=== PATIENT | female | born 1950 | race Caucasian/White ===

== ENCOUNTER 2018-12-23 06:18 | Day surgery (SDC) | payer MEDICARE ==
[2018-12-23] MEDS ORDERED: DIPRIVAN 200 MG/20 ML IV ONE (06:19)
[2018-12-23] MEDS ORDERED: Lactated Ringers 1,000 ML IV SCH (06:30)
--- NOTE | 2018-12-23 08:35 | OP ---
SURGERY DATE/TIME: 12/23/2018 0755 PREOPERATIVE DIAGNOSIS: Screening exam. POSTOPERATIVE DIAGNOSIS: Polyp in the proximal transverse colon. PROCEDURE: Colonoscopy with hot polypectomy snare removal of transverse colon polyp. SURGEON: Dr. Cruz. ANESTHESIA: MAC. Medications given by anesthesia department. HISTORY: The patient is a 68 year-old white female presenting now for colonoscopic evaluation. She was appraised of the risks of the procedure including the risk of perforation, phlebitis, untoward reaction to medication, bleeding and missed lesions. The patient verbalized her understanding and desired to have the procedure performed. DESCRIPTION OF PROCEDURE: The patient was given the medications by the anesthesia department. She had continuous pulse oximetry, ECG monitoring, intermittent blood pressure monitoring and tidal CO2 monitoring during the examination. She was placed in the left lateral decubitus position. A digital rectal examination was performed and revealed normal anal sphincter tone and no masses. The flexible Olympus pediatric colonoscope was used to intubate the rectum. A view of the colon was developed sequentially to the cecum. Upon insertion and withdrawal was noted a polyp measuring approximately 1.5 cm in size that was somewhat pedunculated this is removed using hot polypectomy snare and retrieved for pathologic evaluation. No other mucosal lesions being noted, the scope was removed from the patient who tolerated the procedure well and was sent back to OP recovery in good condition. The prep was noted to be fair to good.
[2018-12-23 09:09] VITALS: O2SAT 98
[2018-12-23 09:25] VITALS: BP 154/69; PULSE 61
== END 2018-12-23 09:30 | disposition home or self-care (01) ==
LOC: SDC 06:18
PROVIDERS: ATTEND Family Medicine
DX: Z12.11 Encounter for screening for malignant neoplasm of colon (principal); K63.5 Polyp of colon; E11.9 Type 2 diabetes mellitus without complications; I10 Essential (primary) hypertension; K21.9 Gastro-esophageal reflux disease without esophagitis
CPT/HCPCS: J2704

== ENCOUNTER 2020-03-24 06:47 | Day surgery (SDC) | payer MEDICARE ==
[2020-03-24] MEDS ORDERED: EMLA Cream 5 GM TP ONE ×2 (06:53→06:57)
[2020-03-24] MEDS ORDERED: Lactated Ringers 1,000 ML IV ONE ×2 (06:53→07:24)
[2020-03-24] MEDS ORDERED: Lactated Ringers 1,000 ML IV SCH (07:00)
[2020-03-24] MEDS ORDERED: Sensorcaine 0.25% 10 ML ONE (07:24)
--- NOTE | 2020-03-24 08:00 | HP ---
DATE OF SURGERY: 03/24/2020 ADMISSION DIAGNOSIS: Left breast cancer. ANTICIPATED PROCEDURE: Wide resection and [place] node. HISTORY OF PRESENT ILLNESS: The patient had biopsy proven left breast cancer located about 2:00 left axilla that is palpable, size is 1.7 per radiograph. Options discussed with her and she wished to proceed with breast conservation therapy if possible. Risks would include radiation therapy and she is aware of this and it is independent of chemotherapy or hormone manipulation which would be separate. PAST MEDICAL HISTORY: ALLERGIES: DIPHENHYDRAMINE HCL. MEDICATIONS: See list. PAST SURGICAL HISTORY: None recent. SOCIAL HISTORY: Negative. FAMILY HISTORY: Negative. REVIEW OF SYSTEMS: CVS: Negative. PULMONARY: Negative. PHYSICAL EXAMINATION: VITAL SIGNS: Normal. CHEST: Clear. COR: Regular. ABDOMEN: Satisfactory. BREAST: There is a mass left upper outer breast that is palpable but just barely. There is a little bruising from the needle tap headed to this lesion. There is no palpable lymphadenopathy. IMPRESSION: Left breast biopsy proven cancer. PLAN: Left lumpectomy, axillary [place] lymph node biopsy, continued treatment as necessary.
[2020-03-24] MEDS ORDERED: CEFAZOLIN 2 GM-D5W BAG** 2 GM/50 ML ML IV ONE (08:11)
[2020-03-24] MEDS ORDERED: CEFAZOLIN 2 GM-D5W BAG** 2 GM/50 ML ML IV SCH (08:30)
--- NOTE | 2020-03-24 11:35 | XRAY ---
Indication: Left breast carcinoma. Patient received 4 left breast periareolar subcutaneous injections totaling 850 Ci of technetium 99 sulfur colloid. Warm compress applied. Delayed imaging obtained in the anterior and lateral plane demonstrates a single focus of increased radiopharmaceutical activity far lateral left chest. Skin was demarcated for the surgeon. Impression: Single focus radiopharmaceutical active lymph node far lateral aspect left chest.
[2020-03-24] MEDS ORDERED: BRIDION 200MG/2ML IV ONE (12:07)
[2020-03-24] MEDS ORDERED: Decadron 4 MG INJ ONE (12:07)
[2020-03-24] MEDS ORDERED: Zemuron 100 MG/10 ML ONE (12:07)
[2020-03-24] MEDS ORDERED: DIPRIVAN 200 MG/20 ML IV ONE (12:07)
[2020-03-24] MEDS ORDERED: SUBLIMAZE 100 MCG/2 ML ONE ×2 (12:07→13:33)
[2020-03-24] MEDS ORDERED: Zofran 4 MG/2 ML VIAL ONE ×2 (12:07→13:32)
[2020-03-24] MEDS ORDERED: DILAUDID 2 MG INJECTION ONE (13:34)
[2020-03-24 14:57] VITALS: O2SAT 98
[2020-03-24 15:53] VITALS: PULSE 78
[2020-03-24 17:19] VITALS: BP 155/85
--- NOTE | 2020-03-25 07:49 | OP ---
SURGERY DATE/TIME: 03/24/2020 1206 PREOPERATIVE DIAGNOSIS: Left breast cancer. POSTOPERATIVE DIAGNOSIS: Left breast cancer. PROCEDURES: 1) Wide excision of left breast through one incision. 2) Left axillary Rembert lymph node through a second incision. SURGEON: Serafin Skaggs M.D. ANESTHESIA: General. COMPLICATIONS: None. CONDITION: Stable. INDICATION: The patient has biopsy proven invasive cancer. DESCRIPTION OF PROCEDURE: Taken to surgery. General anesthetic. Routine prep and drape. The Node Seeker was used in the inferior axillary area. Rembert node was sent. There were some succulent nodes above this which were sent separately. The Rembert node had counts of over 400. This incision was closed over a drain. The breast incision was taken separately and the breast lesion was widely excised. Hemostasis obtained with electrocautery. Closed with 3-0 Vicryl, 4-0 Vicryl and Steri-Strips. The patient tolerated the procedure satisfactorily.
== END 2020-03-24 16:55 | disposition home or self-care (01) ==
LOC: SDC 06:47
PROVIDERS: ATTEND Surgery
DX: C50.912 Malignant neoplasm of unspecified site of left female breast (principal); E11.9 Type 2 diabetes mellitus without complications; Z79.899 Other long term (current) drug therapy
CPT/HCPCS: 19120; 38500; 78195; 82962; 93005; A9541; 88307; 88360; 99100; J0690; J1100; J1170; J2405; J2704; J3010; A9270-GY

== ENCOUNTER 2021-05-04 09:25 | Day surgery (SDC) | payer MEDICARE ==
--- NOTE | 2021-04-28 14:58 | HP ---
DATE OF SURGERY: 05/04/2021 HISTORY OF PRESENT ILLNESS: The patient presents with a history of a left breast cancer. The patient had chemotherapy per her report. The patient has been cleared for removal of her port. The patient desires removal. PAST MEDICAL HISTORY: Diabetes, breast cancer, kidney disease, reflux. PAST SURGICAL HISTORY: Two sections. Left breast surgery. Port placement. ALLERGIES: NKDA. MEDICATIONS: Humalog, folic acid, omeprazole, loratadine, anastrozole, gabapentin, glipizide, vitamin B12, Zetia, acebutolol. FAMILY HISTORY: None reported. SOCIAL HISTORY: None reported. REVIEW OF SYSTEMS: CONSTITUTIONAL: Denies fever or chills. CHEST: Denies shortness of breath. CVS: Denies chest pain. ABDOMEN: Denies abdominal pain. INTEGUMENTARY: Negative. PHYSICAL EXAMINATION: GENERAL: No acute distress. CHEST: Nonlabored. No shortness of breath. CVS: Regular rate and rhythm. ABDOMEN: Soft. EXTREMITIES: No edema. NEUROLOGIC: Alert. PSYCHIATRIC: Appropriate. IMPRESSION: Undesired port. PLAN: Port-A-Cath removal with Dr. Serafin Skaggs. As dictated by Bere Pierce NP.
[~2021-05-04 09:25] MED LIST: XYLOCAINE 1% HCL 20 ML MDV ONE
[2021-05-04] MEDS ORDERED: Lactated Ringers 1,000 ML IV SCH (10:00)
[2021-05-04] MEDS ORDERED: Xylocaine-Mpf 2% 5 Ml Vial ONE (11:55)
[2021-05-04] MEDS ORDERED: SUBLIMAZE 100 MCG/2 ML ONE (11:55)
[2021-05-04] MEDS ORDERED: Versed 2 MG/2 ML Injection ONE (11:55)
[2021-05-04] MEDS ORDERED: DIPRIVAN 200 MG/20 ML IV ONE (11:55)
[2021-05-04 14:19] VITALS: BP 192/90; PULSE 53; O2SAT 100
--- NOTE | 2021-05-04 14:49 | OP ---
SURGERY DATE/TIME: 05/04/2021 1233 PREOPERATIVE DIAGNOSIS: Patient completed therapy requiring port removal. POSTOPERATIVE DIAGNOSIS: Patient completed therapy requiring port removal. PROCEDURE: Complete port removal. SURGEON: Serafin Skaggs M.D. ANESTHESIA: MAC. INDICATION: A patient requiring port removal. She did request anesthetic. DESCRIPTION OF PROCEDURE: She was taken to surgery. MAC sedation. Routine prep and drape. 1% lidocaine. Port-A-Cath removed in toto. The catheter hole closed 3-0 Vicryl. Skin closed with 4-0 Vicryl and Steri-Strips. The patient tolerated the procedure satisfactorily.
== END 2021-05-04 14:10 | disposition home or self-care (01) ==
LOC: SDC 09:25
PROVIDERS: ATTEND Surgery
DX: Z45.2 Encounter for adjustment and management of vascular access device (principal); Z85.3 Personal history of malignant neoplasm of breast; E11.9 Type 2 diabetes mellitus without complications; Z79.899 Other long term (current) drug therapy
CPT/HCPCS: 82947; J2250; J2704; J3010

== ENCOUNTER 2021-06-08 14:03 | Emergency (ER) | payer MEDICARE ==
--- NOTE | 2021-06-08 14:34 | ERPHSYRPT ---
- History of Present Illness Time Seen by Provider: 06/08/21 14:05 Source: patient, EMS Exam Limitations: no limitations Patient Subjective Stated Complaint: Pt was trampled by her dogs in her house and landed on her right leg, right hip and left shoulder Triage Nursing Assessment: Pt brought to the ER by EMS, hypertensive, rates pain 8/10 to right hip, right leg, and left shoulder, no bruising noted, no bleeding, pt got hit by her laborador dogs and fell from standing to the carpeted floor, denies LOC, denies hitting head, doesn't appear to be in any distress Physician History: 70-year-old female presented in the ER after ground-level fall when her Labrador dog hit her and she landed on right hip on a carpeted floor and is also complaining of some pain in the left shoulder with history of previous shoulder surgeries. Patient reports not hitting her head, neck or back without any loss of consciousness or feeling dizzy/lightheaded. Denies any chest or abdominal pain. No limb shortening noticed. She does not remember hitting her left shoulder but does have pain. She was not able to get up and ambulate until EMS arrived. Occurred: this afternoon Reason for Fall: fell from standing pos Injuries/Pain Location: lower extremity Loss of Consciousness: no loss of consciousness Quality: dullness, sharpness Severity of Pain-Max: moderate Severity of Pain-Current: moderate Modifying Factors: Improves With: rest. Worsens With: movement Associated Symptoms (Fall): extremity injury, No abdominal pain, No back pain, No confusion, No dizziness, No headache, No lightheadedness, No muscle spasms, No nausea, No neck pain, No ringing in ears, No seizures, No shortness of breath, No slurred speech, No trouble walking, No vomiting, No vision changes Allergies/Adverse Reactions: diphenhydramine HCl [From Benadryl] Allergy (Mild, Verified 06/08/21 14:14) Rash red face Home Medications: Cholecalciferol (Vitamin D3) [Vitamin D3] 400 unit PO DAILY 12/17/18 [History] Ezetimibe 10 mg [Zetia 10 MG] 10 mg PO DAILY 12/17/18 [History] Loratadine 10 mg [Claritin 10 mg] 10 mg PO DAILY 12/17/18 [History] Acebutolol 200 mg [Sectral 200 MG] 200 mg PO DAILY 12/23/18 [History] Gabapentin [Neurontin] 300 mg PO TID 12/23/18 [History] Glipizide 5 mg [Glucotrol 5 MG] 5 mg PO BID 12/23/18 [History] Omeprazole 20 mg PO DAILY 12/23/18 [History] Anastrozole [Arimidex] 1 mg PO DAILY 04/27/21 [History] Folic Acid 1 mg [Folate 1 mg] 1 mg PO DAILY 04/27/21 [History] Insulin Lispro [Humalog] 100 unit SQ QID 04/27/21 [History] Vit B12/Pyridoxine HCl/Vit B1 [Neuro-B12 Forte Nr Vial] 10 ml IM CLARIFY 04/27/21 [History] Hx Tetanus, Diphtheria Vaccination/Date Given: Yes Hx Influenza Vaccination/Date Given: Yes Hx Pneumococcal Vaccination/Date Given: Yes Travel Risk - International Travel Have you traveled outside of the country in past 3 weeks: No - Coronavirus Screening Are you exhibiting any of the following symptoms?: No Close contact with a COVID-19 positive Pt in past 14-21 Days: No - Vaccine Status Have you recieved a Covid-19 vaccination: Yes [employer] Dean: Moderna - Vaccination Dates Date of 2cond Vaccination (if applicable): 12/2020 - Review of Systems Constitutional: No Symptoms Eyes: No Symptoms Ears, Nose, & Throat: No Symptoms Respiratory: No Symptoms Cardiac: No Symptoms Abdominal/Gastrointestinal: No Symptoms Genitourinary Symptoms: No Symptoms Musculoskeletal: Fall, Injury, Joint Pain Neurological: No Symptoms Psychological: No Symptoms Endocrine: No Symptoms Hematologic/Lymphatic: No Symptoms - Past Medical History Pertinent Past Medical History: Yes Neurological History: No Pertinent History ENT History: Cataracts Cardiac History: High Cholesterol, Hypertension Respiratory History: No Pertinent History Endocrine Medical History: Diabetes Type II Musculoskeletal History: Other GI Medical History: GERD History: Other Psycho-Social History: No Pertinent History Female Reproductive Disorders: No Pertinent History Other Medical History: 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, psoriatic arthritis - Past Surgical History Past Surgical History: Yes Neuro Surgical History: No Pertinent History Cardiac: No Pertinent History Respiratory: No Pertinent History Gastrointestinal: No Pertinent History Genitourinary: No Pertinent History Musculoskeletal: Orthopedic Surgery Female Surgical History: Section, Tubal Ligation Other Surgical History: left arm fx repair with hardware,breast cancer surgery,left rotator cuff, port placed,left arm tanvir placed,c-sections times 2 - Social History Smoking Status: Never smoker Exposure to second hand smoke: No Drug Use: none Patient Lives Alone: No - Female History Hx Now: No - Nursing Vital Signs Nursing Vital Signs: Initial Vital Signs Temperature 97.7 F 06/08/21 14:04 Pulse Rate 62 06/08/21 14:04 Respiratory Rate 21 06/08/21 14:04 Blood Pressure 195/100 06/08/21 14:04 O2 Sat by Pulse Oximetry 98 06/08/21 14:04 Pain Scale Pain Intensity 8 - [place] Coma Score Best Eye Response (Springer): (4) open spontaneously Best Verbal Response (Springer): (5) oriented Best Motor Response ([place]): (6) obeys commands [place] Total: 15 - Physical Exam General Appearance: no apparent distress, alert Head Injury: no evidence of injury, No raccoon eyes, No swelling, No tenderness Eye Exam: PERRL/EOMI, eyes nml inspection ENT Exam: airway nml, No evidence of ENT injury, No dental injury Neck Exam: supple, trachea midline, full range of motion, normal alignment, normal inspection Respiratory/Chest Exam: normal breath sounds, respiratory distress, No chest tenderness Cardiovascular Exam: normal heart sounds, regular rate/rhythm Gastrointestinal Exam: soft, normal bowel sounds, No tenderness Back Exam: normal inspection, normal range of motion, No CVA tenderness Extremity Exam: normal inspection, normal range of motion, pelvis stable, bony point tenderness (Right upper tibia.), hip tenderness (Right. 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 Offered pain medication which she refused. No limitation range of motion but does have some pain with movements. Recommended taking Tylenol as needed and outpatient follow-up. Discussed signs symptoms of worsening needing return to ER which she seems understanding. She is advised to use walker/cane for ambulation as needed. It was a clear mechanical fall, do not think needs any lab work or further evaluation and also did not hit her head. Stable for discharge with outpatient follow-up. Discussed signs symptoms of worsening needing return to ER which he seems understanding. Counseled pt/family regarding: diagnosis, need for follow-up, rad results - Departure Departure Disposition: Home Clinical Impression: Fall from ground level Contusion of right hip Qualifiers: Encounter type: initial encounter Qualified Code(s): S70.01XA - Contusion of right hip, initial encounter Left shoulder strain Qualifiers: Encounter type: initial encounter Qualified Code(s): S46.912A - Strain of unspecified muscle, fascia and tendon at shoulder and upper arm level, left arm, initial encounter Condition: Stable Critical Care Time: No Referrals: SAMAN BARNETT [Primary Care Provider] - (Call tomorrow for reevaluation) Instructions: Contusion (DC), Preventing Falls Additional Instructions: Take Tylenol as needed. Use cane/walker for ambulation as needed. Follow-up with primary care for reevaluation. Return to ER for worsening pain, difficulty ambulation or if have any headache, dizziness, lightheadedness, not feeling herself etc.
[2021-06-08 15:24] VITALS: BP 149/76; PULSE 57
--- NOTE | 2021-06-08 15:48 | XRAY ---
Exam: Two-view right lower leg exam from 06/08/2021. Comparison: None. Indication: 70-year-old female, status post fall. Findings: 2 AP images and 2 lateral images are submitted for evaluation. The bones are demineralized. I do not see any evidence of acute fracture of the right tibia or fibula. Extensive vascular calcification is seen. Is this patient diabetic? Moderate tricompartmental osteoarthritis of the right knee is seen. I also note some mild hypertrophic spurring involving the distal end of the medial malleolus. The right ankle mortise appears fairly well-maintained. Moderate plantar and mild posterior right calcaneal spurring is seen. Moderate degenerative changes are seen within the distal tarsal region, as well as the tarsal-metatarsal junctions. Impression: 1. I see no acute fracture of the right tibia or fibula. 2. Bone demineralization, extensive atherosclerotic vascular calcification, tricompartmental osteoarthritis of the right knee, calcaneal spurring, and advanced degenerative changes of the right midfoot and distal hindfoot are seen.
--- NOTE | 2021-06-08 15:56 | XRAY ---
Exam: 3 views of the left shoulder from 06/08/2021. Comparison: None. Indication: 70-year-old female, status post fall. Findings: AP internal rotation, AP external rotation, and two Y views of the left shoulder were obtained. I see no acute fracture or dislocation. There is a mid left humerus orthopedic side plate with at least 6 adjoining screws. There is perhaps an old healed fracture which is partially seen within the mid left humerus. The left acromioclavicular joint space is very prominent, as I believe there has been prior surgical excision of the lateral end of the left clavicle. There is some mild spurring along the undersurface of the acromion of the left scapula. The glenohumeral joint space is mildly narrowed. The bones are demineralized. I note some subtle soft tissue calcifications overlying the superior medial aspect of the left humeral head and just superior to the glenohumeral joint space. This may reflect hydroxyapatite deposition disease. Impression: 1. No acute fracture or dislocation of the left shoulder is seen. 2. Numerous other incidental findings, as discussed above.
--- NOTE | 2021-06-08 16:04 | XRAY ---
Exam: 4 view left humerus series from 06/08/2021. Comparison: None. Indication: 70-year-old female, status post fall. Findings: 4 images including AP internal rotation and AP external rotation images were obtained. An orthopedic sideplate with 6 adjoining screws traverses a healed or almost healed fracture of the left humeral shaft centered just distal to the midpoint. A definite acute fracture line is not seen. The bones are demineralized. The orthopedic sideplate appears intact. I again see apparent prior surgical excision of the lateral end of the left clavicle. Mild narrowing of the glenohumeral joint space of the left shoulder is seen. There also appears to be soft tissue calcifications adjacent to the superior and superior medial edge of the left humeral head which may reflect hydroxyapatite deposition disease. The left lung appears grossly clear. Impression: 1. I see no acute fracture of the left humerus. 2. There is a healed or almost healed fracture of the left humeral shaft just distal to the midpoint which is being secured in near anatomical position and alignment by an traversing orthopedic sideplate and 6 adjoining screws. Correlate with trauma history.
--- NOTE | 2021-06-08 16:10 | XRAY ---
Exam: 2 views the right hip including an AP film of the pelvis from 06/08/2021. Comparison: None. Indication: 70-year-old female, status post fall. Findings: Coned-down AP and frog-leg lateral views of the right hip were obtained. In addition, an AP view of the pelvis including both hips was obtained. The patient is mildly rotated toward the left on the pelvis radiograph. Moderate stool is seen within the distal descending colon and rectosigmoid colon. No obvious bowel obstruction is seen. No acute fracture or dislocation of the right hip is seen. The bones are significantly demineralized. The hip joint spaces are fairly well-preserved, although there is some mild marginal acetabular spurring. No definite fracture within the pelvis is seen. I note some deformity at the superior lateral margin of the left iliac bone which appears to be chronic. Some soft tissue calcification is seen overlying both femoral regions, right greater than left. The reason for this is not clear. Arthritic change is seen within the lower lumbar spine at L4-L5. Impression: 1. No acute fracture or dislocation of the right hip. 2. Significant bone demineralization. 3. Other incidental findings, as discussed above.
[2021-06-08 16:30] VITALS: O2SAT 98
== END 2021-06-08 16:49 | disposition home or self-care (01) ==
LOC: ED 14:03
DX: S70.01XA Contusion of right hip, initial encounter (principal); S46.912A Strain of unspecified muscle, fascia and tendon at shoulder and upper arm level, left arm, initial encounter; Z79.899 Other long term (current) drug therapy; I10 Essential (primary) hypertension; E78.00 Pure hypercholesterolemia, unspecified; E11.9 Type 2 diabetes mellitus without complications; W54.1XXA Struck by dog, initial encounter
CPT/HCPCS: 73030; 73060; 73502; 73590; 99284

== ENCOUNTER 2021-07-02 11:50 | Emergency (ER) | payer MEDICARE ==
[2021-07-02 12:19] VITALS: O2SAT 100
--- NOTE | 2021-07-02 12:35 | ERPHSYRPT ---
- History of Present Illness Time Seen by Provider: 07/02/21 12:32 Source: patient Exam Limitations: no limitations Patient Subjective Stated Complaint: C/O pain to right hand, fingers, and wrist. States she fell a few weeks ago but the pain started a few days ago. She does not feel like this pain is related to the fall or her arthritis. Patient states, "this is a different pain than my arthritis pain." Triage Nursing Assessment: Patient ambulated back to ED without difficulties. Patient is alert and able to answer questions appropriately. Patient is able to bend/move fingers and wrist to RUE. Good capillary refill. Radial pulse present. Fingers and wrist are swollen. Anterior wrist is red and warm. No skin alterations noted to RUE anywhere. Physician History: C/O pain to right hand, fingers, and wrist. States she fell a few weeks ago but the pain started a few days ago. She does not feel like this pain is related to the fall or her arthritis. Patient states, "this is a different pain than my arthritis pain." Occurred: last week Method of Injury: fell Quality: constant Severity of Pain-Max: moderate Severity of Pain-Current: moderate Extremities Pain Location: wrist: right, hand: right Modifying Factors: Improves With: nothing Associated Symptoms: none Body Map: 1 - area of swelling and pain Allergies/Adverse Reactions: diphenhydramine HCl [From Benadryl] Allergy (Mild, Verified 07/02/21 12:19) Rash red face Home Medications: Cholecalciferol (Vitamin D3) [Vitamin D3] 400 unit PO DAILY 12/17/18 [History] Ezetimibe 10 mg [Zetia 10 MG] 10 mg PO DAILY 12/17/18 [History] Loratadine 10 mg [Claritin 10 mg] 10 mg PO DAILY 12/17/18 [History] Acebutolol 200 mg [Sectral 200 MG] 200 mg PO DAILY 12/23/18 [History] Gabapentin [Neurontin] 300 mg PO TID 12/23/18 [History] Omeprazole 20 mg PO DAILY 12/23/18 [History] Anastrozole [Arimidex] 1 mg PO DAILY 04/27/21 [History] Folic Acid 1 mg [Folate 1 mg] 1 mg PO DAILY 04/27/21 [History] Insulin Lispro [Humalog] 100 unit SQ QID 04/27/21 [History] Vit B12/Pyridoxine HCl/Vit B1 [Neuro-B12 Forte Nr Vial] 10 ml IM CLARIFY 04/27/21 [History] Hx Tetanus, Diphtheria Vaccination/Date Given: Yes Hx Influenza Vaccination/Date Given: Yes Hx Pneumococcal Vaccination/Date Given: Yes Travel Risk - International Travel Have you traveled outside of the country in past 3 weeks: No - Coronavirus Screening Are you exhibiting any of the following symptoms?: No Close contact with a COVID-19 positive Pt in past 14-21 Days: No - Vaccine Status Have you recieved a Covid-19 vaccination: Yes Hematology Supervisor: Moderna - Vaccination Dates Date of 2cond Vaccination (if applicable): 12/2020 - Review of Systems Constitutional: No Symptoms Eyes: No Symptoms Ears, Nose, & Throat: No Symptoms Respiratory: No Symptoms Cardiac: No Symptoms Abdominal/Gastrointestinal: No Symptoms Genitourinary Symptoms: No Symptoms Musculoskeletal: Fall, Joint Pain, Joint Swelling, No Injury, No Joint Redness Skin: No Symptoms Neurological: No Symptoms Psychological: No Symptoms - Past Medical History Pertinent Past Medical History: Yes Neurological History: No Pertinent History ENT History: Cataracts Cardiac History: High Cholesterol, Hypertension Respiratory History: No Pertinent History Endocrine Medical History: Diabetes Type II Musculoskeletal History: Other GI Medical History: GERD History: Other Psycho-Social History: No Pertinent History Female Reproductive Disorders: No Pertinent History Other Medical History: 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, psoriatic arthritis - Past Surgical History Past Surgical History: Yes Neuro Surgical History: No Pertinent History Cardiac: No Pertinent History Respiratory: No Pertinent History Gastrointestinal: No Pertinent History Genitourinary: No Pertinent History Musculoskeletal: Orthopedic Surgery Female Surgical History: Section, Tubal Ligation Other Surgical History: left arm fx repair with hardware,breast cancer surgery,left rotator cuff, port placed,left arm tanvir placed,c-sections times 2 - Social History Smoking Status: Never smoker Exposure to second hand smoke: No Drug Use: none Patient Lives Alone: No - Nursing Vital Signs Nursing Vital Signs: Initial Vital Signs Temperature 97.7 F 07/02/21 12:00 Pulse Rate 67 07/02/21 12:00 Respiratory Rate 20 07/02/21 12:00 Blood Pressure 154/97 07/02/21 12:00 O2 Sat by Pulse Oximetry 100 07/02/21 12:00 Pain Scale Pain Intensity 9 - Physical Exam General Appearance: no apparent distress Eyes, Ears, Nose, Throat Exam: normal ENT inspection Neck Exam: normal inspection Cardiovascular/Respiratory Exam: chest non-tender Abdominal Exam: non-tender Shoulder Exam: normal inspection Elbow/Forearm Exam: normal inspection Wrist Exam: limited ROM, pain, soft tissue tenderness, swelling, No normal ROM, No bone tenderness Hand Exam: limited ROM, soft tissue tenderness, stiffness, swelling SpO2: 100 Procedures - Splinting Time of Procedure: 12:58 Location of Splint: Right, Wrist Type of Splint: Velcro Splint Splint Applied By: ED Nurse Pre-Proc Neuro Vasc Exam: normal Post-Proc Neuro Vasc Exam: neurovascular intact - Course Nursing assessment & vital signs reviewed: Yes - Radiology Exams Wrist X-ray Interpretation: Reviewed by me (right scaphoid fracture) Ordered Tests: Active Orders 24 hr Category Date Time Status Splint STAT Care 07/02/21 12:54 Active FOREARM Stat Exams 07/02/21 12:37 Taken HAND (MINIMUM 3 VIEWS) Stat Exams 07/02/21 12:17 Taken - Progress Progress: unchanged, pain not gone completely Counseled pt/family regarding: diagnosis, rad results - Departure Departure Disposition: Home Clinical Impression: Scaphoid fracture, wrist, closed Qualifiers: Encounter type: initial encounter Scaphoid bone location: middle third Fracture alignment: nondisplaced Laterality: right Qualified Code(s): S62.024A - Nondisplaced fracture of middle third of navicular [scaphoid] bone of right wrist, initial encounter for closed fracture Condition: Stable Critical Care Time: No Referrals: SAMAN BARNETT [Primary Care Provider] - [facility] M-F [id number] Instructions: Boxer's Fracture (DC) Additional Instructions: Discharge/Care Plan OSIELJAYLON WINCHESTER was seen on 07/02/21 in the Emergency Room. The patient was counseled regarding Diagnosis,Lab results, Imaging studies, need for follow up and when to return to the Emergency Room. Prescriptions given: Discharge Note I have spoken with the patient and/or caregivers. I have explained the patient's condition, diagnosis and treatment plan based on the information available to me at this time. I have answered the patient's and/or caregiver's questions and addressed any concerns. The patient and/or caregivers have as good understanding of the patient's diagnosis, condition and treatment plan as can be expected at this point. The vital signs have been stable. The patient's condition is stable and appropriate for discharge from the emergency department. The patient will pursue further outpatient evaluation with the primary care physician or other designated or consulting physician as outlined in the d ischarge instructions. The patient and/or caregivers are agreeable to this plan of care and follow-up instructions have been explained in detail. The patient and/or caregivers have received these instruction. The patient/and or caregivers are aware that any significant change in condition or worsening of symptoms should prompt an immediate return to this or the closest emergency department or call 911. CARTAGENAJAYLON RANULFO was seen on 07/02/21 n the Emergency Room. At that time you were treated for an emergent condition, during your visit Laboratory, Radiology and/or other procedures may have been ordered. It is very important that you follow-up with your Primary Care Physician SAMAN BARNETT within the next 24-48 hours to review your Emergency Room visit and the final results of testing that was ordered. Some test results such as Urine Cultures, Blood Cultures, and other cultures if ordered will not be finalized for 24-48 hours. If you do not have a Primary Care Provider please call the [facility] dep [facility] at [phone] ext [phone] to obtain a copy of your results or you may sign into our patient portal to obtain these results by visiting us @ [email or web address] and completing the following steps: 1. Click on the Patient Portal link 2. Click the Patient Self Enrollment Link to complete the enrollment form and entering your 3. Once the enrollment form is completed you will receive an email with a temporary ID and password at the email address you provided. 4. Next choose a user name and password. Your user name must be at least 4 characters long and your password must be at least 4 characters long. 5. Choose a security question from the list and provide your answer to the question. If you already have signed into the Health Portal you may access your Health Care Information 08/04 by the following steps: 1. Login to our website @ [email or web address] 2. Enter your original user name and password. FAQS The [facility] Health Portal is an online tool that contains your Lab Results, Radiology Reports, Visit History, Discharge Instructions and Health Summary Lab and Radiology Results will not be available for 72 hours on the portal. The Portal is a secure site, passwords are encryted and URLs are re-written so they cannot be copied and pasted. You and authorized family members are the only ones who can access your Portal. Also there is a timeout feature that protects your information if you leave the Portal page open. If you have technical difficulty please use the Contact Us link on the page this will allow you to submit any questions you have regarding the Portal or you may contact the Medical Record Department at [phone] ext [phone]. Prescriptions: Naproxen 375 mg [Naprosyn 375 mg] 375 mg PO Q8H #15 tablet
[2021-07-02 12:59] VITALS: BP 166/91; PULSE 62
--- NOTE | 2021-07-02 22:11 | XRAY ---
Indication: Pain following fall 3 weeks ago. Comparison: None 2 view right forearm demonstrates osteopenia, moderate/advanced wrist osteoarthritis, and extensive vascular calcifications. No acute fracture, dislocation, or suspicious bony lesions.
--- NOTE | 2021-07-02 22:13 | XRAY ---
Indication: Pain following fall 3 weeks ago. Comparison: None 3 view right hand demonstrates osteopenia, moderate/advanced osteoarthritis all IP joints/all MCP/1st metacarpal multangular articulation/wrist, and extensive vascular calcifications. No acute fracture, dislocation, or suspicious bony lesions.
== END 2021-07-02 13:21 | disposition home or self-care (01) ==
LOC: ED 11:50
DX: S62.021A Displaced fracture of middle third of navicular [scaphoid] bone of right wrist, initial encounter for closed fracture (principal); M25.531 Pain in right wrist; M79.641 Pain in right hand; M79.644 Pain in right finger(s); W19.XXXS Unspecified fall, sequela; M19.90 Unspecified osteoarthritis, unspecified site; Z79.899 Other long term (current) drug therapy
CPT/HCPCS: 73090; 73130; 99284; L3908

== ENCOUNTER 2022-07-12 09:46 | Day surgery (SDC) | payer MEDICARE ==
--- NOTE | 2022-07-10 11:38 | HP ---
DATE OF SURGERY: 07/12/2022 HISTORY OF PRESENT ILLNESS: The patient is a 71-year-old female who presents with complaints of some recently increasing firmness at her old breast lumpectomy site. This is concerning for the patient as she thinks this is recurrence of breast cancer. She saw Dr. Rivera six months ago and had a negative mammogram. The patient was thinking that since then this area has become more prominent and firmer. It appears that the cancer she had with treatment was radiation treatment and lumpectomy back in 2019 of left breast. PAST MEDICAL HISTORY: Breast cancer. Hyperlipidemia. Diabetes. PAST SURGICAL HISTORY: Left breast lumpectomy. section. ALLERGIES: BENADRYL. MEDICATIONS: Allopurinol, anastrozole, metformin, Zetia, Lantus, Simvastatin, diclofenac, insulin, folic acid, glipizide, Levemir, gabapentin. FAMILY HISTORY: None reported. SOCIAL HISTORY: None reported. REVIEW OF SYSTEMS: CONSTITUTIONAL: Denies fever or chills. CHEST: Denies shortness of breath. CVS: Denies chest pain. ABDOMEN: Denies abdominal pain. PHYSICAL EXAMINATION: GENERAL: No acute distress. CHEST: Nonlabored. No shortness of breath. CVS: Regular rate and rhythm. ABDOMEN: Soft. IMPRESSION: A recently increased firmness at old lumpectomy site of left breast and history of left breast cancer. PLAN: Left breast re-excision of previous lumpectomy site with Dr. Serafin Skaggs. As dictated by Bere Pierce NP.
[~2022-07-12 09:46] MED LIST changes: +Sensorcaine 0.25% 10 ML ONE; -XYLOCAINE 1% HCL 20 ML MDV ONE
[2022-07-12] MEDS ORDERED: Lactated Ringers 1,000 ML IV SCH (10:00)
[2022-07-12] MEDS ORDERED: CEFAZOLIN 2 GM-D5W BAG** 2 GM/50 ML ML IV SCH (10:00)
[2022-07-12 10:43] LABS: ALBUMIN 4.3 g/dL (3.5-5.0); BILIRUBIN,TOTAL 0.6 mg/dL (0.2-1.3); Calcium 9.4 mg/dL (8.4-10.2); Creatinine 1 1.37 mg/dL (0.52-1.04); EST GLOMERULAR FILTRATION RATE 40.3 ML/MIN; Potassium 3.8 mmol/L (3.5-5.1); Total Protein 7.3 g/dL (6.3-8.2)
[2022-07-12] MEDS ORDERED: Versed 2 MG/2 ML Injection ONE (12:27)
[2022-07-12] MEDS ORDERED: DIPRIVAN 200 MG/20 ML IV ONE (12:27)
[2022-07-12] MEDS ORDERED: Xylocaine-Mpf 2% 5 Ml Vial ONE (12:27)
[2022-07-12] MEDS ORDERED: SUBLIMAZE 100 MCG/2 ML ONE ×2 (12:28→13:31)
[2022-07-12] MEDS ORDERED: Ephedrine Sulfate 50 MG/ML ONE (12:45)
[2022-07-12] MEDS ORDERED: Zofran 4 MG/2 ML VIAL ONE (13:09)
--- NOTE | 2022-07-12 13:30 | OP ---
SURGERY DATE/TIME: 07/12/2022 1230 PREOPERATIVE DIAGNOSIS: Left breast mass previous biopsy site. POSTOPERATIVE DIAGNOSIS: Left breast mass previous biopsy site. PROCEDURE: Left partial mastectomy. SURGEON: Serafin Skaggs M.D. JAVA WEB DEVELOPER: Judith Enriquez M.D. ANESTHESIA: General. COMPLICATIONS: None. CONDITION: Stable. DRAINS: One. INDICATION: The patient has purulence at the middle of the previous biopsy site. It is concerning and requires biopsy. DESCRIPTION OF PROCEDURE: She is taken to surgery. General anesthetic. Routine prep and drape. Flap was elevated. Skin and subcu and then the old field was removed. It was a partial mastectomy. It was about 15-20% of her breast tissue. Hemostasis obtained with electrocautery. A drain was placed. Closed with 3-0 Vicryl and akua. The patient tolerated the procedure satisfactorily. Findings discussed with her daughter in the waiting room.
[2022-07-12] MEDS ORDERED: NORCO 5/325 MG PO PRN (14:43)
[2022-07-12 15:07] VITALS: BP 162/89; PULSE 64; O2SAT 92
== END 2022-07-12 15:20 | disposition home or self-care (01) ==
LOC: SDC 09:46
PROVIDERS: ATTEND Surgery
DX: N63.20 Unspecified lump in the left breast, unspecified quadrant (principal); E11.9 Type 2 diabetes mellitus without complications; Z08 Encounter for follow-up examination after completed treatment for malignant neoplasm; Z85.3 Personal history of malignant neoplasm of breast
CPT/HCPCS: 36415; 80053; 82947; 93005; 99100; J0690; J2250; J2405; J2704; J3010; A9270-GY

== ENCOUNTER 2022-12-07 09:59 | Inpatient (IN) | payer MEDICARE ==
--- NOTE | 2022-12-07 10:03 | ERPHSYRPT ---
- History of Present Illness Time Seen by Provider: 12/07/22 10:03 Source: patient Exam Limitations: no limitations Physician History: This is a diabetic 72-year-old white female patient of Dr. Cruz who was seen by him on 12/06/2022 and labs were obtained. Patient was called at home today and told to come to the emergency department because her blood sugar was 549 and she had a potassium level of 2.7. Patient states that she does not feel any worse today. However, yesterday's appointment was not scheduled 1 as her routine but she scheduled an appointment because she was not feeling really well but nothing specific. Patient denies shortness of breath. Patient denies chest pain. She has no abdominal pain. She has had no nausea vomiting or diarrhea. Patient has a history of gastroesophageal reflux disease, hypertension, hyperlipidemia, rheumatoid arthritis, renal disease. Timing/Duration: today Severity: mild Associated Symptoms: weakness, No nausea, No vomiting, No abdominal pain, No shortness of breath (Mild), No chest pain Allergies/Adverse Reactions: diphenhydramine HCl [From Benadryl] Allergy (Mild, Verified 12/07/22 10:13) Rash red face Home Medications: Cholecalciferol (Vitamin D3) [Vitamin D3] 1,000 unit PO DAILY 12/17/18 [History] Ezetimibe 10 mg [Zetia 10 MG] 10 mg PO DAILY 12/17/18 [History] Loratadine 10 mg [Claritin 10 mg] 10 mg PO DAILY 12/17/18 [History] Acebutolol 200 mg [Sectral 200 MG] 200 mg PO DAILY 12/23/18 [History] Gabapentin [Neurontin] 300 mg PO TID 12/23/18 [History] Omeprazole 20 mg PO DAILY 12/23/18 [History] Anastrozole [Arimidex] 1 mg PO DAILY 04/27/21 [History] Folic Acid 1 mg [Folate 1 mg] 1 mg PO DAILY 04/27/21 [History] Insulin Lispro [Humalog] 100 unit SQ QID 04/27/21 [History] Vit B12/Pyridoxine HCl/Vit B1 [Neuro-B12 Forte Nr Vial] 10 ml IM CLARIFY 04/27/21 [History] Metformin HCl 500 mg [Glucophage 500 MG] 500 mg PO BIDWM 07/12/22 [Hi story] Glipizide 5 mg [Glucotrol 5 MG] 1 tab PO BID 12/07/22 [History] Insulin Glargine [Lantus Insulin] 20 unit SQ EVENING MEAL 12/07/22 [History] Hx Tetanus, Diphtheria Vaccination/Date Given: Yes Hx Influenza Vaccination/Date Given: Yes Hx Pneumococcal Vaccination/Date Given: Yes Travel Risk - International Travel Have you traveled outside of the country in past 3 weeks: No - Coronavirus Screening Are you exhibiting any of the following symptoms?: No Close contact with a COVID-19 positive Pt in past 14-21 Days: No - Vaccine Status Have you recieved a Covid-19 vaccination: Yes Stator Tester: Moderna - Vaccination Dates Date of 2cond Vaccination (if applicable): 12/2020 - Review of Systems Constitutional: Weakness Eyes: No Symptoms (Mild) Ears, Nose, & Throat: No Symptoms Respiratory: No Symptoms Cardiac: No Symptoms Abdominal/Gastrointestinal: No Symptoms Genitourinary Symptoms: No Symptoms Musculoskeletal: No Symptoms Skin: No Symptoms Neurological: No Symptoms Psychological: No Symptoms Endocrine: No Symptoms Hematologic/Lymphatic: No Symptoms Immunological/Allergic: No Symptoms All Other Systems: Reviewed and Negative - Past Medical History Pertinent Past Medical History: Yes Neurological History: No Pertinent History ENT History: Cataracts Cardiac History: High Cholesterol, Hypertension Respiratory History: No Pertinent History Endocrine Medical History: Diabetes Type II Musculoskeletal History: Rheumatoid Arthritis, Other GI Medical History: GERD History: Renal Disease, Other Psycho-Social History: No Pertinent History Female Reproductive Disorders: Breast Cancer Other Medical History: 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, psoriatic arthritis - Past Surgical History Past Surgical History: Yes Neuro Surgical History: No Pertinent History Cardiac: No Pertinent History Respiratory: No Pertinent History Gastrointestinal: No Pertinent History Genitourinary: No Pertinent History Musculoskeletal: Orthopedic Surgery Female Surgical History: Section, Tubal Ligation Other Surgical History: left arm fx repair with hardware,breast cancer surgery,left rotator cuff, port placed,left arm tanvir placed,c-sections times 2 - Social History Smoking Status: Never smoker Exposure to second hand smoke: No Drug Use: none Patient Lives Alone: No - Nursing Vital Signs Nursing Vital Signs: Initial Vital Signs Temperature 98.1 F 12/07/22 10:21 Pulse Rate 74 12/07/22 10:21 Respiratory Rate 18 12/07/22 10:21 Blood Pressure 183/113 12/07/22 10:21 O2 Sat by Pulse Oximetry 97 12/07/22 10:21 Pain Scale Pain Intensity 0 - Physical Exam General Appearance: no apparent distress, alert, anxiety Eye Exam: PERRL/EOMI, eyes nml inspection Ears, Nose, Throat Exam: dry mucous membranes Neck Exam: normal inspection, non-tender, supple, full range of motion Respiratory Exam: normal breath sounds, lungs clear, airway intact, No chest tenderness, No respiratory distress Cardiovascular Exam: regular rate/rhythm, normal heart sounds, normal peripheral pulses Gastrointestinal/Abdomen Exam: soft, normal bowel sounds, No tenderness Pelvic Exam: not done Rectal Exam: not done Back Exam: normal inspection, normal range of motion, No CVA tenderness, No vertebral tenderness Extremity Exam: normal inspection, normal range of motion, pelvis stable Neurologic Exam: alert, oriented x 3, cooperative, security inspector II-XII nml as tested, normal mood/affect, nml cerebellar function, nml station & gait, sensation nml Skin Exam: normal color, warm, dry Lymphatic Exam: No adenopathy SpO2 Interpretation: normal O2 Delivery: Room Air - Course Nursing assessment & vital signs reviewed: Yes Ordered Tests: Active Orders 24 hr Category Date Time Status Clerk STAT Care 12/07/22 10:27 Active IV Insertion STAT Care 12/07/22 10:27 Active Nursing [Miscellaneous Nursing Order] ROUTINE Care 12/07/22 14:51 Ordered Pulse Oximetry (ED) STAT Care 12/07/22 10:27 Active Telemetry q4h Care 12/07/22 11:49 Active BMP Stat Lab 12/07/22 14:17 Completed CBC W DIFF Stat Lab 12/07/22 10:29 Completed CMP Stat Lab 12/07/22 10:29 Completed CULTURE,URINE Stat Lab 12/07/22 10:29 Received Lactic Acid Urgent Lab 12/07/22 10:29 Completed MAGNESIUM Stat Lab 12/07/22 10:29 Completed POCT GLUCOSE Stat Lab 12/07/22 10:19 Completed POCT GLUCOSE Stat Lab 12/07/22 14:03 Completed UA W/RFX UR CULTURE Stat Lab 12/07/22 10:29 Completed Transfer Order Routine Transfer 12/07/22 Ordered Medication Summary Generic Name Dose Route Start Last Admin Trade Name Alea PRN Reason Stop Dose Admin Sodium Chloride 1,000 mls @ 50 mls/hr 12/07/22 12:00 12/07/22 11:57 Sodium Chloride 0.9% 1000 Ml IV 01/06/23 11:59 50 mls/hr .Q20H CLARISSA Administration Discontinued Medications Generic Name Dose Route Start Last Admin Trade Name Alea PRN Reason Stop Dose Admin Sodium Chloride 1,000 mls @ 999 mls/hr 12/07/22 10:27 12/07/22 11:44 Sodium Chloride 0.9% 1000 Ml IV 12/07/22 11:27 Infused .Q1H1M STA Infusion Sodium Chloride Confirm 12/07/22 10:36 Sodium Chloride 0.9% 1000 Ml Administered 12/07/22 10:37 Dose 1,000 mls @ ud .ROUTE .STK-MED ONE Potassium Chloride 20 meq in 100 mls @ 50 mls/hr 12/07/22 11:49 12/07/22 11:56 Potassium Chloride 20 Meq In Water 100ml IV 12/07/22 13:48 50 mls/hr STAT ONE Administration Potassium Chloride Confirm 12/07/22 11:54 Potassium Chloride 20 Meq In Water 100ml Administered 12/07/22 11:55 Dose 100 mls @ ud IV .STK-MED ONE Insulin Human Regular 15 unit 12/07/22 11:48 12/07/22 11:55 Insulin Regular, Human 1 Unit IV 12/07/22 11:49 15 unit STAT ONE Administration Insulin Human Regular Confirm 12/07/22 11:54 Insulin Regular, Human 1 Unit Administered 12/07/22 11:55 Dose 15 unit .ROUTE .STK-MED ONE Lab/Rad Data: Laboratory Result Diagrams 12/07/22 10:29 12/07/22 14:17 Laboratory Results 12/07/22 12/07/22 12/07/22 Range/Units 14:17 14:03 10:29 WBC (4.0-10.5) x10^3/uL RBC (4.1-5.4) x10^6/uL Hgb (12.0-16.0) g/dL Hct (35-47) % MCV (78-100) fL MCH (26-32) pg MCHC (32-36) g/dL RDW (11.5-14.0) % Plt Count (150-450) x10^3/uL MPV (7.5-11.0) fL Gran % (36.0-66.0) % Immature Gran % (Auto) (0.00-0.4) % Nucleat RBC Rel Count (0.00-0.1) % Eos # (Auto) (0-0.5) x10^3/uL Immature Gran # (Auto) (0.00-0.03) x10^3u/L Absolute Lymphs (auto) (1.0-4.6) x10^3/uL Absolute Monos (auto) (0.0-1.3) x10^3/uL Absolute Nucleated RBC (0.00-0.01) x10^3u/L Lymphocytes % (24.0-44.0) % Monocytes % (0.0-12.0) % Eosinophils % (0.00-5.0) % Basophils % (0.0-0.4) % Absolute Granulocytes (1.4-6.9) x10^3/uL Basophils # (0-0.4) x10^3/uL Sodium 138 (137-145) mmol/L Potassium 2.6 L* (3.5-5.1) mmol/L Chloride 98 (98-107) mmol/L Carbon Dioxide 32 H (22-30) mmol/L Anion Gap 10.4 (5-15) MEQ/L BUN 21 H (7-17) mg/dL Creatinine 1.38 H (0.52-1.04) mg/dL Estimated GFR 39.8 ML/MIN Glucose 205 H (74-106) mg/dL POC Glucometer 212 H (50 to 500) mg/dL Lactic Acid (0.4-2.0) Calcium 8.7 (8.4-10.2) mg/dL Magnesium (1.6-2.3) mg/dL Total Bilirubin (0.2-1.3) mg/dL AST (14-36) U/L ALT (0-35) U/L Alkaline Phosphatase (38-126) U/L Serum Total Protein (6.3-8.2) g/dL Albumin (3.5-5.0) g/dL Urine Color (Yellow) Urine Appearance (Clear) Urine pH (4.6-8.0) Ur Specific [place] (1.005-1.030) Urine Protein (Negative) Urine Glucose (UA) (Negative) mg/dL Urine Ketones (Negative) Urine Blood (Negative) Urine Nitrite (Negative) Urine Bilirubin (Negative) Urine Urobilinogen (0.2) mg/dL Ur Leukocyte Esterase (Negative) U Hyaline Cast (Auto) (0-2) /LPF Urine Microscopic RBC (0-5) /HPF Urine Microscopic WBC (0-5) /HPF Ur Epithelial Cells (None Seen) /HPF Urine Bacteria (None Seen) /HPF Urine Culture Reflexed (NO) Influenza Type A Ag NEGATIVE (NEGATIVE) Influenza Type B Ag NEGATIVE (NEGATIVE) RSV (PCR) NEGATIVE (NEGATIVE) SARS-CoV-2 (PCR) NEGATIVE (NEGATIVE) 12/07/22 12/07/22 12/07/22 Range/Units 10:29 10:29 10:29 WBC 3.9 L (4.0-10.5) x10^3/uL RBC 4.28 (4.1-5.4) x10^6/uL Hgb 11.6 L (12.0-16.0) g/dL Hct 35.9 (35-47) % MCV 83.9 (78-100) fL MCH 27.1 (26-32) pg MCHC 32.3 (32-36) g/dL RDW 12.4 (11.5-14.0) % Plt Count 109 L (150-450) x10^3/uL MPV 12.0 H (7.5-11.0) fL Gran % 70.6 H (36.0-66.0) % Immature Gran % (Auto) 0.3 (0.00-0.4) % Nucleat RBC Rel Count 0.0 (0.00-0.1) % Eos # (Auto) 0.04 (0-0.5) x10^3/uL Immature Gran # (Auto) 0.01 (0.00-0.03) x10^3u/L Absolute Lymphs (auto) 0.66 L (1.0-4.6) x10^3/uL Absolute Monos (auto) 0.40 (0.0-1.3) x10^3/uL Absolute Nucleated RBC 0.00 (0.00-0.01) x10^3u/L Lymphocytes % 17.0 L (24.0-44.0) % Monocytes % 10.3 (0.0-12.0) % Eosinophils % 1.0 (0.00-5.0) % Basophils % 0.8 (0.0-0.4) % Absolute Granulocytes 2.75 (1.4-6.9) x10^3/uL Basophils # 0.03 (0-0.4) x10^3/uL Sodium 132 L (137-145) mmol/L Potassium 3.0 L* (3.5-5.1) mmol/L Chloride 91 L (98-107) mmol/L Carbon Dioxide 31 H (22-30) mmol/L Anion Gap 12.8 (5-15) MEQ/L BUN 23 H (7-17) mg/dL Creatinine 1.38 H (0.52-1.04) mg/dL Estimated GFR 39.8 ML/MIN Glucose 606 H* (74-106) mg/dL POC Glucometer (50 to 500) mg/dL Lactic Acid 1.4 (0.4-2.0) Calcium 9.1 (8.4-10.2) mg/dL Magnesium 1.6 (1.6-2.3) mg/dL Total Bilirubin 0.70 (0.2-1.3) mg/dL AST 28 (14-36) U/L ALT 21 (0-35) U/L Alkaline Phosphatase 99 (38-126) U/L Serum Total Protein 6.9 (6.3-8.2) g/dL Albumin 3.9 (3.5-5.0) g/dL Urine Color (Yellow) Urine Appearance (Clear) Urine pH (4.6-8.0) Ur Specific [place] (1.005-1.030) Urine Protein (Negative) Urine Glucose (UA) (Negative) mg/dL Urine Ketones (Negative) Urine Blood (Negative) Urine Nitrite (Negative) Urine Bilirubin (Negative) Urine Urobilinogen (0.2) mg/dL Ur Leukocyte Esterase (Negative) U Hyaline Cast (Auto) (0-2) /LPF Urine Microscopic RBC (0-5) /HPF Urine Microscopic WBC (0-5) /HPF Ur Epithelial Cells (None Seen) /HPF Urine Bacteria (None Seen) /HPF Urine Culture Reflexed (NO) Influenza Type A Ag (NEGATIVE) Influenza Type B Ag (NEGATIVE) RSV (PCR) (NEGATIVE) SARS-CoV-2 (PCR) (NEGATIVE) 12/07/22 12/07/22 Range/Units 10:29 10:19 WBC (4.0-10.5) x10^3/uL RBC (4.1-5.4) x10^6/uL Hgb (12.0-16.0) g/dL Hct (35-47) % MCV (78-100) fL MCH (26-32) pg MCHC (32-36) g/dL RDW (11.5-14.0) % Plt Count (150-450) x10^3/uL MPV (7.5-11.0) fL Gran % (36.0-66.0) % Immature Gran % (Auto) (0.00-0.4) % Nucleat RBC Rel Count (0.00-0.1) % Eos # (Auto) (0-0.5) x10^3/uL Immature Gran # (Auto) (0.00-0.03) x10^3u/L Absolute Lymphs (auto) (1.0-4.6) x10^3/uL Absolute Monos (auto) (0.0-1.3) x10^3/uL Absolute Nucleated RBC (0.00-0.01) x10^3u/L Lymphocytes % (24.0-44.0) % Monocytes % (0.0-12.0) % Eosinophils % (0.00-5.0) % Basophils % (0.0-0.4) % Absolute Granulocytes (1.4-6.9) x10^3/uL Basophils # (0-0.4) x10^3/uL Sodium (137-145) mmol/L Potassium (3.5-5.1) mmol/L Chloride (98-107) mmol/L Carbon Dioxide (22-30) mmol/L Anion Gap (5-15) MEQ/L BUN (7-17) mg/dL Creatinine (0.52-1.04) mg/dL Estimated GFR ML/MIN Glucose (74-106) mg/dL POC Glucometer 563 H* (50 to 500) mg/dL Lactic Acid (0.4-2.0) Calcium (8.4-10.2) mg/dL Magnesium (1.6-2.3) mg/dL Total Bilirubin (0.2-1.3) mg/dL AST (14-36) U/L ALT (0-35) U/L Alkaline Phosphatase (38-126) U/L Serum Total Protein (6.3-8.2) g/dL Albumin (3.5-5.0) g/dL Urine Color Yellow (Yellow) Urine Appearance Clear (Clear) Urine pH 6.5 (4.6-8.0) Ur Specific [place] 1.025 (1.005-1.030) Urine Protein 100 A (Negative) Urine Glucose (UA) >=1000 A (Negative) mg/dL Urine Ketones Negative (Negative) Urine Blood Small A (Negative) Urine Nitrite Negative (Negative) Urine Bilirubin Negative (Negative) Urine Urobilinogen 0.2 (0.2) mg/dL Ur Leukocyte Esterase Negative (Negative) U Hyaline Cast (Auto) NONE SEEN (0-2) /LPF Urine Microscopic RBC 0-2 (0-5) /HPF Urine Microscopic WBC 6-10 A (0-5) /HPF Ur Epithelial Cells None Seen (None Seen) /HPF Urine Bacteria None Seen (None Seen) /HPF Urine Culture Reflexed YES (NO) Influenza Type A Ag (NEGATIVE) Influenza Type B Ag (NEGATIVE) RSV (PCR) (NEGATIVE) SARS-CoV-2 (PCR) (NEGATIVE) - Progress Progress: improved Progress Note: 12/07/22 14:27 Patient states that she thinks she is feeling better. She denies chest pain. She denies any pain. She denies nausea or vomiting. The patient's medical issue is 1 of high complexity. The level of complexity and the work-up performed is based on review of the patient's past medical history, medication list, drug allergy list, history of present illness and physical findings on examination. The work-up included placement of intravenous line, infusion of normal saline solution, obtaining a urinalysis, CBC, CMP, magnesium. I reviewed the results of the work-up and based on the results I provided the patient with 15 units intravenous regular insulin and 1K rider of 20 mEq potassium chloride. Patient's blood sugar level is now 212. The repeat BMP is pending. Patient does not appear to be in DKA. She has a normal anion gap. She does not have ketones in her urine. Her first repeat potassium was 3.0 as compared to 2.7 that was drawn yesterday. Again, we are awaiting the results of the BMP. The patient appears to have hyperglycemia and hypokalemia. If we had sufficiently corrected her blood sugar level and potassium level, the plan was to discharge the patient to home. However, the BMP that was pending shows a potassium now of 2.6. Patient will need to be admitted into the hospital. 12/07/22 14:38 12/07/22 14:[address] Rosenberg who is covering as hospitalist today. I reviewed the patient's history, physical findings, work-up performed and the results of that work-up. I also discussed with him the interventions that I ordered and the results of those interventions. Together, we decided that the patient would be admitted into the hospital for treatment of hyperglycemia and hypokalemia. Discussed with : Nelida Counseled pt/family regarding: lab results, diagnosis, need for follow-up Medical Desision Making - Discussion of managment Reviewed:: Test results, Need for additional workup Agreed on:: Treatment plan, decision to admit Will see patient: in hospital - Diagnostic Testing Diagnostic test were ordered, analyzed, and reviewed by me: Yes - Risk of complications The pt has a high risk of morbidity or mortality based on: Decision regarding hospitilization or escalation of hosp level of care - Departure Departure Disposition: In-patient Admission Clinical Impression: Hyperglycemia, Hypokalemia Condition: Stable Critical Care Time: No Referrals: SAMAN CRUZ [Primary Care Provider] - Follow up/PCP as directed
[2022-12-07] MEDS ORDERED: Sodium Chloride 0.9% 1000 ML 1,000 ML IV STA (10:27)
[2022-12-07] MEDS ORDERED: Sodium Chloride 0.9% 1000 ML 1,000 ML ONE ×2 (10:36→11:54)
[2022-12-07 10:45] LABS: Absolute Neutrophil Ct (ANC) 2.75 x10^3/uL (1.4-6.9); BASOPHIL % 0.8 % (0.0-0.4); Basophil (Absolute #) 0.03 x10^3/uL (0-0.4); Eosinophil (Absolute #) 0.04 x10^3/uL (0-0.5); Hematocrit 35.9 % (35-47); Hemoglobin 11.6 g/dL (12.0-16.0); IMMATURE GRAN # 0.01 x10^3u/L (0.00-0.03); IMMATURE GRAN % 0.3 % (0.00-0.4); Lymphocyte (Absolute #) 0.66 x10^3/uL (1.0-4.6); Mean Cell Volume 83.9 fL (78-100); Mean Corpuscular Hemoglobin 27.1 pg (26-32); Mean Corpuscular Hgb Concent. 32.3 g/dL (32-36); Monocytes % 10.3 % (0.0-12.0); Neutrophil % 70.6 % (36.0-66.0); Platelet Count 109 x10^3/uL (150-450); Red Blood Count 4.28 x10^6/uL (4.1-5.4); Red Cell Distribution Width 12.4 % (11.5-14.0); White Blood Count 3.9 x10^3/uL (4.0-10.5)
[2022-12-07 10:59] LABS: Appearance Clear (Clear); Bacteria None Seen /HPF (None Seen); Bilirubin Negative (Negative); Blood Small (Negative); Epithelial Cells None Seen /HPF (None Seen); Glucose, Urine >=1000 mg/dL (Negative); Hyaline Casts NONE SEEN /LPF (0-2); Ketones Negative (Negative); Leukocyte Esterase Negative (Negative); Nitrite Negative (Negative); Ph 6.5 (4.6-8.0); Protein,Urine Dip 100 (Negative); RBC 0-2 /HPF (0-5); Specific Gravity 1.025 (1.005-1.030); Urobilinogen 0.2 mg/dL (0.2)
[2022-12-07 11:00] LABS: ADD URINE CULTURE? YES (NO)
[2022-12-07 11:31] LABS: INFLUENZA A NEGATIVE (NEGATIVE); INFLUENZA B NEGATIVE (NEGATIVE); RESPIRATORY SYNCTIAL VIRUS NEGATIVE (NEGATIVE); SARS-CoV-2 Xpert Express NEGATIVE (NEGATIVE)
[2022-12-07 11:38] LABS: ALBUMIN 3.9 g/dL (3.5-5.0); ANION GAP 12.8 MEQ/L (5-15); BILIRUBIN,TOTAL 0.7 mg/dL (0.2-1.3); Calcium 9.1 mg/dL (8.4-10.2); Creatinine 1 1.38 mg/dL (0.52-1.04); EST GLOMERULAR FILTRATION RATE 39.8 ML/MIN; MAGNESIUM 1.6 mg/dL (1.6-2.3); Total Protein 6.9 g/dL (6.3-8.2)
[2022-12-07] MEDS ORDERED: HUMULIN R IV ONE (11:48)
[2022-12-07] MEDS ORDERED: POTASSIUM CHLORIDE 20 mEq IN WATER 100ML 20 MEQ/100 ML BAG IV ONE (11:49)
[2022-12-07] MEDS ORDERED: POTASSIUM CHLORIDE 20 mEq IN WATER 100ML 100 ML IV ONE (11:54)
[2022-12-07] MEDS ORDERED: HUMULIN R ONE (11:54)
[2022-12-07] MEDS ORDERED: Sodium Chloride 0.9% 1000 ML 1,000 ML IV SCH ×2 (12:00→16:21)
[2022-12-07 14:32] LABS: ANION GAP 10.4 MEQ/L (5-15); Calcium 8.7 mg/dL (8.4-10.2); Creatinine 1 1.38 mg/dL (0.52-1.04); EST GLOMERULAR FILTRATION RATE 39.8 ML/MIN
[2022-12-07 14:36] LABS: Potassium 2.6 mmol/L (3.5-5.1)
[2022-12-07] MEDS ORDERED: TYLENOL 325 MG PO PRN (16:21)
[2022-12-07] MEDS ORDERED: PROTONIX 40 MG IV IV SCH (16:21)
[2022-12-07] MEDS ORDERED: Zofran 4 MG/2 ML VIAL IV ONE (16:21)
[2022-12-07] MEDS ORDERED: MAGNESIUM SULF 2 G/50 ML BAG 2 GM/50 ML PIGGYBACK IV ONE (16:25)
[2022-12-07] MEDS: Klor Con PO SCH ×4 (16:46→22:18)
[2022-12-07] MEDS: POTASSIUM CHLORIDE 20 mEq IN WATER 100ML 100 ML IV SCH ×2 (18:23→19:57)
[2022-12-07] MEDS: NEURONTIN PO SCH (22:18)
[2022-12-07] MEDS: Glucotrol 5 MG PO SCH (22:18)
[2022-12-07] MEDS: HUMULIN R SQ PRN (22:19)
[2022-12-07] MEDS: Lantus Insulin SQ SCH (22:19)
[2022-12-08 05:42] LABS: ALBUMIN 2.9 g/dL (3.5-5.0); ANION GAP 8.4 MEQ/L (5-15); BILIRUBIN,TOTAL 0.3 mg/dL (0.2-1.3); Calcium 8.6 mg/dL (8.4-10.2); Creatinine 1 1.35 mg/dL (0.52-1.04); EST GLOMERULAR FILTRATION RATE 40.9 ML/MIN; Potassium 3.5 mmol/L (3.5-5.1); Total Protein 5.4 g/dL (6.3-8.2)
[2022-12-08 06:38] LABS: Absolute Neutrophil Ct (ANC) 1.67 x10^3/uL (1.4-6.9); BASOPHIL % 0.9 % (0.0-0.4); Basophil (Absolute #) 0.03 x10^3/uL (0-0.4); Eosinophil % 2.2 % (0.00-5.0); Eosinophil (Absolute #) 0.07 x10^3/uL (0-0.5); Hemoglobin 9.8 g/dL (12.0-16.0); Lymphocyte (Absolute #) 1.12 x10^3/uL (1.0-4.6); Lymphocytes % 35.1 % (24.0-44.0); Mean Cell Volume 84.7 fL (78-100); Mean Corpuscular Hemoglobin 26.8 pg (26-32); Mean Corpuscular Hgb Concent. 31.6 g/dL (32-36); Monocytes % 9.4 % (0.0-12.0); Neutrophil % 52.4 % (36.0-66.0); Platelet Count 92 x10^3/uL (150-450); Red Blood Count 3.66 x10^6/uL (4.1-5.4); Red Cell Distribution Width 12.4 % (11.5-14.0); White Blood Count 3.2 x10^3/uL (4.0-10.5)
[2022-12-08] MEDS ORDERED: Cyanocobalamin B-12 1000 MCG/ML IM SCH (07:30)
[2022-12-08] MEDS ORDERED: MEDICATION INTERVENTION MC SCH (07:45)
[2022-12-08 08:24] LABS: Slide Review 1 YES
[2022-12-08] MEDS: Glucotrol 5 MG PO SCH ×2 (08:34→17:27)
[2022-12-08] MEDS: NEURONTIN PO SCH ×3 (08:34→21:27)
[2022-12-08] MEDS: CLARITIN 10 MG PO SCH (08:34)
[2022-12-08] MEDS: FOLATE 1 MG PO SCH (08:34)
[2022-12-08] MEDS: Zetia 10 MG PO SCH (08:35)
[2022-12-08] MEDS: ACEBUTOLOL HCL PO SCH (08:35)
[2022-12-08] MEDS: VITAMIN D PO SCH (08:35)
[2022-12-08] MEDS: Protonix 40MG Tablet PO SCH (08:35)
[2022-12-08] MEDS: Glucophage 500 MG PO SCH ×2 (08:35→17:27)
[2022-12-08] MEDS ORDERED: CHOLECALCIFEROL 400 UNIT PO SCH (10:00)
[2022-12-08] MEDS ORDERED: NON-FORMULARY ITEM (Anastrozole [Arimidex] 1 MG Tablet) PO SCH (10:00)
[2022-12-08] MEDS ORDERED: NON-FORMULARY ITEM (Omeprazole [Omeprazole] 20 MG Tablet.Dr) PO SCH (10:00)
[2022-12-08] MEDS: Klor Con PO SCH (11:29)
[2022-12-08] MEDS: HUMULIN R SQ PRN ×2 (17:27→21:27)
[2022-12-08] MEDS: Lantus Insulin SQ SCH (18:41)
[2022-12-09 05:40] LABS: Absolute Neutrophil Ct (ANC) 1.76 x10^3/uL (1.4-6.9); BASOPHIL % 1.2 % (0.0-0.4); Basophil (Absolute #) 0.04 x10^3/uL (0-0.4); Eosinophil % 2.4 % (0.00-5.0); Eosinophil (Absolute #) 0.08 x10^3/uL (0-0.5); Hematocrit 32.6 % (35-47); Hemoglobin 10.2 g/dL (12.0-16.0); Lymphocyte (Absolute #) 1.07 x10^3/uL (1.0-4.6); Lymphocytes % 32.2 % (24.0-44.0); Mean Cell Volume 86.7 fL (78-100); Mean Corpuscular Hemoglobin 27.1 pg (26-32); Mean Corpuscular Hgb Concent. 31.3 g/dL (32-36); Mean Platelet Volume 12.1 fL (7.5-11.0); Monocyte (Absolute #) 0.37 x10^3/uL (0.0-1.3); Monocytes % 11.1 % (0.0-12.0); Neutrophil % 53.1 % (36.0-66.0); Platelet Count 90 x10^3/uL (150-450); Red Blood Count 3.76 x10^6/uL (4.1-5.4); Red Cell Distribution Width 12.7 % (11.5-14.0); White Blood Count 3.3 x10^3/uL (4.0-10.5)
[2022-12-09 05:56] LABS: ANION GAP 9.7 MEQ/L (5-15); Calcium 8.7 mg/dL (8.4-10.2); Creatinine 1 1.46 mg/dL (0.52-1.04); EST GLOMERULAR FILTRATION RATE 37.3 ML/MIN; Potassium 3.2 mmol/L (3.5-5.1)
[2022-12-09 08:11] LABS: Slide Review 1 YES
[2022-12-09] MEDS: Glucophage 500 MG PO SCH (10:20)
[2022-12-09] MEDS: Glucotrol 5 MG PO SCH (10:20)
[2022-12-09] MEDS: Protonix 40MG Tablet PO SCH (10:33)
[2022-12-09] MEDS: VITAMIN D PO SCH (10:33)
[2022-12-09] MEDS: Klor Con PO SCH (10:34)
[2022-12-09] MEDS: FOLATE 1 MG PO SCH (10:34)
[2022-12-09] MEDS: ACEBUTOLOL HCL PO SCH (10:34)
[2022-12-09] MEDS: CLARITIN 10 MG PO SCH (10:34)
[2022-12-09] MEDS: Zetia 10 MG PO SCH (10:34)
[2022-12-09] MEDS: NEURONTIN PO SCH (10:34)
[2022-12-09] MEDS ORDERED: Klor Con PO ONE (10:49)
[2022-12-09 11:43] VITALS: BP 161/72; PULSE 62; O2SAT 97
[2022-12-09] MEDS ORDERED: Levofloxacin 500MG/100ML D5W 500 MG/100 ML BAG IV ONE (12:11)
[2022-12-09] MEDS: HUMULIN R SQ PRN (12:44)
[2022-12-10] MEDS ORDERED: Klor Con PO SCH (11:00)
--- NOTE | 2022-12-24 00:12 | PCM.SSS ---
History of Present Illness - Chief Complaint Chief Complaint: HYPOKALEMIA Date: 12/09/22 History of Present Illness: is a 72 year old female is a diabetic 72-year-old white female patient of Dr. Cruz who was seen by him on 12/06/2022 and labs were obtained. Patient was called at home today and told to come to the emergency department because her blood sugar was 549 and she had a potassium level of 2.7. Patient states that she does not feel any worse today. However, yesterday's appointment was not scheduled 1 as her routine but she scheduled an appointment because she was not feeling really well but nothing specific. Patient denies shortness of breath. Patient denies chest pain. She has no abdominal pain. She has had no nausea vomiting or diarrhea. Patient has a history of gastroesophageal reflux disease, hypertension, hyperlipidemia, rheumatoid arthritis, renal disease. - Review of Systems Constitutional: Fatigue, No Fever, No Chills Eyes: No Symptoms Ears, Nose, & Throat: No Symptoms Respiratory: No Cough, No Short Of Breath Cardiac: No Chest Pain, No Edema, No Syncope Abdominal/Gastrointestinal: No Abdominal Pain, No Nausea, No Vomiting, No Diarrhea Genitourinary Symptoms: No Dysuria Musculoskeletal: No Back Pain, No Neck Pain Skin: No Rash Neurological: No Dizziness, No Focal Weakness, No Sensory Changes Psychological: No Symptoms Endocrine: No Symptoms Hematologic/Lymphatic: No Symptoms Immunological/Allergic: No Symptoms Medications & Allergies Home Medications: Home Medication List Cholecalciferol (Vitamin D3) [Vitamin D3] 1,000 unit PO DAILY 12/17/18 [History Confirmed 12/07/22] Ezetimibe 10 mg [Zetia 10 MG] 10 mg PO DAILY 12/17/18 [History Confirmed 12/07/22] Loratadine 10 mg [Claritin 10 mg] 10 mg PO DAILY 12/17/18 [History Confirmed 12/07/22] Acebutolol 200 mg [Sectral 200 MG] 200 mg PO DAILY 12/23/18 [History Confirmed 12/07/22] Gabapentin [Neurontin] 300 mg PO TID 12/23/18 [History Confirmed 12/07/22] Omeprazole 20 mg PO DAILY 12/23/18 [History Confirmed 12/07/22] Anastrozole [Arimidex] 1 mg PO DAILY 04/27/21 [History Confirmed 12/07/22] Folic Acid 1 mg [Folate 1 mg] 1 mg PO DAILY 04/27/21 [History Confirmed 12/07/22] Insulin Lispro [Humalog] 100 unit SQ QIDPRN PRN 04/27/21 [History Confirmed 12/07/22] Metformin HCl 500 mg [Glucophage 500 MG] 500 mg PO BIDWM 07/12/22 [History Confirmed 12/07/22] Cyanocobalamin 1000 Mcg/ml [Cyanocobalamin B-12 1000 MCG/ML] 1,000 mcg IM UD 12/07/22 [History Confirmed 12/07/22] Glipizide 5 mg [Glucotrol 5 MG] 5 mg PO BID 12/07/22 [History Confirmed 12/07/22] Insulin Glargine [Lantus Insulin] 20 unit SQ EVENING MEAL 12/07/22 [History Confirmed 12/07/22] Levofloxacin [Levofloxacin 500 MG Tablet] 500 mg PO DAILY 10 Days #10 tablet 12/09/22 [Rx] Potassium Chloride 40 meq PO DAILY 30 Days #30 tablet 12/09/22 [Rx] Allergies/Adverse Reactions: Allergies Allergy/AdvReac Type Severity Reaction Status Date / Time diphenhydramine HCl AdvReac Mild "itchy & Verified 12/07/22 17:22 [From Benadryl] red face" - Past Medical History Past Medical History: Yes Neurological History: No Pertinent History ENT History: Cataracts Cardiac History: High Cholesterol, Hypertension Respiratory History: No Pertinent History Endocrine Medical History: Diabetes Type II Musculoskelatal History: Rheumatoid Arthritis, Other GI Medical History: GERD History: Renal Disease, Other Pyscho-Social History: No Pertinent History Reproductive Disorders: Breast Cancer Comment: 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, psoriatic arthritis - Past Surgical History Past Surgical History: Yes Neuro Surgical History: No Pertinent History Cardiac History: No Pertinent History Respiratory Surgery: No Pertinent History GI Surgical History: No Pertinent History Genitourinary Surgical Hx: No Pertinent History Musculskeletal Surgical Hx: Orthopedic Surgery Female Surgical History: Section, Tubal Ligation Other Surgical History: left arm fx repair with hardware,breast cancer surgery,left rotator cuff, port placement and removal, left arm tanvir placed,c- sections times 2 - Social History Smoking Status: Never smoker Exposure to second hand smoke: No Alcohol: None Drug Use: none - Physical Exam General Appearance: no apparent distress, alert Neurologic Exam: alert, oriented x 3, cooperative, normal mood/affect, nml cerebellar function, nml station & gait, sensation nml, No motor deficits Eye Exam: PERRL/EOMI, eyes nml inspection Ears, Nose, Throat Exam: normal ENT inspection, TMs normal, pharynx normal, moist mucous membranes Neck Exam: normal inspection, non-tender, supple, full range of motion Respiratory Exam: normal breath sounds, lungs clear, No respiratory distress Cardiovascular Exam: regular rate/rhythm, normal heart sounds, normal peripheral pulses Gastrointestinal/Abdomen Exam: soft, normal bowel sounds, No tenderness, No mass Back Exam: normal inspection, normal range of motion, No CVA tenderness, No vertebral tenderness Extremity Exam: normal inspection, normal range of motion, pelvis stable Skin Exam: normal color, warm, dry, No rash Lymphatic Exam: No adenopathy Results - Labs Lab/Micro Results: Microbiology 12/07/22 10:29 Urine Culture - Final Clean Catch Midstream Pseudomonas Aeruginosa Assessment/Plan (1) Hyperglycemia Status: Acute Code(s): R73.9 - HYPERGLYCEMIA, UNSPECIFIED (2) Hypokalemia Status: Acute Code(s): E87.6 - HYPOKALEMIA Hospital Summary - Hospital Course Hospital Course: Pt. admitted, potassium was replaced and blood sugar control was achieved, pt. family noted that the checks at home were normal. Pt. now suspects that her machine is not working properly, after potassium was replaced, pt. notes her fatigue was much improved, medications adjusted and pt. maintained stabilty and therefore felt to be ready for discharge to home. - Vitals & Intake/Output Vital Signs: Vital Signs Temperature 97.2 F 12/09/22 11:42 Pulse Rate 62 12/09/22 11:42 Respiratory Rate 15 12/09/22 12:00 Blood Pressure 161/72 12/09/22 11:42 O2 Sat by Pulse Oximetry 97 12/09/22 11:42 - Lab Result Diagrams: 12/09/22 05:38 12/09/22 05:38 Micro Results-Entire Visit: Microbiology 03/24/23 10:29 Urine Culture - Final Clean Catch Midstream Pseudomonas Aeruginosa - Discharge Discharge Date: 12/09/22 Disposition: Home, Self-Care Condition: Stable Prescriptions: New Potassium Chloride 40 meq PO DAILY 30 Days #30 tablet Levofloxacin [Levofloxacin 500 MG Tablet] 500 mg PO DAILY 10 Days #10 tablet No Action Loratadine 10 mg [Claritin 10 mg] 10 mg PO DAILY Cholecalciferol (Vitamin D3) [Vitamin D3] 1,000 unit PO DAILY Ezetimibe 10 mg [Zetia 10 MG] 10 mg PO DAILY Gabapentin [Neurontin] 300 mg PO TID Acebutolol 200 mg [Sectral 200 MG] 200 mg PO DAILY Omeprazole 20 mg PO DAILY Insulin Lispro [Humalog] 100 unit SQ QIDPRN PRN PRN Reason: sliding scale Anastrozole [Arimidex] 1 mg PO DAILY Folic Acid 1 mg [Folate 1 mg] 1 mg PO DAILY Metformin HCl 500 mg [Glucophage 500 MG] 500 mg PO BIDWM Glipizide 5 mg [Glucotrol 5 MG] 5 mg PO BID Insulin Glargine [Lantus Insulin] 20 unit SQ EVENING MEAL Cyanocobalamin 1000 Mcg/ml [Cyanocobalamin B-12 1000 MCG/ML] 1,000 mcg IM UD Outpatient Orders: BMP Time Frame: 1 Day, Facility: [facility], Location: LAB ORATORY BMP Time Frame: 3 Days, Facility: [facility], Location: LABORATORY Instructions: Hypokalemia (DC), High Potassium Diet Additional Instructions: CALL FOR FOLLOW UP APPOINTMENT WITH DR CRUZ, WE ARE UNABLE TO MAKE THE APPOIN TMENT TODAY. NEW MEDICATIONS CAN START TOMORROW LABS TO BE DRAWN TOMORROW (12/10), AND SATURDAY (12/12) Follow up with: SAMAN CRUZ [Primary Care Provider] - 1 Week
== END 2022-12-09 14:50 | disposition home or self-care (01) | DRG 638 ==
LOC: ED 09:59 → MED SURG 16:10
PROVIDERS: ADMIT Family Medicine; ATTEND Family Medicine
DX: E11.65 Type 2 diabetes mellitus with hyperglycemia (principal); N18.4 Chronic kidney disease, stage 4 (severe); E87.6 Hypokalemia; E11.22 Type 2 diabetes mellitus with diabetic chronic kidney disease; I12.9 Hypertensive chronic kidney disease with stage 1 through stage 4 chronic kidney disease, or unspecified chronic kidney disease; E78.5 Hyperlipidemia, unspecified; Z85.3 Personal history of malignant neoplasm of breast; Z79.899 Other long term (current) drug therapy; Z20.828 Contact with and (suspected) exposure to other viral communicable diseases
CPT/HCPCS: 0241U; 36000; 36415; 80048; 80053; 81001; 82306; 82607; 82947; 83036; 83605; 83735; 84132; 84439; 84443; 85025; 87077; 87086; 87186; 93005; 93041; 94760; 96360; 96361; 96365; 96366; 96374; 99285; J1815; J1956; J3480; A9270-GY; J3475

== ENCOUNTER 2023-07-28 19:57 | Observation (INO) | payer MEDICARE ==
--- NOTE | 2023-07-28 20:23 | ERPHSYRPT ---
- History of Present Illness Time Seen by Provider: 07/28/23 20:09 Source: patient, family (son) Exam Limitations: no limitations Physician History: Pt's son states about 1 hour ago pt had slurred speech and left sided facial drooping. Pt states she has had generalized weakness for the past hour; denies chest pain, headache, fever, shortness of air, tingling, numbness, nausea, vomiting. Allergies/Adverse Reactions: diphenhydramine HCl [From Benadryl] Adverse Reaction (Mild, Verified 07/28/23 20:37) "itchy & red face" Home Medications: Cholecalciferol (Vitamin D3) [Vitamin D3] 1,000 unit PO DAILY 12/17/18 [History] Loratadine 10 mg [Claritin 10 mg] 10 mg PO DAILY 12/17/18 [History] Omeprazole 20 mg PO DAILY 12/23/18 [History] Folic Acid 1 mg [Folate 1 mg] 1 mg PO DAILY 04/27/21 [History] Insulin Lispro [Humalog] 100 unit SQ QIDPRN PRN 04/27/21 [History] Metformin HCl 500 mg [Glucophage 500 MG] 500 mg PO BIDWM 07/12/22 [History] Potassium Chloride 20 meq PO BID 07/28/23 [History] Hx Tetanus, Diphtheria Vaccination/Date Given: Yes Hx Influenza Vaccination/Date Given: Yes Hx Pneumococcal Vaccination/Date Given: Yes Travel Risk - Vaccine Status Have you recieved a Covid-19 vaccination: Yes Division Supervisor: Unknown - Vaccination Dates Dates if Unknown: unknown - Review of Systems Constitutional: No Fever Ears, Nose, & Throat: No Throat Pain Respiratory: No Dyspnea Cardiac: No Chest Pain Abdominal/Gastrointestinal: No Abdominal Pain, No Nausea, No Vomiting, No Diarrhea Genitourinary Symptoms: No Dysuria Neurological: Other (generalized weakness, left facial drooping and slurred speech for the past hour), No Headache - Past Medical History Pertinent Past Medical History: Yes Neurological History: No Pertinent History ENT History: Cataracts Cardiac History: High Cholesterol, Hypertension Respiratory History: No Pertinent History Endocrine Medical History: Diabetes Type II Musculoskeletal History: Rheumatoid Arthritis, Other GI Medical History: GERD History: Renal Disease, Other Psycho-Social History: No Pertinent History Female Reproductive Disorders: Breast Cancer Other Medical History: 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, psoriatic arthritis - Past Surgical History Past Surgical History: Yes Neuro Surgical History: No Pertinent History Cardiac: No Pertinent History Respiratory: No Pertinent History Gastrointestinal: No Pertinent History Genitourinary: No Pertinent History Musculoskeletal: Orthopedic Surgery Female Surgical History: Section, Tubal Ligation Other Surgical History: left arm fx repair with hardware,breast cancer surgery,left rotator cuff, port placement and removal, left arm tanvir placed,c- sections times 2 - Social History Smoking Status: Never smoker Exposure to second hand smoke: No Drug Use: none Patient Lives Alone: No - Nursing Vital Signs Nursing Vital Signs: Initial Vital Signs Temperature 98.6 F 07/28/23 20:10 Pulse Rate 78 07/28/23 20:10 Respiratory Rate 17 07/28/23 20:10 Blood Pressure 198/114 07/28/23 20:10 O2 Sat by Pulse Oximetry 93 L 07/28/23 20:10 Pain Scale Pain Intensity 0 - Physical Exam General Appearance: alert Eye Exam: bilateral eye: PERRL, EOMI Ears, Nose, Throat Exam: pharynx normal, other (cerumen occlusion of left ear) Neck Exam: normal inspection Respiratory: normal breath sounds Cardiovascular: murmur (2/6 systolic murmur) Gastrointestinal: normal bowel sounds Back Exam: normal inspection Extremity Exam: normal range of motion, No pedal edema Mental Status: alert, cooperative, other (oriented only to place) 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 Chronic lacunar infarcts, bilateral lentiform nuclei. Microvascular ischemic changes. 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 Arteriosclerosis.) Ordered Tests: Active Orders 24 hr Category Date Time Status Bedrest ROUTINE Activity 07/28/23 23:52 Active Call Admit Doctor for Orders ON ADMISSION Care 07/28/23 23:48 Active Research Manufacturing Operator STAT Care 07/28/23 20:20 Active Code Status Order ROUTINE Care 07/28/23 23:48 Active EKG-ER Only STAT Care 07/28/23 20:18 Active EKG-ER Only STAT Care 07/28/23 22:17 Active IV Insertion STAT Care 07/28/23 20:18 Active NPO (ED) STAT Care 07/28/23 20:18 Active Neuro Checks Q4H Care 07/28/23 23:[address] in Observation ROUTINE Care 07/28/23 23:53 Active Telemetry q6h Care 07/28/23 23:48 Active Heart-Healthy Diet Diet 07/29/23 Breakfast Active CHEST 2 VIEWS (PA AND LAT) Stat Exams 07/28/23 20:19 Taken HEAD WITHOUT CONTRAST [CT] Stat Exams 07/28/23 20:15 Completed MRI BRAIN W/O CONTRAST [MRI] Routine Exams 07/28/23 23:48 Ordered CBC AM.LAB Lab 07/29/23 04:00 Ordered CBC W DIFF Stat Lab 07/28/23 21:00 Completed CMP AM.LAB Lab 07/29/23 04:00 Ordered CMP Stat Lab 07/28/23 21:00 Completed CULTURE,URINE Stat Lab 07/28/23 20:23 Received MAGNESIUM AM.LAB Lab 07/29/23 04:00 Ordered MAGNESIUM Stat Lab 07/28/23 21:00 Completed PROTIME WITH INR Stat Lab 07/28/23 21:00 Completed PTT Stat Lab 07/28/23 21:00 Completed TROPONIN AM.LAB Lab 07/29/23 04:00 Ordered TROPONIN Q4H Lab 07/28/23 21:00 Completed TROPONIN Q4H Lab 07/28/23 22:30 Completed TROPONIN Q4H Lab 07/28/23 23:48 Ordered TROPONIN Q4H Lab 07/29/23 00:30 Ordered TROPONIN Q4H Lab 07/29/23 02:30 Ordered TROPONIN Q4H Lab 07/29/23 04:30 Ordered TROPONIN Q4H Lab 07/29/23 06:30 Ordered UA W/RFX UR CULTURE Stat Lab 07/28/23 20:23 Completed EKG REPEAT IN AM RT 07/28/23 23:48 Active Oxygen Nasal Cannula 2 lpm RT 07/28/23 23:48 Active Medication Summary Generic Name Dose Route Start Last Admin Trade Name Freq PRN Reason Stop Dose Admin Sodium Chloride 1,000 mls @ 100 mls/hr 07/28/23 20:30 07/28/23 21:12 Sodium Chloride 0.9% 1000 Ml IV 08/27/23 20:29 100 mls/hr .Q10H CLARISSA Administration Discontinued Medications Generic Name Dose Route Start Last Admin Trade Name Alea PRN Reason Stop Dose Admin Aspirin 324 mg 07/28/23 23:21 Aspirin 81 Mg Tab.Chew PO 07/28/23 23:22 STAT ONE Magnesium Sulfate/Dextrose 100 mls @ 200 mls/hr 07/28/23 22:24 07/28/23 22:26 Magnesium 1 Gm / 100 Ml D5w IV 07/28/23 22:53 200 mls/hr STAT ONE Administration Magnesium Sulfate/Dextrose Confirm 07/28/23 22:26 Magnesium 1 Gm / 100 Ml D5w Administered 07/28/23 22:27 Dose 100 mls @ ud IV .STK-MED ONE Magnesium Sulfate 1 gm 07/28/23 21:45 07/28/23 22:25 Magnesium Sulfate Injection IV 07/28/23 21:46 Not Given ONCE ONE Lab/Rad Data: Laboratory Result Diagrams 07/28/23 21:00 07/28/23 21:00 Laboratory Results 07/28/23 07/28/23 07/28/23 Range/Units 22:30 21:00 21:00 WBC (4.0-10.5) x10^3/uL RBC (4.1-5.4) x10^6/uL Hgb (12.0-16.0) g/dL Hct (35-47) % MCV (78-100) fL MCH (26-32) pg MCHC (32-36) g/dL RDW (11.5-14.0) % Plt Count (150-450) x10^3/uL MPV (7.5-11.0) fL Gran % (36.0-66.0) % Immature Gran % (Auto) (0.00-0.4) % Nucleat RBC Rel Count (0.00-0.1) % Eos # (Auto) (0-0.5) x10^3/uL Immature Gran # (Auto) (0.00-0.03) x10^3u/L Absolute Lymphs (auto) (1.0-4.6) x10^3/uL Absolute Monos (auto) (0.0-1.3) x10^3/uL Absolute Nucleated RBC (0.00-0.01) x10^3u/L Lymphocytes % (24.0-44.0) % Monocytes % (0.0-12.0) % Eosinophils % (0.00-5.0) % Basophils % (0.0-0.4) % Absolute Granulocytes (1.4-6.9) x10^3/uL Basophils # (0-0.4) x10^3/uL PT 10.8 (9.4-12.5) SECONDS INR 0.99 (0.8-3.0) APTT 25.2 (25.1-36.5) SECONDS Sodium (137-145) mmol/L Potassium (3.5-5.1) mmol/L Chloride (98-107) mmol/L Carbon Dioxide (22-30) mmol/L Anion Gap (5-15) MEQ/L BUN (7-17) mg/dL Creatinine (0.52-1.04) mg/dL Estimated GFR ML/MIN Glucose (74-106) mg/dL Calcium (8.4-10.2) mg/dL Magnesium (1.6-2.3) mg/dL Total Bilirubin (0.2-1.3) mg/dL AST (14-36) U/L ALT (0-35) U/L Alkaline Phosphatase (38-126) U/L Troponin I 0.022 0.016 (0.000-0.034) ng/mL Serum Total Protein (6.3-8.2) g/dL Albumin (3.5-5.0) g/dL Urine Color (Yellow) Urine Appearance (Clear) Urine pH (4.6-8.0) Ur Specific [place] (1.005-1.030) Urine Protein (Negative) Urine Glucose (UA) (Negative) mg/dL Urine Ketones (Negative) Urine Blood (Negative) Urine Nitrite (Negative) Urine Bilirubin (Negative) Urine Urobilinogen (0.2) mg/dL Ur Leukocyte Esterase (Negative) U Hyaline Cast (Auto) (0-2) /LPF Urine Microscopic RBC (0-5) /HPF Urine Microscopic WBC (0-5) /HPF Ur Epithelial Cells (None Seen) /HPF Urine Bacteria (None Seen) /HPF Urine Culture Reflexed (NO) 07/28/23 07/28/23 07/28/23 Range/Units 21:00 21:00 20:23 WBC 6.3 (4.0-10.5) x10^3/uL RBC 4.23 (4.1-5.4) x10^6/uL Hgb 11.4 L (12.0-16.0) g/dL Hct 37.0 (35-47) % MCV 87.5 (78-100) fL MCH 27.0 (26-32) pg MCHC 30.8 L (32-36) g/dL RDW 12.8 (11.5-14.0) % Plt Count 163 (150-450) x10^3/uL MPV 11.1 H (7.5-11.0) fL Gran % 68.8 H (36.0-66.0) % Immature Gran % (Auto) 0.3 (0.00-0.4) % Nucleat RBC Rel Count 0.0 (0.00-0.1) % Eos # (Auto) 0.04 (0-0.5) x10^3/uL Immature Gran # (Auto) 0.02 (0.00-0.03) x10^3u/L Absolute Lymphs (auto) 1.33 (1.0-4.6) x10^3/uL Absolute Monos (auto) 0.53 (0.0-1.3) x10^3/uL Absolute Nucleated RBC 0.00 (0.00-0.01) x10^3u/L Lymphocytes % 21.1 L (24.0-44.0) % Monocytes % 8.4 (0.0-12.0) % Eosinophils % 0.6 (0.00-5.0) % Basophils % 0.8 (0.0-0.4) % Absolute Granulocytes 4.33 (1.4-6.9) x10^3/uL Basophils # 0.05 (0-0.4) x10^3/uL PT (9.4-12.5) SECONDS INR (0.8-3.0) APTT (25.1-36.5) SECONDS Sodium 131 L (137-145) mmol/L Potassium 5.1 (3.5-5.1) mmol/L Chloride 98 (98-107) mmol/L Carbon Dioxide 23 (22-30) mmol/L Anion Gap 16.0 H (5-15) MEQ/L BUN 25 H (7-17) mg/dL Creatinine 1.72 H (0.52-1.04) mg/dL Estimated GFR 31.0 ML/MIN Glucose 153 H (74-106) mg/dL Calcium 9.7 (8.4-10.2) mg/dL Magnesium 1.2 L (1.6-2.3) mg/dL Total Bilirubin 0.40 (0.2-1.3) mg/dL AST 23 (14-36) U/L ALT 18 (0-35) U/L Alkaline Phosphatase 76 (38-126) U/L Troponin I (0.000-0.034) ng/mL Serum Total Protein 7.4 (6.3-8.2) g/dL Albumin 4.3 (3.5-5.0) g/dL Urine Color Yellow (Yellow) Urine Appearance Clear (Clear) Urine pH 5.5 (4.6-8.0) Ur Specific [place] <=1.005 (1.005-1.030) Urine Protein 30 (Negative) Urine Glucose (UA) Negative (Negative) mg/dL Urine Ketones Negative (Negative) Urine Blood Negative (Negative) Urine Nitrite Negative (Negative) Urine Bilirubin Negative (Negative) Urine Urobilinogen 0.2 (0.2) mg/dL Ur Leukocyte Esterase Trace A (Negative) U Hyaline Cast (Auto) NONE SEEN (0-2) /LPF Urine Microscopic RBC 0-2 (0-5) /HPF Urine Microscopic WBC 0-2 (0-5) /HPF Ur Epithelial Cells None Seen (None Seen) /HPF Urine Bacteria None Seen (None Seen) /HPF Urine Culture Reflexed YES (NO) - Progress Progress: improved Progress Note: 07/28/23 22:50 Repeat EKG @ 2243: Sinus rhythm, rate = 74, normal axis, minimal ST elevation in V1. 07/28/23 23:30: Speech is normal, no facial droop, very minimal deviation of tongue on extension to left. Discussed with DrLuis: Other (Spoke with Dr. Levy - obs.) Counseled pt/family regarding: lab results, diagnosis, rad results Medical Desision Making - Diagnostic Testing Diagnostic test were ordered, analyzed, and reviewed by me: Yes Radiological Interpretation: Teleradiologist Report - Departure Departure Disposition: Observation Clinical Impression: Hypomagnesemia, TIA (transient ischemic attack), Elevating troponin Condition: Stable Critical Care Time: No Referrals: SAMAN BARNETT [Primary Care Provider] - Follow up/PCP as directed
[2023-07-28 20:32] LABS: Appearance Clear (Clear); Bacteria None Seen /HPF (None Seen); Bilirubin Negative (Negative); Blood Negative (Negative); Epithelial Cells None Seen /HPF (None Seen); Glucose, Urine Negative (Negative); Hyaline Casts NONE SEEN /LPF (0-2); Ketones Negative (Negative); Leukocyte Esterase Trace (Negative); Nitrite Negative (Negative); Ph 5.5 (4.6-8.0); Protein,Urine Dip 30 (Negative); RBC 0-2 /HPF (0-5); Specific Gravity <=1.005 (1.005-1.030); Urobilinogen 0.2 mg/dL (0.2); WBC 0-2 /HPF (0-5)
[2023-07-28 20:37] LABS: ADD URINE CULTURE? YES (NO)
--- NOTE | 2023-07-28 20:52 | XRAY ---
CLINICAL HISTORY:confusion, slurring speech COMPARISON:None. TECHNIQUE:Axial non-contrast CT scan of the brain was performed from the skull base to the high parietal region. Coronal and sagittal reconstructions were also obtained. FINDINGS: No evidence of acute intracranial hemorrhage or major vascular territory infarct. Small round hypodense foci are seen at the bilateral lentiform nuclei, likely chronic lacunar infarcts. Patchy areas of parenchymal hypoattenuation are observed in the bilateral periventricular white matter regions, estevez radiata and centrum semiovale which are non-specific and may relate to chronic microvascular ischemic changes. The cortical sulci, fissures, basal cisterns, and ventricles are widened, and the cerebellar folia are shrunken, consistent with volume loss. Atherosclerotic calcific disease is seen in the vertebral, basilar, and internal carotid arteries. [place]-white matter differentiation is maintained. No midline shifts or deformity. There are coarse calcifications in the falx cerebri. Normal CT appearance of the posterior fossa structures namely the cerebellar hemispheres, brainstem and cerebellar peduncles. The IACs are unremarkable. The cerebello-pontine angles are clear. The pituitary gland, the pineal gland, the optic chiasm is unremarkable. The osseous structures in the skull base are unremarkable. No definite calvarium fractures. Th scanned paranasal sinuses are clear. IMPRESSION: 1. No evidence of acute intracranial hemorrhage or major vascular territory infarct. 2. Chronic lacunar infarcts, bilateral lentiform nuclei. 3. Microvascular ischemic changes. 4. 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 5. Arteriosclerosis. 6. MRI with DWI is suggested if clinically warranted. [facility] ER was called at [phone] at 8:49 PM EST, 07/28/2023 and results were verbally communicated to Dr. Dumont. Electronically Signed by: Sera Enrique MD. (07/28/2023 19:51:17 HANDLE ASSEMBLER)
[2023-07-28 21:06] LABS: Absolute Neutrophil Ct (ANC) 4.33 x10^3/uL (1.4-6.9); BASOPHIL % 0.8 % (0.0-0.4); Basophil (Absolute #) 0.05 x10^3/uL (0-0.4); Eosinophil % 0.6 % (0.00-5.0); Eosinophil (Absolute #) 0.04 x10^3/uL (0-0.5); Hemoglobin 11.4 g/dL (12.0-16.0); IMMATURE GRAN # 0.02 x10^3u/L (0.00-0.03); IMMATURE GRAN % 0.3 % (0.00-0.4); Lymphocyte (Absolute #) 1.33 x10^3/uL (1.0-4.6); Lymphocytes % 21.1 % (24.0-44.0); Mean Cell Volume 87.5 fL (78-100); Mean Corpuscular Hgb Concent. 30.8 g/dL (32-36); Mean Platelet Volume 11.1 fL (7.5-11.0); Monocyte (Absolute #) 0.53 x10^3/uL (0.0-1.3); Monocytes % 8.4 % (0.0-12.0); Neutrophil % 68.8 % (36.0-66.0); Platelet Count 163 x10^3/uL (150-450); Red Blood Count 4.23 x10^6/uL (4.1-5.4); Red Cell Distribution Width 12.8 % (11.5-14.0); White Blood Count 6.3 x10^3/uL (4.0-10.5)
[2023-07-28] MEDS: Sodium Chloride 0.9% 1000 ML 1,000 ML IV SCH (21:12)
[2023-07-28 21:21] LABS: ALBUMIN 4.3 g/dL (3.5-5.0); BILIRUBIN,TOTAL 0.4 mg/dL (0.2-1.3); Calcium 9.7 mg/dL (8.4-10.2); Creatinine 1 1.72 mg/dL (0.52-1.04); INR 0.99 (0.8-3.0); MAGNESIUM 1.2 mg/dL (1.6-2.3); PROTIME 10.8 SECONDS (9.4-12.5); PTT 25.2 SECONDS (25.1-36.5); Potassium 5.1 mmol/L (3.5-5.1); Total Protein 7.4 g/dL (6.3-8.2)
[2023-07-28] MEDS ORDERED: Magnesium Sulfate 1 GM/2 ML VIAL IV ONE (21:45)
[2023-07-28] MEDS ORDERED: Magnesium 1 Gm / 100 Ml D5W*** 100 ML IV ONE ×2 (22:24→22:26)
[2023-07-28] MEDS ORDERED: BABY ASPIRIN 81 MG CHEW PO ONE (23:21)
[2023-07-28] MEDS ORDERED: BABY ASPIRIN 81 MG CHEW ONE (23:57)
--- NOTE | 2023-07-29 00:21 | PCM.HP ---
History of Present Illness - Chief Complaint Chief Complaint: TIA, Elevating troponin Date: 07/28/23 History of Present Illness: Ms. Harrington is a 72 year old female with a past medical history significant for hypertension, diabetes, hyperlipidemia, previous TIAs and some chronic kidney disease who presents to the hospital with complaints of left sided weakness. This had resolved by the time she arrived in the ER, but she did have some persistent tongue deviation toward the left. She was outside the window for TPA, so none given. Her initial EKG demonstrated some mild abnormalities in V1/V2 and her initial troponin was high normal at 0.016, but then trended up to 0.022, so she was admitted for further evaluation. Her magnesium was also low at 1.2, so she was given replacement in the ER. Other notable labs had a creatinine of 1.72 and sodium of 131. She is currently resting in bed, in the ER, lethargic but arousable. She appears hemodynamically stable, no chest pain, no shortness of breath. - Review of Systems Constitutional: No Symptoms Eyes: No Symptoms Ears, Nose, & Throat: No Symptoms Respiratory: No Symptoms Cardiac: No Symptoms Abdominal/Gastrointestinal: No Symptoms Genitourinary Symptoms: No Symptoms Musculoskeletal: No Symptoms Skin: No Symptoms Neurological: Focal Weakness Psychological: No Symptoms Endocrine: No Symptoms Hematologic/Lymphatic: No Symptoms Immunological/Allergic: No Symptoms All Other Systems: Reviewed and Negative Medications & Allergies Home Medications: Home Medication List Cholecalciferol (Vitamin D3) [Vitamin D3] 1,000 unit PO DAILY 12/17/18 [History Confirmed 07/28/23] Loratadine 10 mg [Claritin 10 mg] 10 mg PO DAILY 12/17/18 [History Confirmed 07/28/23] Omeprazole 20 mg PO DAILY 12/23/18 [History Confirmed 07/28/23] Folic Acid 1 mg [Folate 1 mg] 1 mg PO DAILY 04/27/21 [History Confirmed 07/28/23] Insulin Lispro [Humalog] 100 unit SQ QIDPRN PRN 04/27/21 [History Confirmed 07/28/23] Metformin HCl 500 mg [Glucophage 500 MG] 500 mg PO BIDWM 07/12/22 [History Confirmed 07/28/23] Potassium Chloride 20 meq PO BID 07/28/23 [History Confirmed 07/28/23] Allergies/Adverse Reactions: Allergies Allergy/AdvReac Type Severity Reaction Status Date / Time diphenhydramine HCl AdvReac Mild "itchy & Verified 07/28/23 20:37 [From Benadryl] red face" - Past Medical History Past Medical History: Yes Neurological History: No Pertinent History ENT History: Cataracts Cardiac History: High Cholesterol, Hypertension Respiratory History: No Pertinent History Endocrine Medical History: Diabetes Type II Musculoskelatal History: Rheumatoid Arthritis, Other GI Medical History: GERD History: Renal Disease, Other Pyscho-Social History: No Pertinent History Reproductive Disorders: Breast Cancer Comment: 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, psoriatic arthritis - Past Surgical History Past Surgical History: Yes Neuro Surgical History: No Pertinent History Cardiac History: No Pertinent History Respiratory Surgery: No Pertinent History GI Surgical History: No Pertinent History Genitourinary Surgical Hx: No Pertinent History Musculskeletal Surgical Hx: Orthopedic Surgery Female Surgical History: Section, Tubal Ligation Other Surgical History: left arm fx repair with hardware,breast cancer surgery,left rotator cuff, port placement and removal, left arm tanvir placed,c- sections times 2 - Social History Smoking Status: Never smoker Exposure to second hand smoke: No Alcohol: None Drug Use: none Significant Family History: no pertinent family hx - Physical Exam Vital Signs: Vital Signs - 24 hr Temp Pulse Resp BP BP Pulse Ox 07/28/23 23:01 74 18 176/90 07/28/23 22:00 76 17 169/109 97 07/28/23 21:00 77 17 169/90 98 07/28/23 20:10 98.6 F 78 17 198/114 93 L General Appearance: no apparent distress Neurologic Exam: depressed mood/affect, No motor deficits, No sensory deficit, No slurred speech, No aphasia Ears, Nose, Throat Exam: dry mucous membranes Neck Exam: non-tender, supple Respiratory Exam: lungs clear Cardiovascular Exam: regular rate/rhythm Gastrointestinal/Abdomen Exam: soft, No tenderness Extremity Exam: No swelling, No tenderness Skin Exam: normal color, No cyanosis, No jaundice Results - Labs Lab/Micro Results: Lab Results-Last 24 Hours 07/28/23 07/28/23 07/28/23 Range/Units 20:23 21:00 21:00 WBC 6.3 (4.0-10.5) x10^3/uL RBC 4.23 (4.1-5.4) x10^6/uL Hgb 11.4 L (12.0-16.0) g/dL Hct 37.0 (35-47) % MCV 87.5 (78-100) fL MCH 27.0 (26-32) pg MCHC 30.8 L (32-36) g/dL RDW 12.8 (11.5-14.0) % Plt Count 163 (150-450) x10^3/uL MPV 11.1 H (7.5-11.0) fL Gran % 68.8 H (36.0-66.0) % Immature Gran % (Auto) 0.3 (0.00-0.4) % Nucleat RBC Rel Count 0.0 (0.00-0.1) % Eos # (Auto) 0.04 (0-0.5) x10^3/uL Immature Gran # (Auto) 0.02 (0.00-0.03) x10^3u/L Absolute Lymphs (auto) 1.33 (1.0-4.6) x10^3/uL Absolute Monos (auto) 0.53 (0.0-1.3) x10^3/uL Absolute Nucleated RBC 0.00 (0.00-0.01) x10^3u/L Lymphocytes % 21.1 L (24.0-44.0) % Monocytes % 8.4 (0.0-12.0) % Eosinophils % 0.6 (0.00-5.0) % Basophils % 0.8 (0.0-0.4) % Absolute Granulocytes 4.33 (1.4-6.9) x10^3/uL Basophils # 0.05 (0-0.4) x10^3/uL PT (9.4-12.5) SECONDS INR (0.8-3.0) APTT (25.1-36.5) SECONDS Sodium 131 L (137-145) mmol/L Potassium 5.1 (3.5-5.1) mmol/L Chloride 98 (98-107) mmol/L Carbon Dioxide 23 (22-30) mmol/L Anion Gap 16.0 H (5-15) MEQ/L BUN 25 H (7-17) mg/dL Creatinine 1.72 H (0.52-1.04) mg/dL Estimated GFR 31.0 ML/MIN Glucose 153 H (74-106) mg/dL Calcium 9.7 (8.4-10.2) mg/dL Magnesium 1.2 L (1.6-2.3) mg/dL Total Bilirubin 0.40 (0.2-1.3) mg/dL AST 23 (14-36) U/L ALT 18 (0-35) U/L Alkaline Phosphatase 76 (38-126) U/L Troponin I (0.000-0.034) ng/mL Serum Total Protein 7.4 (6.3-8.2) g/dL Albumin 4.3 (3.5-5.0) g/dL Urine Color Yellow (Yellow) Urine Appearance Clear (Clear) Urine pH 5.5 (4.6-8.0) Ur Specific [place] <=1.005 (1.005-1.030) Urine Protein 30 (Negative) Urine Glucose (UA) Negative (Negative) mg/dL Urine Ketones Negative (Negative) Urine Blood Negative (Negative) Urine Nitrite Negative (Negative) Urine Bilirubin Negative (Negative) Urine Urobilinogen 0.2 (0.2) mg/dL Ur Leukocyte Esterase Trace A (Negative) U Hyaline Cast (Auto) NONE SEEN (0-2) /LPF Urine Microscopic RBC 0-2 (0-5) /HPF Urine Microscopic WBC 0-2 (0-5) /HPF Ur Epithelial Cells None Seen (None Seen) /HPF Urine Bacteria None Seen (None Seen) /HPF Urine Culture Reflexed YES (NO) 07/28/23 07/28/23 07/28/23 Range/Units 21:00 21:00 22:30 WBC (4.0-10.5) x10^3/uL RBC (4.1-5.4) x10^6/uL Hgb (12.0-16.0) g/dL Hct (35-47) % MCV (78-100) fL MCH (26-32) pg MCHC (32-36) g/dL RDW (11.5-14.0) % Plt Count (150-450) x10^3/uL MPV (7.5-11.0) fL Gran % (36.0-66.0) % Immature Gran % (Auto) (0.00-0.4) % Nucleat RBC Rel Count (0.00-0.1) % Eos # (Auto) (0-0.5) x10^3/uL Immature Gran # (Auto) (0.00-0.03) x10^3u/L Absolute Lymphs (auto) (1.0-4.6) x10^3/uL Absolute Monos (auto) (0.0-1.3) x10^3/uL Absolute Nucleated RBC (0.00-0.01) x10^3u/L Lymphocytes % (24.0-44.0) % Monocytes % (0.0-12.0) % Eosinophils % (0.00-5.0) % Basophils % (0.0-0.4) % Absolute Granulocytes (1.4-6.9) x10^3/uL Basophils # (0-0.4) x10^3/uL PT 10.8 (9.4-12.5) SECONDS INR 0.99 (0.8-3.0) APTT 25.2 (25.1-36.5) SECONDS Sodium (137-145) mmol/L Potassium (3.5-5.1) mmol/L Chloride (98-107) mmol/L Carbon Dioxide (22-30) mmol/L Anion Gap (5-15) MEQ/L BUN (7-17) mg/dL Creatinine (0.52-1.04) mg/dL Estimated GFR ML/MIN Glucose (74-106) mg/dL Calcium (8.4-10.2) mg/dL Magnesium (1.6-2.3) mg/dL Total Bilirubin (0.2-1.3) mg/dL AST (14-36) U/L ALT (0-35) U/L Alkaline Phosphatase (38-126) U/L Troponin I 0.016 0.022 (0.000-0.034) ng/mL Serum Total Protein (6.3-8.2) g/dL Albumin (3.5-5.0) g/dL Urine Color (Yellow) Urine Appearance (Clear) Urine pH (4.6-8.0) Ur Specific [place] (1.005-1.030) Urine Protein (Negative) Urine Glucose (UA) (Negative) mg/dL Urine Ketones (Negative) Urine Blood (Negative) Urine Nitrite (Negative) Urine Bilirubin (Negative) Urine Urobilinogen (0.2) mg/dL Ur Leukocyte Esterase (Negative) U Hyaline Cast (Auto) (0-2) /LPF Urine Microscopic RBC (0-5) /HPF Urine Microscopic WBC (0-5) /HPF Ur Epithelial Cells (None Seen) /HPF Urine Bacteria (None Seen) /HPF Urine Culture Reflexed (NO) - Radiology Impressions Radiology Exams & Impressions: Radiology Procedures Category Date Time Status CHEST 2 VIEWS (PA AND LAT) Stat Exams 07/28/23 20:19 Taken HEAD WITHOUT CONTRAST [CT] Stat Exams 07/28/23 20:15 Completed MRI BRAIN W/O CONTRAST [MRI] Routine Exams 07/28/23 23:48 Ordered - Other Procedures and Tests Respiratory Therapy 07/28/23 23:48 EKG REPEAT IN AM Oxygen Nasal Cannula 2 lpm Assessment/Plan (1) Acute kidney failure, unspecified Current Visit: Yes Status: Acute Assessment & Plan: ELENA on CKD likely from mild prerenal azotemia with underlying hypertensive nephrosclerosis - creatinine 1.72 on admission 1. Trial of NS IVFs 2. Hold Metformin 3. Check urine lytes, urine osmo 4. Follow I/Os 5. Watch electrolytes, creatinine closely (2) Hypertensive chronic kidney disease with stage 1 through stage 4 chronic kidney disease, or unspecified chronic kidney disease Current Visit: Yes Status: Acute Assessment & Plan: Hypertension - under reasonable control with target < 130/80 Code(s): I12.9 - HYPERTENSIVE CHRONIC KIDNEY DISEASE W STG 1-4/UNSP CHR KDNY (3) Hypomagnesemia Current Visit: Yes Status: Acute Assessment & Plan: Mg low at 1.2 likely from GI losses - status post replacement Code(s): E83.42 - HYPOMAGNESEMIA (4) TIA (transient ischemic attack) Current Visit: Yes Status: Acute Assessment & Plan: TIA - appears resolved, had some initial L sided weakness and L tongue deviation. CT head negative 1. Will check MRI 2. Continue ASA, statin therapy 3. Consider carotid dopplers Code(s): G45.9 - TRANSIENT CEREBRAL ISCHEMIC ATTACK, UNSPECIFIED (5) Elevated troponin Current Visit: Yes Status: Acute Assessment & Plan: Elevated troponin with ? EKG changes 1. Admit for observation 2. Telemetry 3. Trend troponins 4. Check lipids 5. Continue ASA Code(s): R79.89 - OTHER SPECIFIED ABNORMAL FINDINGS OF BLOOD CHEMISTRY
[2023-07-29] MEDS ORDERED: TYLENOL 325 MG PO PRN (00:38)
[2023-07-29] MEDS ORDERED: Docusate Sodium 100 MG PO PRN (00:38)
[2023-07-29] MEDS ORDERED: NORVASC 5 MG PO ONE (01:11)
[2023-07-29] MEDS ORDERED: NORVASC 5 MG ONE (01:24)
[2023-07-29 02:56] LABS: Hematocrit 32.7 % (35-47); Hemoglobin 10.2 g/dL (12.0-16.0); Mean Cell Volume 86.5 fL (78-100); Mean Corpuscular Hgb Concent. 31.2 g/dL (32-36); Mean Platelet Volume 11.1 fL (7.5-11.0); Platelet Count 136 x10^3/uL (150-450); Red Blood Count 3.78 x10^6/uL (4.1-5.4); Red Cell Distribution Width 12.3 % (11.5-14.0); White Blood Count 4.5 x10^3/uL (4.0-10.5)
[2023-07-29 03:11] LABS: ALBUMIN 3.4 g/dL (3.5-5.0); ANION GAP 15.5 MEQ/L (5-15); BILIRUBIN,TOTAL 0.4 mg/dL (0.2-1.3); Creatinine 1 1.59 mg/dL (0.52-1.04); EST GLOMERULAR FILTRATION RATE 34.1 ML/MIN; MAGNESIUM 1.5 mg/dL (1.6-2.3); Potassium 4.6 mmol/L (3.5-5.1); Total Protein 5.8 g/dL (6.3-8.2)
--- NOTE | 2023-07-29 05:47 | PCM.NOTE ---
Date and Time: 07/29/23 0542 Subjective Assessment: HPI: Ms. Harrington is a 72 year old female with a past medical history significant for hypertension, diabetes, hyperlipidemia, previous TIAs and some chronic kidney disease who presents to the hospital with complaints of left sided weakness. This had resolved by the time she arrived in the ER, but she did have some persistent tongue deviation toward the left. She was outside the window for TPA, so none given. Her initial EKG demonstrated some mild abnormalities in V1/V2 and her initial troponin was high normal at 0.016, but then trended up to 0.022, so she was admitted for further evaluation. Her magnesium was also low at 1.2, so she was given replacement in the ER. Other notable labs had a creatinine of 1.72 and sodium of 131. She is currently resting in bed, in the ER, lethargic but arousable. She appears hemodynamically stable, no chest pain, no shortness of breath. 07/29/23: Met with patient bedside. Still with some confusion, she is orientated to self. She did recognize she is at the hospital but was unable to tell me what year it was or who the president is. No longer with weakness/tongue deviation. Strength is equal in in BUE/BLE 4/5. Sensation intact. Magnesium is still low this morning and will be replenished. Plan for further evaluation with MRI/MRA/ECHO neurology to follow. - Review of Systems Constitutional: Weakness Eyes: No Symptoms Ears, Nose, & Throat: No Symptoms Respiratory: No Symptoms Cardiac: No Symptoms Abdominal/Gastrointestinal: No Symptoms Genitourinary Symptoms: No Symptoms Musculoskeletal: No Symptoms Skin: No Symptoms Psychological: Other (confusion) Endocrine: No Symptoms Hematologic/Lymphatic: No Symptoms Objective Exam General Appearance: no apparent distress Neurologic Exam: alert, cooperative, confusion (A&O to self) Skin Exam: pale Eye Exam: PERRL Ears, Nose, Throat Exam: normal ENT inspection Neck Exam: normal inspection Respiratory Exam: normal breath sounds, lungs clear Cardiovascular Exam: regular rate/rhythm, normal heart sounds Gastrointestinal/Abdomen Exam: soft, normal bowel sounds Extremity Exam: normal inspection Back Exam: normal inspection OBJECTIVE DATA Vital Signs: Vital Signs - 24 hr Temp Pulse Resp BP BP Pulse Ox 07/29/23 04:00 17 07/29/23 03:58 97.8 F 85 17 155/83 97 07/29/23 00:48 97.7 F 70 18 174/84 07/28/23 23:01 74 18 176/90 07/28/23 22:00 76 17 169/109 97 07/28/23 21:00 77 17 169/90 98 07/28/23 20:10 98.6 F 78 17 198/114 93 L Pain Assessment - Last Documented Pain Intensity 0 Intake and Output: Intake & Output 07/26/23 07/27/23 07/28/23 07/29/23 11:59 11:59 11:59 11:59 Intake Total 336 Balance 336 Weight 57.1 kg Lab Results: Lab Results-Last 24 Hours 07/28/23 07/28/23 07/28/23 Range/Units 20:23 21:00 21:00 WBC 6.3 (4.0-10.5) x10^3/uL RBC 4.23 (4.1-5.4) x10^6/uL Hgb 11.4 L (12.0-16.0) g/dL Hct 37.0 (35-47) % MCV 87.5 (78-100) fL MCH 27.0 (26-32) pg MCHC 30.8 L (32-36) g/dL RDW 12.8 (11.5-14.0) % Plt Count 163 (150-450) x10^3/uL MPV 11.1 H (7.5-11.0) fL Gran % 68.8 H (36.0-66.0) % Immature Gran % (Auto) 0.3 (0.00-0.4) % Nucleat RBC Rel Count 0.0 (0.00-0.1) % Eos # (Auto) 0.04 (0-0.5) x10^3/uL Immature Gran # (Auto) 0.02 (0.00-0.03) x10^3u/L Absolute Lymphs (auto) 1.33 (1.0-4.6) x10^3/uL Absolute Monos (auto) 0.53 (0.0-1.3) x10^3/uL Absolute Nucleated RBC 0.00 (0.00-0.01) x10^3u/L Lymphocytes % 21.1 L (24.0-44.0) % Monocytes % 8.4 (0.0-12.0) % Eosinophils % 0.6 (0.00-5.0) % Basophils % 0.8 (0.0-0.4) % Absolute Granulocytes 4.33 (1.4-6.9) x10^3/uL Basophils # 0.05 (0-0.4) x10^3/uL PT (9.4-12.5) SECONDS INR (0.8-3.0) APTT (25.1-36.5) SECONDS Sodium 131 L (137-145) mmol/L Potassium 5.1 (3.5-5.1) mmol/L Chloride 98 (98-107) mmol/L Carbon Dioxide 23 (22-30) mmol/L Anion Gap 16.0 H (5-15) MEQ/L BUN 25 H (7-17) mg/dL Creatinine 1.72 H (0.52-1.04) mg/dL Estimated GFR 31.0 ML/MIN Glucose 153 H (74-106) mg/dL Calcium 9.7 (8.4-10.2) mg/dL Magnesium 1.2 L (1.6-2.3) mg/dL Total Bilirubin 0.40 (0.2-1.3) mg/dL AST 23 (14-36) U/L ALT 18 (0-35) U/L Alkaline Phosphatase 76 (38-126) U/L Troponin I (0.000-0.034) ng/mL Serum Total Protein 7.4 (6.3-8.2) g/dL Albumin 4.3 (3.5-5.0) g/dL Triglycerides (30-150) mg/dL Cholesterol (50-200) mg/dL LDL Cholesterol (30-100) mg/dL HDL Cholesterol (40-60) mg/dL Heart Disease Risk Ratio Urine Color Yellow (Yellow) Urine Appearance Clear (Clear) Urine pH 5.5 (4.6-8.0) Ur Specific Butler <=1.005 (1.005-1.030) Urine Protein 30 (Negative) Urine Glucose (UA) Negative (Negative) mg/dL Urine Ketones Negative (Negative) Urine Blood Negative (Negative) Urine Nitrite Negative (Negative) Urine Bilirubin Negative (Negative) Urine Urobilinogen 0.2 (0.2) mg/dL Ur Leukocyte Esterase Trace A (Negative) U Hyaline Cast (Auto) NONE SEEN (0-2) /LPF Urine Microscopic RBC 0-2 (0-5) /HPF Urine Microscopic WBC 0-2 (0-5) /HPF Ur Epithelial Cells None Seen (None Seen) /HPF Urine Bacteria None Seen (None Seen) /HPF Urine Culture Reflexed YES (NO) 07/28/23 07/28/23 07/28/23 Range/Units 21:00 21:00 22:30 WBC (4.0-10.5) x10^3/uL RBC (4.1-5.4) x10^6/uL Hgb (12.0-16.0) g/dL Hct (35-47) % MCV (78-100) fL MCH (26-32) pg MCHC (32-36) g/dL RDW (11.5-14.0) % Plt Count (150-450) x10^3/uL MPV (7.5-11.0) fL Gran % (36.0-66.0) % Immature Gran % (Auto) (0.00-0.4) % Nucleat RBC Rel Count (0.00-0.1) % Eos # (Auto) (0-0.5) x10^3/uL Immature Gran # (Auto) (0.00-0.03) x10^3u/L Absolute Lymphs (auto) (1.0-4.6) x10^3/uL Absolute Monos (auto) (0.0-1.3) x10^3/uL Absolute Nucleated RBC (0.00-0.01) x10^3u/L Lymphocytes % (24.0-44.0) % Monocytes % (0.0-12.0) % Eosinophils % (0.00-5.0) % Basophils % (0.0-0.4) % Absolute Granulocytes (1.4-6.9) x10^3/uL Basophils # (0-0.4) x10^3/uL PT 10.8 (9.4-12.5) SECONDS INR 0.99 (0.8-3.0) APTT 25.2 (25.1-36.5) SECONDS Sodium (137-145) mmol/L Potassium (3.5-5.1) mmol/L Chloride (98-107) mmol/L Carbon Dioxide (22-30) mmol/L Anion Gap (5-15) MEQ/L BUN (7-17) mg/dL Creatinine (0.52-1.04) mg/dL Estimated GFR ML/MIN Glucose (74-106) mg/dL Calcium (8.4-10.2) mg/dL Magnesium (1.6-2.3) mg/dL Total Bilirubin (0.2-1.3) mg/dL AST (14-36) U/L ALT (0-35) U/L Alkaline Phosphatase (38-126) U/L Troponin I 0.016 0.022 (0.000-0.034) ng/mL Serum Total Protein (6.3-8.2) g/dL Albumin (3.5-5.0) g/dL Triglycerides (30-150) mg/dL Cholesterol (50-200) mg/dL LDL Cholesterol (30-100) mg/dL HDL Cholesterol (40-60) mg/dL Heart Disease Risk Ratio Urine Color (Yellow) Urine Appearance (Clear) Urine pH (4.6-8.0) Ur Specific Butler (1.005-1.030) Urine Protein (Negative) Urine Glucose (UA) (Negative) mg/dL Urine Ketones (Negative) Urine Blood (Negative) Urine Nitrite (Negative) Urine Bilirubin (Negative) Urine Urobilinogen (0.2) mg/dL Ur Leukocyte Esterase (Negative) U Hyaline Cast (Auto) (0-2) /LPF Urine Microscopic RBC (0-5) /HPF Urine Microscopic WBC (0-5) /HPF Ur Epithelial Cells (None Seen) /HPF Urine Bacteria (None Seen) /HPF Urine Culture Reflexed (NO) 07/29/23 07/29/23 07/29/23 Range/Units 02:40 02:40 02:51 WBC (4.0-10.5) x10^3/uL RBC (4.1-5.4) x10^6/uL Hgb (12.0-16.0) g/dL Hct (35-47) % MCV (78-100) fL MCH (26-32) pg MCHC (32-36) g/dL RDW (11.5-14.0) % Plt Count (150-450) x10^3/uL MPV (7.5-11.0) fL Gran % (36.0-66.0) % Immature Gran % (Auto) (0.00-0.4) % Nucleat RBC Rel Count (0.00-0.1) % Eos # (Auto) (0-0.5) x10^3/uL Immature Gran # (Auto) (0.00-0.03) x10^3u/L Absolute Lymphs (auto) (1.0-4.6) x10^3/uL Absolute Monos (auto) (0.0-1.3) x10^3/uL Absolute Nucleated RBC (0.00-0.01) x10^3u/L Lymphocytes % (24.0-44.0) % Monocytes % (0.0-12.0) % Eosinophils % (0.00-5.0) % Basophils % (0.0-0.4) % Absolute Granulocytes (1.4-6.9) x10^3/uL Basophils # (0-0.4) x10^3/uL PT (9.4-12.5) SECONDS INR (0.8-3.0) APTT (25.1-36.5) SECONDS Sodium (137-145) mmol/L Potassium (3.5-5.1) mmol/L Chloride (98-107) mmol/L Carbon Dioxide (22-30) mmol/L Anion Gap (5-15) MEQ/L BUN (7-17) mg/dL Creatinine (0.52-1.04) mg/dL Estimated GFR ML/MIN Glucose (74-106) mg/dL Calcium (8.4-10.2) mg/dL Magnesium 1.5 L (1.6-2.3) mg/dL Total Bilirubin (0.2-1.3) mg/dL AST (14-36) U/L ALT (0-35) U/L Alkaline Phosphatase (38-126) U/L Troponin I 0.023 (0.000-0.034) ng/mL Serum Total Protein (6.3-8.2) g/dL Albumin (3.5-5.0) g/dL Triglycerides 154 H (30-150) mg/dL Cholesterol 166 (50-200) mg/dL LDL Cholesterol 83 (30-100) mg/dL HDL Cholesterol 55 (40-60) mg/dL Heart Disease Risk Ratio 3.0 Urine Color (Yellow) Urine Appearance (Clear) Urine pH (4.6-8.0) Ur Specific Butler (1.005-1.030) Urine Protein (Negative) Urine Glucose (UA) (Negative) mg/dL Urine Ketones (Negative) Urine Blood (Negative) Urine Nitrite (Negative) Urine Bilirubin (Negative) Urine Urobilinogen (0.2) mg/dL Ur Leukocyte Esterase (Negative) U Hyaline Cast (Auto) (0-2) /LPF Urine Microscopic RBC (0-5) /HPF Urine Microscopic WBC (0-5) /HPF Ur Epithelial Cells (None Seen) /HPF Urine Bacteria (None Seen) /HPF Urine Culture Reflexed (NO) 07/29/23 07/29/23 Range/Units 02:51 02:51 WBC 4.5 (4.0-10.5) x10^3/uL RBC 3.78 L (4.1-5.4) x10^6/uL Hgb 10.2 L (12.0-16.0) g/dL Hct 32.7 L (35-47) % MCV 86.5 (78-100) fL MCH 27.0 (26-32) pg MCHC 31.2 L (32-36) g/dL RDW 12.3 (11.5-14.0) % Plt Count 136 L (150-450) x10^3/uL MPV 11.1 H (7.5-11.0) fL Gran % (36.0-66.0) % Immature Gran % (Auto) (0.00-0.4) % Nucleat RBC Rel Count (0.00-0.1) % Eos # (Auto) (0-0.5) x10^3/uL Immature Gran # (Auto) (0.00-0.03) x10^3u/L Absolute Lymphs (auto) (1.0-4.6) x10^3/uL Absolute Monos (auto) (0.0-1.3) x10^3/uL Absolute Nucleated RBC (0.00-0.01) x10^3u/L Lymphocytes % (24.0-44.0) % Monocytes % (0.0-12.0) % Eosinophils % (0.00-5.0) % Basophils % (0.0-0.4) % Absolute Granulocytes (1.4-6.9) x10^3/uL Basophils # (0-0.4) x10^3/uL PT (9.4-12.5) SECONDS INR (0.8-3.0) APTT (25.1-36.5) SECONDS Sodium 131 L (137-145) mmol/L Potassium 4.6 (3.5-5.1) mmol/L Chloride 99 (98-107) mmol/L Carbon Dioxide 20 L (22-30) mmol/L Anion Gap 15.5 H (5-15) MEQ/L BUN 23 H (7-17) mg/dL Creatinine 1.59 H (0.52-1.04) mg/dL Estimated GFR 34.1 ML/MIN Glucose 174 H (74-106) mg/dL Calcium 9.0 (8.4-10.2) mg/dL Magnesium 1.5 L (1.6-2.3) mg/dL Total Bilirubin 0.40 (0.2-1.3) mg/dL AST 20 (14-36) U/L ALT 16 (0-35) U/L Alkaline Phosphatase 68 (38-126) U/L Troponin I (0.000-0.034) ng/mL Serum Total Protein 5.8 L (6.3-8.2) g/dL Albumin 3.4 L (3.5-5.0) g/dL Triglycerides (30-150) mg/dL Cholesterol (50-200) mg/dL LDL Cholesterol (30-100) mg/dL HDL Cholesterol (40-60) mg/dL Heart Disease Risk Ratio Urine Color (Yellow) Urine Appearance (Clear) Urine pH (4.6-8.0) Ur Specific Butler (1.005-1.030) Urine Protein (Negative) Urine Glucose (UA) (Negative) mg/dL Urine Ketones (Negative) Urine Blood (Negative) Urine Nitrite (Negative) Urine Bilirubin (Negative) Urine Urobilinogen (0.2) mg/dL Ur Leukocyte Esterase (Negative) U Hyaline Cast (Auto) (0-2) /LPF Urine Microscopic RBC (0-5) /HPF Urine Microscopic WBC (0-5) /HPF Ur Epithelial Cells (None Seen) /HPF Urine Bacteria (None Seen) /HPF Urine Culture Reflexed (NO) Radiology Exams: Radiology Procedures Category Date Time Status CHEST 2 VIEWS (PA AND LAT) Stat Exams 07/28/23 20:19 Taken HEAD WITHOUT CONTRAST [CT] Stat Exams 07/28/23 20:15 Completed MRI BRAIN W/O CONTRAST [MRI] Routine Exams 07/28/23 23:48 Ordered Assessment/Plan (1) Acute kidney failure, unspecified Current Visit: Yes Status: Acute Assessment & Plan: ELENA on CKD likely from mild prerenal azotemia with underlying hypertensive nephrosclerosis - creatinine 1.72 on admission 1. Trial of NS IVFs 2. Hold Metformin 3. Check urine lytes, urine osmo 4. Follow I/Os 5. Watch electrolytes, creatinine closely 07/29: -improving, now at 1.59, baseline around 1.4-1.6 -Continue IVF, monitor for fluid overload/renal/lytes #Hypertensive chronic kidney disease with stage 1 through stage 4 chronic kidney disease, or unspecified chronic kidney disease Current Visit: Yes Status: Acute Assessment & Plan: Hypertension - under reasonable control with target < 130/80 07/29: -Norvasc added Code(s): I12.9 - HYPERTENSIVE CHRONIC KIDNEY DISEASE W STG 1-4/UNSP CHR KDNY #Hypomagnesemia Current Visit: Yes Status: Acute Assessment & Plan: Mg low at 1.2 likely from GI losses - status post replacement 07/29: -Mag at 1.4 today, will replenish, continue to monitor Code(s): E83.42 - HYPOMAGNESEMIA #TIA (transient ischemic attack) Current Visit: Yes Status: Acute Assessment & Plan: TIA - appears resolved, had some initial L sided weakness and L tongue deviation. CT head negative 1. Will check MRI 2. Continue ASA, statin therapy 3. Consider carotid dopplers 07/29: -MRI/MRA H/N ordered Neurology consult pending, appreciate recs -Continue ASA/ statin Code(s): G45.9 - TRANSIENT CEREBRAL ISCHEMIC ATTACK, UNSPECIFIED # Elevated troponin Current Visit: Yes Status: Acute Assessment & Plan: Elevated troponin with ? EKG changes 1. Admit for observation 2. Telemetry 3. Trend troponins 4. Check lipids 5. Continue ASA #Diabetes Mellitus -ADA diet -SSI -A1c (2) Elevated troponin Current Visit: Yes Status: Acute Code(s): R79.89 - OTHER SPECIFIED ABNORMAL FINDINGS OF BLOOD CHEMISTRY (3) Hypertensive chronic kidney disease with stage 1 through stage 4 chronic kidney disease, or unspecified chronic kidney disease Current Visit: Yes Status: Acute Code(s): I12.9 - HYPERTENSIVE CHRONIC KIDNEY DISEASE W STG 1-4/UNSP CHR KDNY (4) Hypomagnesemia Current Visit: Yes Status: Acute Code(s): E83.42 - HYPOMAGNESEMIA (5) TIA (transient ischemic attack) Current Visit: Yes Status: Acute Code(s): G45.9 - TRANSIENT CEREBRAL ISCHEMIC ATTACK, UNSPECIFIED (6) Diabetes mellitus Current Visit: Yes Status: Acute Code(s): E11.9 - TYPE 2 DIABETES MELLITUS WITHOUT COMPLICATIONS
[2023-07-29] MEDS: Sodium Chloride 0.9% 1000 ML 1,000 ML IV SCH ×2 (06:47→19:44)
--- NOTE | 2023-07-29 08:43 | XRAY ---
Indication: Confusion. Slurred speech. Comparison: None PA/lateral chest inflated and clear. Heart not enlarged. Bony thorax intact with osteopenia, moderate degenerative changes, and old left humeral shaft fracture with intact fixation hardware. Impression: Nonacute chest with chronic features.
[2023-07-29] MEDS: Pepcid 20 MG PO SCH ×2 (10:02→20:58)
[2023-07-29] MEDS: NORVASC 5 MG PO SCH (10:22)
[2023-07-29] MEDS ORDERED: MAGNESIUM SULF 2 G/50 ML BAG 2 GM/50 ML PIGGYBACK IV ONE (11:00)
--- NOTE | 2023-07-29 13:22 | XRAY ---
Indication: TIA. Negative CT head without contrast exam. Sagittal, coronal, and axial MRI brain performed without contrast using T1, T2, FLAIR, diffusion, and ADC sequences. Comparison: None Age-appropriate global atrophy and moderate periventricular degenerative micro-ischemia signal bilaterally. Basal ganglia demonstrates multiple tiny remote lacunar infarcts bilaterally. No acute intracranial hemorrhage, abnormal extra-axial fluid collection, or mass effect. Diffusion images are negative for restricted signal. Fourth ventricle is midline without hydrocephalus. 7/8 cranial nerve complex bilaterally symmetric. Normal flow-void signal within the major intracerebral circulation. Normal appearing craniocervical junction and sella turcica. Paranasal sinuses and mastoid air cells are clear. Impression: Atrophy and degenerative micro-ischemia within normal limits for patient's age. Bilateral basal ganglia remote lacunar infarcts. No acute intracranial abnormalities or evidence for evolving large vessel territorial stroke.
--- NOTE | 2023-07-29 13:24 | XRAY ---
Indication: TIA. Negative CT head without contrast exam. Multi-slab 3-D [id number] MRA [place] of [place] performed. Comparison: None Distal internal carotid arteries are bilaterally symmetric without critical stenosis, obstruction, or AV malformation. Normal carotid terminus with normal branching A1 and M1 segments bilaterally. Normal MRA appearance to anterior communicating and right posterior communicating arteries. Posterior circulation demonstrates normal MRA appearance to basilar, left/right posterior cerebral, left/right superior cerebellar, and left/right anterior inferior cerebellar arteries. Impression: Negative MRA [place] of [place].
--- NOTE | 2023-07-29 13:40 | XRAY ---
Indication: TIA. Negative CT head without contrast exam. Multi-slab 3-D [id number] MRA neck performed. Comparison: None Visualized common carotid, carotid bulb, internal carotid, external carotid, and vertebral arteries are negative for critical stenosis/obstruction bilaterally. Impression: Negative MRA neck.
[2023-07-29] MEDS: FOLATE 1 MG PO SCH (14:15)
[2023-07-29] MEDS: CLARITIN 10 MG PO SCH (14:16)
[2023-07-29] MEDS: Protonix 40MG Tablet PO SCH (14:16)
[2023-07-29] MEDS: HUMULIN R SQ PRN ×2 (14:16→17:46)
[2023-07-29] MEDS: PLAVIX Tablet PO SCH (17:26)
[2023-07-29 17:38] LABS: Creatinine, Urine Random 15.3 mg/dl; Protein Creatinine Ratio, Ran. 2.03 mg/mg (0.0-0.15)
[2023-07-29] MEDS: ZOCOR 20MG PO SCH (20:58)
[2023-07-30 05:14] LABS: Absolute Neutrophil Ct (ANC) 5.02 x10^3/uL (1.4-6.9); BASOPHIL % 0.6 % (0.0-0.4); Basophil (Absolute #) 0.04 x10^3/uL (0-0.4); Eosinophil % 0.3 % (0.00-5.0); Eosinophil (Absolute #) 0.02 x10^3/uL (0-0.5); Hematocrit 36.4 % (35-47); Hemoglobin 11.4 g/dL (12.0-16.0); IMMATURE GRAN # 0.01 x10^3u/L (0.00-0.03); IMMATURE GRAN % 0.2 % (0.00-0.4); Lymphocyte (Absolute #) 0.82 x10^3/uL (1.0-4.6); Mean Cell Volume 86.3 fL (78-100); Mean Corpuscular Hgb Concent. 31.3 g/dL (32-36); Mean Platelet Volume 11.2 fL (7.5-11.0); Monocyte (Absolute #) 0.38 x10^3/uL (0.0-1.3); Neutrophil % 79.9 % (36.0-66.0); Platelet Count 160 x10^3/uL (150-450); Red Blood Count 4.22 x10^6/uL (4.1-5.4); Red Cell Distribution Width 12.4 % (11.5-14.0); White Blood Count 6.3 x10^3/uL (4.0-10.5)
[2023-07-30 05:24] LABS: ALBUMIN 4.5 g/dL (3.5-5.0); BILIRUBIN,TOTAL 0.7 mg/dL (0.2-1.3); Calcium 9.5 mg/dL (8.4-10.2); Creatinine 1 1.46 mg/dL (0.52-1.04); EST GLOMERULAR FILTRATION RATE 37.8 ML/MIN; Potassium 3.9 mmol/L (3.5-5.1); Total Protein 7.7 g/dL (6.3-8.2)
[2023-07-30] MEDS: HUMULIN R SQ PRN ×2 (08:36→21:25)
[2023-07-30] MEDS: ECOTRIN 81 MG PO SCH (09:33)
[2023-07-30] MEDS: Pepcid 20 MG PO SCH ×3 (09:33→22:04)
[2023-07-30] MEDS: Protonix 40MG Tablet PO SCH (09:33)
[2023-07-30] MEDS: VITAMIN D PO SCH (09:33)
[2023-07-30] MEDS: FOLATE 1 MG PO SCH (09:33)
[2023-07-30] MEDS: PLAVIX Tablet PO SCH (09:33)
[2023-07-30] MEDS: CLARITIN 10 MG PO SCH (09:34)
[2023-07-30] MEDS: NORVASC 5 MG PO SCH (09:36)
[2023-07-30] MEDS ORDERED: NON-FORMULARY ITEM (Omeprazole [Omeprazole] 20 MG Tablet.Dr) PO SCH (10:00)
[2023-07-30] MEDS ORDERED: CHOLECALCIFEROL 400 UNIT PO SCH (10:00)
[2023-07-30 11:18] LABS: Appearance Clear (Clear); Bacteria None Seen /HPF (None Seen); Bilirubin Negative (Negative); Blood Trace (Negative); Epithelial Cells None Seen /HPF (None Seen); Glucose, Urine 100 mg/dL (Negative); Hyaline Casts NONE SEEN /LPF (0-2); Ketones Negative (Negative); Leukocyte Esterase Negative (Negative); Nitrite Negative (Negative); Ph 5.5 (4.6-8.0); Protein,Urine Dip 30 (Negative); RBC 0-2 /HPF (0-5); Specific Gravity <=1.005 (1.005-1.030); Urobilinogen 0.2 mg/dL (0.2); WBC 0-2 /HPF (0-5)
[2023-07-30 11:26] LABS: ADD URINE CULTURE? NO (NO)
--- NOTE | 2023-07-30 12:54 | PCM.NOTE ---
Date and Time: 07/30/23 1241 Subjective Assessment: HPI: Ms. Harrington is a 72 year old female with a past medical history significant for hypertension, diabetes, hyperlipidemia, previous TIAs and some chronic kidney disease who presents to the hospital with complaints of left sided weakness. This had resolved by the time she arrived in the ER, but she did have some persistent tongue deviation toward the left. She was outside the window for TPA, so none given. Her initial EKG demonstrated some mild abnormalities in V1/V2 and her initial troponin was high normal at 0.016, but then trended up to 0.022, so she was admitted for further evaluation. Her magnesium was also low at 1.2, so she was given replacement in the ER. Other notable labs had a creatinine of 1.72 and sodium of 131. She is currently resting in bed, in the ER, lethargic but arousable. She appears hemodynamically stable, no chest pain, no shortness of breath. 07/29/23: Met with patient bedside. Still with some confusion, she is orientated to self. She did recognize she is at the hospital but was unable to tell me what year it was or who the president is. No longer with weakness/tongue deviation. Strength is equal in in BUE/BLE 4/5. Sensation intact. Magnesium is still low this morning and will be replenished. Plan for further evaluation with MRI/MRA/ECHO neurology to follow. 07/30/23: Met with patient bedside. RN reported overnight events of increased confusion. Patient orientated to self only. Per daughter's report, patient does have baseline confusion with neurology scheduled, but this has worsened recently. Brain MRI/MRA, Neck MRA are all negative for acute findings. ASA, Atorvastatin, plavix have been initiated. Neurology has been re consulted for recs on increa sing confusion. UA recollected and negative. No signs of infectious process. 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 II-XII nml as tested, disoriented, confusion Skin Exam: normal color Eye Exam: PERRL Ears, Nose, Throat Exam: normal ENT inspection Neck Exam: normal inspection Respiratory Exam: normal breath sounds, lungs clear Cardiovascular Exam: regular rate/rhythm, normal heart sounds Gastrointestinal/Abdomen Exam: soft, normal bowel sounds Extremity Exam: normal inspection Back Exam: normal inspection Pelvic Exam: deferred Rectal Exam: deferred OBJECTIVE DATA Vital Signs: Vital Signs - 24 hr Temp Pulse Resp BP Pulse Ox 07/30/23 11:24 98.0 F 66 16 172/84 100 07/30/23 08:45 16 07/30/23 07:37 98.0 F 66 16 164/77 99 07/30/23 04:00 97.1 F 63 16 140/77 98 07/29/23 23:41 97.5 F 69 16 152/72 99 07/29/23 18:58 98.6 F 65 16 156/72 94 L 07/29/23 18:00 97.3 F 70 18 145/70 98 07/29/23 16:12 18 07/29/23 14:00 97.3 F 70 17 145/70 98 Pain Assessment - Last Documented Pain Intensity 0 Intake and Output: Intake & Output 07/28/23 07/29/23 07/30/23 07/31/23 11:59 11:59 11:59 11:59 Intake Total 576 960 Balance 576 960 Weight 57.1 kg Lab Results: Lab Results-Last 24 Hours 07/29/23 07/29/23 07/29/23 Range/Units 10:18 10:18 14:01 WBC (4.0-10.5) x10^3/uL RBC (4.1-5.4) x10^6/uL Hgb (12.0-16.0) g/dL Hct (35-47) % MCV (78-100) fL MCH (26-32) pg MCHC (32-36) g/dL RDW (11.5-14.0) % Plt Count (150-450) x10^3/uL MPV (7.5-11.0) fL Gran % (36.0-66.0) % Immature Gran % (Auto) (0.00-0.4) % Nucleat RBC Rel Count (0.00-0.1) % Eos # (Auto) (0-0.5) x10^3/uL Immature Gran # (Auto) (0.00-0.03) x10^3u/L Absolute Lymphs (auto) (1.0-4.6) x10^3/uL Absolute Monos (auto) (0.0-1.3) x10^3/uL Absolute Nucleated RBC (0.00-0.01) x10^3u/L Lymphocytes % (24.0-44.0) % Monocytes % (0.0-12.0) % Eosinophils % (0.00-5.0) % Basophils % (0.0-0.4) % Absolute Granulocytes (1.4-6.9) x10^3/uL Basophils # (0-0.4) x10^3/uL Sodium (137-145) mmol/L Potassium (3.5-5.1) mmol/L Chloride (98-107) mmol/L Carbon Dioxide (22-30) mmol/L Anion Gap (5-15) MEQ/L BUN (7-17) mg/dL Creatinine (0.52-1.04) mg/dL Estimated GFR ML/MIN Glucose (74-106) mg/dL POC Glucometer 206 H (74 to 106) mg/dL Calcium (8.4-10.2) mg/dL Magnesium (1.6-2.3) mg/dL Total Bilirubin (0.2-1.3) mg/dL AST (14-36) U/L ALT (0-35) U/L Alkaline Phosphatase (38-126) U/L Serum Total Protein (6.3-8.2) g/dL Albumin (3.5-5.0) g/dL Free T4 1.32 (0.78-2.19) ng/dL TSH 3rd Generation 1.760 (0.47-4.68) mIU/L Urine Color (Yellow) Urine Appearance (Clear) Urine pH (4.6-8.0) Ur Specific [place] (1.005-1.030) Urine Protein (Negative) Urine Glucose (UA) (Negative) mg/dL Urine Ketones (Negative) Urine Blood (Negative) Urine Nitrite (Negative) Urine Bilirubin (Negative) Urine Urobilinogen (0.2) mg/dL Ur Leukocyte Esterase (Negative) U Hyaline Cast (Auto) (0-2) /LPF Urine Microscopic RBC (0-5) /HPF Urine Microscopic WBC (0-5) /HPF Ur Epithelial Cells (None Seen) /HPF Urine Bacteria (None Seen) /HPF Urine Culture Reflexed (NO) Ur Random Creatinine mg/dl U Random Total Protein (<12) mg/dl U [place] Prot/Creat Ratio (0.0-0.15) mg/mg Urine Sodium (30-90) mmol/L 07/29/23 07/29/23 07/29/23 Range/Units 15:26 15:26 16:02 WBC (4.0-10.5) x10^3/uL RBC (4.1-5.4) x10^6/uL Hgb (12.0-16.0) g/dL Hct (35-47) % MCV (78-100) fL MCH (26-32) pg MCHC (32-36) g/dL RDW (11.5-14.0) % Plt Count (150-450) x10^3/uL MPV (7.5-11.0) fL Gran % (36.0-66.0) % Immature Gran % (Auto) (0.00-0.4) % Nucleat RBC Rel Count (0.00-0.1) % Eos # (Auto) (0-0.5) x10^3/uL Immature Gran # (Auto) (0.00-0.03) x10^3u/L Absolute Lymphs (auto) (1.0-4.6) x10^3/uL Absolute Monos (auto) (0.0-1.3) x10^3/uL Absolute Nucleated RBC (0.00-0.01) x10^3u/L Lymphocytes % (24.0-44.0) % Monocytes % (0.0-12.0) % Eosinophils % (0.00-5.0) % Basophils % (0.0-0.4) % Absolute Granulocytes (1.4-6.9) x10^3/uL Basophils # (0-0.4) x10^3/uL Sodium (137-145) mmol/L Potassium (3.5-5.1) mmol/L Chloride (98-107) mmol/L Carbon Dioxide (22-30) mmol/L Anion Gap (5-15) MEQ/L BUN (7-17) mg/dL Creatinine (0.52-1.04) mg/dL Estimated GFR ML/MIN Glucose (74-106) mg/dL POC Glucometer 294 H (74 to 106) mg/dL Calcium (8.4-10.2) mg/dL Magnesium (1.6-2.3) mg/dL Total Bilirubin (0.2-1.3) mg/dL AST (14-36) U/L ALT (0-35) U/L Alkaline Phosphatase (38-126) U/L Serum Total Protein (6.3-8.2) g/dL Albumin (3.5-5.0) g/dL Free T4 (0.78-2.19) ng/dL TSH 3rd Generation (0.47-4.68) mIU/L Urine Color (Yellow) Urine Appearance (Clear) Urine pH (4.6-8.0) Ur Specific [place] (1.005-1.030) Urine Protein (Negative) Urine Glucose (UA) (Negative) mg/dL Urine Ketones (Negative) Urine Blood (Negative) Urine Nitrite (Negative) Urine Bilirubin (Negative) Urine Urobilinogen (0.2) mg/dL Ur Leukocyte Esterase (Negative) U Hyaline Cast (Auto) (0-2) /LPF Urine Microscopic RBC (0-5) /HPF Urine Microscopic WBC (0-5) /HPF Ur Epithelial Cells (None Seen) /HPF Urine Bacteria (None Seen) /HPF Urine Culture Reflexed (NO) Ur Random Creatinine 15.3 mg/dl U Random Total Protein 31.0 (<12) mg/dl U [place] Prot/Creat Ratio 2.03 H (0.0-0.15) mg/mg Urine Sodium 59 (30-90) mmol/L 07/29/23 07/30/23 07/30/23 Range/Units 21:45 04:20 04:50 WBC 6.3 (4.0-10.5) x10^3/uL RBC 4.22 (4.1-5.4) x10^6/uL Hgb 11.4 L (12.0-16.0) g/dL Hct 36.4 (35-47) % MCV 86.3 (78-100) fL MCH 27.0 (26-32) pg MCHC 31.3 L (32-36) g/dL RDW 12.4 (11.5-14.0) % Plt Count 160 (150-450) x10^3/uL MPV 11.2 H (7.5-11.0) fL Gran % 79.9 H (36.0-66.0) % Immature Gran % (Auto) 0.2 (0.00-0.4) % Nucleat RBC Rel Count 0.0 (0.00-0.1) % Eos # (Auto) 0.02 (0-0.5) x10^3/uL Immature Gran # (Auto) 0.01 (0.00-0.03) x10^3u/L Absolute Lymphs (auto) 0.82 L (1.0-4.6) x10^3/uL Absolute Monos (auto) 0.38 (0.0-1.3) x10^3/uL Absolute Nucleated RBC 0.00 (0.00-0.01) x10^3u/L Lymphocytes % 13.0 L (24.0-44.0) % Monocytes % 6.0 (0.0-12.0) % Eosinophils % 0.3 (0.00-5.0) % Basophils % 0.6 (0.0-0.4) % Absolute Granulocytes 5.02 (1.4-6.9) x10^3/uL Basophils # 0.04 (0-0.4) x10^3/uL Sodium (137-145) mmol/L Potassium (3.5-5.1) mmol/L Chloride (98-107) mmol/L Carbon Dioxide (22-30) mmol/L Anion Gap (5-15) MEQ/L BUN (7-17) mg/dL Creatinine (0.52-1.04) mg/dL Estimated GFR ML/MIN Glucose (74-106) mg/dL POC Glucometer 152 H (74 to 106) mg/dL Calcium (8.4-10.2) mg/dL Magnesium 1.8 (1.6-2.3) mg/dL Total Bilirubin (0.2-1.3) mg/dL AST (14-36) U/L ALT (0-35) U/L Alkaline Phosphatase (38-126) U/L Serum Total Protein (6.3-8.2) g/dL Albumin (3.5-5.0) g/dL Free T4 (0.78-2.19) ng/dL TSH 3rd Generation (0.47-4.68) mIU/L Urine Color (Yellow) Urine Appearance (Clear) Urine pH (4.6-8.0) Ur Specific [place] (1.005-1.030) Urine Protein (Negative) Urine Glucose (UA) (Negative) mg/dL Urine Ketones (Negative) Urine Blood (Negative) Urine Nitrite (Negative) Urine Bilirubin (Negative) Urine Urobilinogen (0.2) mg/dL Ur Leukocyte Esterase (Negative) U Hyaline Cast (Auto) (0-2) /LPF Urine Microscopic RBC (0-5) /HPF Urine Microscopic WBC (0-5) /HPF Ur Epithelial Cells (None Seen) /HPF Urine Bacteria (None Seen) /HPF Urine Culture Reflexed (NO) Ur Random Creatinine mg/dl U Random Total Protein (<12) mg/dl U [place] Prot/Creat Ratio (0.0-0.15) mg/mg Urine Sodium (30-90) mmol/L 07/30/23 07/30/23 07/30/23 Range/Units 04:50 06:14 11:02 WBC (4.0-10.5) x10^3/uL RBC (4.1-5.4) x10^6/uL Hgb (12.0-16.0) g/dL Hct (35-47) % MCV (78-100) fL MCH (26-32) pg MCHC (32-36) g/dL RDW (11.5-14.0) % Plt Count (150-450) x10^3/uL MPV (7.5-11.0) fL Gran % (36.0-66.0) % Immature Gran % (Auto) (0.00-0.4) % Nucleat RBC Rel Count (0.00-0.1) % Eos # (Auto) (0-0.5) x10^3/uL Immature Gran # (Auto) (0.00-0.03) x10^3u/L Absolute Lymphs (auto) (1.0-4.6) x10^3/uL Absolute Monos (auto) (0.0-1.3) x10^3/uL Absolute Nucleated RBC (0.00-0.01) x10^3u/L Lymphocytes % (24.0-44.0) % Monocytes % (0.0-12.0) % Eosinophils % (0.00-5.0) % Basophils % (0.0-0.4) % Absolute Granulocytes (1.4-6.9) x10^3/uL Basophils # (0-0.4) x10^3/uL Sodium 131 L (137-145) mmol/L Potassium 3.9 (3.5-5.1) mmol/L Chloride 100 (98-107) mmol/L Carbon Dioxide 22 (22-30) mmol/L Anion Gap 13.0 (5-15) MEQ/L BUN 19 H (7-17) mg/dL Creatinine 1.46 H (0.52-1.04) mg/dL Estimated GFR 37.8 ML/MIN Glucose 274 H (74-106) mg/dL POC Glucometer 247 H 165 H (74 to 106) mg/dL Calcium 9.5 (8.4-10.2) mg/dL Magnesium (1.6-2.3) mg/dL Total Bilirubin 0.70 (0.2-1.3) mg/dL AST 23 (14-36) U/L ALT 17 (0-35) U/L Alkaline Phosphatase 71 (38-126) U/L Serum Total Protein 7.7 (6.3-8.2) g/dL Albumin 4.5 (3.5-5.0) g/dL Free T4 (0.78-2.19) ng/dL TSH 3rd Generation (0.47-4.68) mIU/L Urine Color (Yellow) Urine Appearance (Clear) Urine pH (4.6-8.0) Ur Specific [place] (1.005-1.030) Urine Protein (Negative) Urine Glucose (UA) (Negative) mg/dL Urine Ketones (Negative) Urine Blood (Negative) Urine Nitrite (Negative) Urine Bilirubin (Negative) Urine Urobilinogen (0.2) mg/dL Ur Leukocyte Esterase (Negative) U Hyaline Cast (Auto) (0-2) /LPF Urine Microscopic RBC (0-5) /HPF Urine Microscopic WBC (0-5) /HPF Ur Epithelial Cells (None Seen) /HPF Urine Bacteria (None Seen) /HPF Urine Culture Reflexed (NO) Ur Random Creatinine mg/dl U Random Total Protein (<12) mg/dl U [place] Prot/Creat Ratio (0.0-0.15) mg/mg Urine Sodium (30-90) mmol/L 07/30/ Range/Units 11:08 WBC (4.0-10.5) x10^3/uL RBC (4.1-5.4) x10^6/uL Hgb (12.0-16.0) g/dL Hct (35-47) % MCV (78-100) fL MCH (26-32) pg MCHC (32-36) g/dL RDW (11.5-14.0) % Plt Count (150-450) x10^3/uL MPV (7.5-11.0) fL Gran % (36.0-66.0) % Immature Gran % (Auto) (0.00-0.4) % Nucleat RBC Rel Count (0.00-0.1) % Eos # (Auto) (0-0.5) x10^3/uL Immature Gran # (Auto) (0.00-0.03) x10^3u/L Absolute Lymphs (auto) (1.0-4.6) x10^3/uL Absolute Monos (auto) (0.0-1.3) x10^3/uL Absolute Nucleated RBC (0.00-0.01) x10^3u/L Lymphocytes % (24.0-44.0) % Monocytes % (0.0-12.0) % Eosinophils % (0.00-5.0) % Basophils % (0.0-0.4) % Absolute Granulocytes (1.4-6.9) x10^3/uL Basophils # (0-0.4) x10^3/uL Sodium (137-145) mmol/L Potassium (3.5-5.1) mmol/L Chloride (98-107) mmol/L Carbon Dioxide (22-30) mmol/L Anion Gap (5-15) MEQ/L BUN (7-17) mg/dL Creatinine (0.52-1.04) mg/dL Estimated GFR ML/MIN Glucose (74-106) mg/dL POC Glucometer (74 to 106) mg/dL Calcium (8.4-10.2) mg/dL Magnesium (1.6-2.3) mg/dL Total Bilirubin (0.2-1.3) mg/dL AST (14-36) U/L ALT (0-35) U/L Alkaline Phosphatase (38-126) U/L Serum Total Protein (6.3-8.2) g/dL Albumin (3.5-5.0) g/dL Free T4 (0.78-2.19) ng/dL TSH 3rd Generation (0.47-4.68) mIU/L Urine Color Yellow (Yellow) Urine Appearance Clear (Clear) Urine pH 5.5 (4.6-8.0) Ur Specific [place] <=1.005 (1.005-1.030) Urine Protein 30 (Negative) Urine Glucose (UA) 100 A (Negative) mg/dL Urine Ketones Negative (Negative) Urine Blood Trace (Negative) Urine Nitrite Negative (Negative) Urine Bilirubin Negative (Negative) Urine Urobilinogen 0.2 (0.2) mg/dL Ur Leukocyte Esterase Negative (Negative) U Hyaline Cast (Auto) NONE SEEN (0-2) /LPF Urine Microscopic RBC 0-2 (0-5) /HPF Urine Microscopic WBC 0-2 (0-5) /HPF Ur Epithelial Cells None Seen (None Seen) /HPF Urine Bacteria None Seen (None Seen) /HPF Urine Culture Reflexed NO (NO) Ur Random Creatinine mg/dl U Random Total Protein (<12) mg/dl U [place] Prot/Creat Ratio (0.0-0.15) mg/mg Urine Sodium (30-90) mmol/L Radiology Exams: Radiology Procedures Category Date Time Status CHEST 2 VIEWS (PA AND LAT) Stat Exams 07/28/23 20:19 Completed HEAD WITHOUT CONTRAST [CT] Stat Exams 07/28/23 20:15 Completed MRA BRAIN WITHOUT CONTRAST [MRI] Urgent Exams 07/29/23 11:45 Completed MRA NECK WITHOUT CONTRAST [MRI] Urgent Exams 07/29/23 11:45 Completed MRI BRAIN W/O CONTRAST [MRI] Routine Exams 07/29/23 12:15 Completed Assessment/Plan (1) Acute kidney failure, unspecified Current Visit: Yes Status: Acute Assessment & Plan: ELENA on CKD likely from mild prerenal azotemia with underlying hypertensive nephrosclerosis - creatinine 1.72 on admission 1. Trial of NS IVFs 2. Hold Metformin 3. Check urine lytes, urine osmo 4. Follow I/Os 5. Watch electrolytes, creatinine closely 07/29: -improving, now at 1.59, baseline around 1.4-1.6 -Continue IVF, monitor for fluid overload/renal/lytes 07/30: -Near baseline, continue to monitor -pt with no IV access #Hypertensive chronic kidney disease with stage 1 through stage 4 chronic kidney disease, or unspecified chronic kidney disease Current Visit: Yes Status: Acute Assessment & Plan: Hypertension - under reasonable control with target < 130/80 07/29: -Norvasc added 07/30: Code(s): I12.9 - HYPERTENSIVE CHRONIC KIDNEY DISEASE W STG 1-4/UNSP CHR KDNY #Hypomagnesemia Current Visit: Yes Status: Acute Assessment & Plan: Mg low at 1.2 likely from GI losses - status post replacement 07/29: -Mag at 1.4 today, will replenish, continue to monitor 07/30: -Mg wnl, continue to monitor Code(s): E83.42 - HYPOMAGNESEMIA #TIA (transient ischemic attack) Current Visit: Yes Status: Acute Assessment & Plan: TIA - appears resolved, had some initial L sided weakness and L tongue deviation. CT head negative 1. Will check MRI 2. Continue ASA, statin therapy 3. Consider carotid dopplers 07/29: -MRI/MRA H/N ordered Neurology consult pending, appreciate recs -Continue ASA/ statin 07/30: -Neurology workup negative for acute findings, however patient with increased confusion, will reconsult neurolgy, add seroquel at night Code(s): G45.9 - TRANSIENT CEREBRAL ISCHEMIC ATTACK, UNSPECIFIED # Elevated troponin Current Visit: Yes Status: Acute Assessment & Plan: Elevated troponin with ? EKG changes 1. Admit for observation 2. Telemetry 3. Trend troponins 4. Check lipids 5. Continue ASA 07/30: -Trop series WNL -lipid WNL -No CP #Diabetes Mellitus -ADA diet -SSI -A1c 07/30: -A1c at 10.5 indicating poor glycemic control, daughter states diabetic meds recently d/c'd, will continue SSI while IP (2) Elevated troponin Current Visit: Yes Status: Acute Code(s): R79.89 - OTHER SPECIFIED ABNORMAL FINDINGS OF BLOOD CHEMISTRY (3) Hypertensive chronic kidney disease with stage 1 through stage 4 chronic kidney disease, or unspecified chronic kidney disease Current Visit: Yes Status: Acute Code(s): I12.9 - HYPERTENSIVE CHRONIC KIDNEY DISEASE W STG 1-4/UNSP CHR KDNY (4) Hypomagnesemia Current Visit: Yes Status: Acute Code(s): E83.42 - HYPOMAGNESEMIA (5) TIA (transient ischemic attack) Current Visit: Yes Status: Acute Code(s): G45.9 - TRANSIENT CEREBRAL ISCHEMIC ATTACK, UNSPECIFIED (6) Diabetes mellitus Current Visit: Yes Status: Acute Code(s): E11.9 - TYPE 2 DIABETES MELLITUS WITHOUT COMPLICATIONS
[2023-07-30] MEDS ORDERED: Seroquel 25 MG PO ONE (13:24)
[2023-07-30] MEDS ORDERED: Seroquel 25 MG ONE (21:20)
[2023-07-30] MEDS: ZOCOR 20MG PO SCH ×2 (21:23→22:04)
[2023-07-31 04:59] LABS: Absolute Neutrophil Ct (ANC) 2.68 x10^3/uL (1.4-6.9); Basophil (Absolute #) 0.04 x10^3/uL (0-0.4); Eosinophil (Absolute #) 0.04 x10^3/uL (0-0.5); Hematocrit 37.6 % (35-47); Hemoglobin 11.7 g/dL (12.0-16.0); IMMATURE GRAN # 0.01 x10^3u/L (0.00-0.03); IMMATURE GRAN % 0.3 % (0.00-0.4); Lymphocytes % 22.6 % (24.0-44.0); Mean Cell Volume 86.4 fL (78-100); Mean Corpuscular Hemoglobin 26.9 pg (26-32); Mean Corpuscular Hgb Concent. 31.1 g/dL (32-36); Mean Platelet Volume 10.6 fL (7.5-11.0); Monocyte (Absolute #) 0.32 x10^3/uL (0.0-1.3); Neutrophil % 67.1 % (36.0-66.0); Platelet Count 144 x10^3/uL (150-450); Red Blood Count 4.35 x10^6/uL (4.1-5.4); Red Cell Distribution Width 12.4 % (11.5-14.0)
[2023-07-31 05:17] LABS: ALBUMIN 4.2 g/dL (3.5-5.0); BILIRUBIN,TOTAL 0.7 mg/dL (0.2-1.3); Calcium 9.8 mg/dL (8.4-10.2); Creatinine 1 1.61 mg/dL (0.52-1.04); EST GLOMERULAR FILTRATION RATE 33.6 ML/MIN; Total Protein 7.2 g/dL (6.3-8.2)
[2023-07-31 05:19] LABS: Potassium 3.9 mmol/L (3.5-5.1)
[2023-07-31 05:22] LABS: ANION GAP 12.9 MEQ/L (5-15)
--- NOTE | 2023-07-31 05:34 | PCM.DS ---
Discharge Summary Date of Admission: 07/29/23 00:00 Date of Discharge: 07/31/23 Admitting Physician: JOHN BARRAGAN MD Consults: Consults on Case 07/29/23 07:25 Consult Neurology ROUTINE Primary Care Provider: SAMAN BARNETT Allergies Allergies diphenhydramine HCl [From Benadryl] Adverse Reaction (Mild, Verified 07/28/23 20:37) "itchy & red face" Hospital Summary - Hospital Course Hospital Course: HPI: Ms. Harrington is a 72 year old female with a past medical history significant for hypertension, diabetes, hyperlipidemia, previous TIAs and some chronic kidney disease who presents to the hospital with complaints of left sided weakness. This had resolved by the time she arrived in the ER, but she did have some persistent tongue deviation toward the left. She was outside the window for TPA, so none given. Neurology consulted with negative workup. This may be worsening of known dementia. Recommendations include outpatient neurology follow up, continue ASA/Plavix for 21 days, plavix only after the 21 days. F/U TTE, continue statin, and OP cardiac monitoring. Patient has had elevated blood glucose level during hospital course with A1c at 10.52. Liliana Hester states she is on Metformin and SSI at home but often does not give correct dosing of insulin. I have advised her stick with SSI as directed and follow up with Dr. Barnett if changes are needed. Liliana Hester states patient has been set up with neurology by Dr. Barnett, advised her to call for appt updates. New Diagnosis:TIA New Medications: Plavix/ASA/Seroquel Follow Up: PCP/neurology/cardiology Latest Assessment & Plan ELENA on CKD likely from mild prerenal azotemia with underlying hypertensive nephrosclerosis - creatinine 1.72 on admission 1. Trial of NS IVFs 2. Hold Metformin 3. Check urine lytes, urine osmo 4. Follow I/Os 5. Watch electrolytes, creatinine closely 07/29: -improving, now at 1.59, baseline around 1.4-1.6 -Continue IVF, monitor for fluid overload/renal/lytes 07/30: -Near baseline, continue to monitor -pt with no IV access #Hypertensive chronic kidney disease with stage 1 through stage 4 chronic kidney disease, or unspecified chronic kidney disease Current Visit: Yes Status: Acute Assessment & Plan: Hypertension - under reasonable control with target < 130/80 07/29: -Norvasc added 07/30: Code(s): I12.9 - HYPERTENSIVE CHRONIC KIDNEY DISEASE W STG 1-4/UNSP CHR KDNY #Hypomagnesemia Current Visit: Yes Status: Acute Assessment & Plan: Mg low at 1.2 likely from GI losses - status post replacement 07/29: -Mag at 1.4 today, will replenish, continue to monitor 07/30: -Mg wnl, continue to monitor Code(s): E83.42 - HYPOMAGNESEMIA #TIA (transient ischemic attack) Current Visit: Yes Status: Acute Assessment & Plan: TIA - appears resolved, had some initial L sided weakness and L tongue deviation. CT head negative 1. Will check MRI 2. Continue ASA, statin therapy 3. Consider carotid dopplers 07/29: -MRI/MRA H/N ordered Neurology consult pending, appreciate recs -Continue ASA/ statin 07/30: -Neurology workup negative for acute findings, however patient with increased confusion, will reconsult neurolgy, add seroquel at night Code(s): G45.9 - TRANSIENT CEREBRAL ISCHEMIC ATTACK, UNSPECIFIED # Elevated troponin Current Visit: Yes Status: Acute Assessment & Plan: Elevated troponin with ? EKG changes 1. Admit for observation 2. Telemetry 3. Trend troponins 4. Check lipids 5. Continue ASA 07/30: -Trop series WNL -lipid WNL -No CP #Diabetes Mellitus -ADA diet -SSI -A1c 07/30: -A1c at 10.5 indicating poor glycemic control, daughter states diabetic meds recently d/c'd, will continue SSI while IP I spent 35 minutes [id number] with the patient on the day of discharge performing discharge exam, discussing hospital stay and discharge instructions with patient and caregivers, preparation of discharge records, prescriptions & referral forms and addressing any questions/concerns the patient had as documented above. - Vitals & Intake/Output Vital Signs: Vital Signs Temperature 97.5 F 07/30/23 20:00 Pulse Rate 76 07/31/23 04:00 Respiratory Rate 20 07/31/23 04:00 Blood Pressure 130/94 07/31/23 04:00 O2 Sat by Pulse Oximetry 99 07/31/23 04:00 Intake & Output: Intake & Output 07/28/23 07/29/23 07/30/23 07/31/23 11:59 11:59 11:59 11:59 Intake Total 576 960 120 Balance 576 960 120 Weight 57.1 kg - Lab Result Diagrams: 07/31/23 04:50 07/31/23 04:50 Lab Results-Last 24 Hrs: Lab Results-Last 24 Hours 07/30/23 07/30/23 07/30/23 Range/Units 04:20 04:50 06:14 WBC (4.0-10.5) x10^3/uL RBC (4.1-5.4) x10^6/uL Hgb (12.0-16.0) g/dL Hct (35-47) % MCV (78-100) fL MCH (26-32) pg MCHC (32-36) g/dL RDW (11.5-14.0) % Plt Count (150-450) x10^3/uL MPV (7.5-11.0) fL Gran % (36.0-66.0) % Immature Gran % (Auto) (0.00-0.4) % Nucleat RBC Rel Count (0.00-0.1) % Eos # (Auto) (0-0.5) x10^3/uL Immature Gran # (Auto) (0.00-0.03) x10^3u/L Absolute Lymphs (auto) (1.0-4.6) x10^3/uL Absolute Monos (auto) (0.0-1.3) x10^3/uL Absolute Nucleated RBC (0.00-0.01) x10^3u/L Lymphocytes % (24.0-44.0) % Monocytes % (0.0-12.0) % Eosinophils % (0.00-5.0) % Basophils % (0.0-0.4) % Absolute Granulocytes (1.4-6.9) x10^3/uL Basophils # (0-0.4) x10^3/uL Sodium 131 L (137-145) mmol/L Potassium 3.9 (3.5-5.1) mmol/L Chloride 100 (98-107) mmol/L Carbon Dioxide 22 (22-30) mmol/L Anion Gap 13.0 (5-15) MEQ/L BUN 19 H (7-17) mg/dL Creatinine 1.46 H (0.52-1.04) mg/dL Estimated GFR 37.8 ML/MIN Glucose 274 H (74-106) mg/dL POC Glucometer 247 H (74 to 106) mg/dL Calcium 9.5 (8.4-10.2) mg/dL Magnesium 1.8 (1.6-2.3) mg/dL Total Bilirubin 0.70 (0.2-1.3) mg/dL AST 23 (14-36) U/L ALT 17 (0-35) U/L Alkaline Phosphatase 71 (38-126) U/L Serum Total Protein 7.7 (6.3-8.2) g/dL Albumin 4.5 (3.5-5.0) g/dL Urine Color (Yellow) Urine Appearance (Clear) Urine pH (4.6-8.0) Ur Specific [place] (1.005-1.030) Urine Protein (Negative) Urine Glucose (UA) (Negative) mg/dL Urine Ketones (Negative) Urine Blood (Negative) Urine Nitrite (Negative) Urine Bilirubin (Negative) Urine Urobilinogen (0.2) mg/dL Ur Leukocyte Esterase (Negative) U Hyaline Cast (Auto) (0-2) /LPF Urine Microscopic RBC (0-5) /HPF Urine Microscopic WBC (0-5) /HPF Ur Epithelial Cells (None Seen) /HPF Urine Bacteria (None Seen) /HPF Urine Culture Reflexed (NO) 07/30/23 07/30/23 07/30/23 Range/Units 11:02 11:08 16:27 WBC (4.0-10.5) x10^3/uL RBC (4.1-5.4) x10^6/uL Hgb (12.0-16.0) g/dL Hct (35-47) % MCV (78-100) fL MCH (26-32) pg MCHC (32-36) g/dL RDW (11.5-14.0) % Plt Count (150-450) x10^3/uL MPV (7.5-11.0) fL Gran % (36.0-66.0) % Immature Gran % (Auto) (0.00-0.4) % Nucleat RBC Rel Count (0.00-0.1) % Eos # (Auto) (0-0.5) x10^3/uL Immature Gran # (Auto) (0.00-0.03) x10^3u/L Absolute Lymphs (auto) (1.0-4.6) x10^3/uL Absolute Monos (auto) (0.0-1.3) x10^3/uL Absolute Nucleated RBC (0.00-0.01) x10^3u/L Lymphocytes % (24.0-44.0) % Monocytes % (0.0-12.0) % Eosinophils % (0.00-5.0) % Basophils % (0.0-0.4) % Absolute Granulocytes (1.4-6.9) x10^3/uL Basophils # (0-0.4) x10^3/uL Sodium (137-145) mmol/L Potassium (3.5-5.1) mmol/L Chloride (98-107) mmol/L Carbon Dioxide (22-30) mmol/L Anion Gap (5-15) MEQ/L BUN (7-17) mg/dL Creatinine (0.52-1.04) mg/dL Estimated GFR ML/MIN Glucose (74-106) mg/dL POC Glucometer 165 H 180 H (74 to 106) mg/dL Calcium (8.4-10.2) mg/dL Magnesium (1.6-2.3) mg/dL Total Bilirubin (0.2-1.3) mg/dL AST (14-36) U/L ALT (0-35) U/L Alkaline Phosphatase (38-126) U/L Serum Total Protein (6.3-8.2) g/dL Albumin (3.5-5.0) g/dL Urine Color Yellow (Yellow) Urine Appearance Clear (Clear) Urine pH 5.5 (4.6-8.0) Ur Specific [place] <=1.005 (1.005-1.030) Urine Protein 30 (Negative) Urine Glucose (UA) 100 A (Negative) mg/dL Urine Ketones Negative (Negative) Urine Blood Trace (Negative) Urine Nitrite Negative (Negative) Urine Bilirubin Negative (Negative) Urine Urobilinogen 0.2 (0.2) mg/dL Ur Leukocyte Esterase Negative (Negative) U Hyaline Cast (Auto) NONE SEEN (0-2) /LPF Urine Microscopic RBC 0-2 (0-5) /HPF Urine Microscopic WBC 0-2 (0-5) /HPF Ur Epithelial Cells None Seen (None Seen) /HPF Urine Bacteria None Seen (None Seen) /HPF Urine Culture Reflexed NO (NO) 07/30/23 07/30/23 07/31/23 Range/Units 18:07 20:57 04:50 WBC 4.0 (4.0-10.5) x10^3/uL RBC 4.35 (4.1-5.4) x10^6/uL Hgb 11.7 L (12.0-16.0) g/dL Hct 37.6 (35-47) % MCV 86.4 (78-100) fL MCH 26.9 (26-32) pg MCHC 31.1 L (32-36) g/dL RDW 12.4 (11.5-14.0) % Plt Count 144 L (150-450) x10^3/uL MPV 10.6 (7.5-11.0) fL Gran % 67.1 H (36.0-66.0) % Immature Gran % (Auto) 0.3 (0.00-0.4) % Nucleat RBC Rel Count 0.0 (0.00-0.1) % Eos # (Auto) 0.04 (0-0.5) x10^3/uL Immature Gran # (Auto) 0.01 (0.00-0.03) x10^3u/L Absolute Lymphs (auto) 0.90 L (1.0-4.6) x10^3/uL Absolute Monos (auto) 0.32 (0.0-1.3) x10^3/uL Absolute Nucleated RBC 0.00 (0.00-0.01) x10^3u/L Lymphocytes % 22.6 L (24.0-44.0) % Monocytes % 8.0 (0.0-12.0) % Eosinophils % 1.0 (0.00-5.0) % Basophils % 1.0 (0.0-0.4) % Absolute Granulocytes 2.68 (1.4-6.9) x10^3/uL Basophils # 0.04 (0-0.4) x10^3/uL Sodium (137-145) mmol/L Potassium (3.5-5.1) mmol/L Chloride (98-107) mmol/L Carbon Dioxide (22-30) mmol/L Anion Gap (5-15) MEQ/L BUN (7-17) mg/dL Creatinine (0.52-1.04) mg/dL Estimated GFR ML/MIN Glucose (74-106) mg/dL POC Glucometer 168 H 239 H (74 to 106) mg/dL Calcium (8.4-10.2) mg/dL Magnesium (1.6-2.3) mg/dL Total Bilirubin (0.2-1.3) mg/dL AST (14-36) U/L ALT (0-35) U/L Alkaline Phosphatase (38-126) U/L Serum Total Protein (6.3-8.2) g/dL Albumin (3.5-5.0) g/dL Urine Color (Yellow) Urine Appearance (Clear) Urine pH (4.6-8.0) Ur Specific [place] (1.005-1.030) Urine Protein (Negative) Urine Glucose (UA) (Negative) mg/dL Urine Ketones (Negative) Urine Blood (Negative) Urine Nitrite (Negative) Urine Bilirubin (Negative) Urine Urobilinogen (0.2) mg/dL Ur Leukocyte Esterase (Negative) U Hyaline Cast (Auto) (0-2) /LPF Urine Microscopic RBC (0-5) /HPF Urine Microscopic WBC (0-5) /HPF Ur Epithelial Cells (None Seen) /HPF Urine Bacteria (None Seen) /HPF Urine Culture Reflexed (NO) 07/31/23 07/31/23 Range/Units 04:50 04:50 WBC (4.0-10.5) x10^3/uL RBC (4.1-5.4) x10^6/uL Hgb (12.0-16.0) g/dL Hct (35-47) % MCV (78-100) fL MCH (26-32) pg MCHC (32-36) g/dL RDW (11.5-14.0) % Plt Count (150-450) x10^3/uL MPV (7.5-11.0) fL Gran % (36.0-66.0) % Immature Gran % (Auto) (0.00-0.4) % Nucleat RBC Rel Count (0.00-0.1) % Eos # (Auto) (0-0.5) x10^3/uL Immature Gran # (Auto) (0.00-0.03) x10^3u/L Absolute Lymphs (auto) (1.0-4.6) x10^3/uL Absolute Monos (auto) (0.0-1.3) x10^3/uL Absolute Nucleated RBC (0.00-0.01) x10^3u/L Lymphocytes % (24.0-44.0) % Monocytes % (0.0-12.0) % Eosinophils % (0.00-5.0) % Basophils % (0.0-0.4) % Absolute Granulocytes (1.4-6.9) x10^3/uL Basophils # (0-0.4) x10^3/uL Sodium 136 L (137-145) mmol/L Potassium 3.9 (3.5-5.1) mmol/L Chloride 102 (98-107) mmol/L Carbon Dioxide 25 (22-30) mmol/L Anion Gap 12.9 (5-15) MEQ/L BUN 21 H (7-17) mg/dL Creatinine 1.61 H (0.52-1.04) mg/dL Estimated GFR 33.6 ML/MIN Glucose 135 H (74-106) mg/dL POC Glucometer (74 to 106) mg/dL Calcium 9.8 (8.4-10.2) mg/dL Magnesium 1.6 (1.6-2.3) mg/dL Total Bilirubin 0.70 (0.2-1.3) mg/dL AST 26 (14-36) U/L ALT 15 (0-35) U/L Alkaline Phosphatase 62 (38-126) U/L Serum Total Protein 7.2 (6.3-8.2) g/dL Albumin 4.2 (3.5-5.0) g/dL Urine Color (Yellow) Urine Appearance (Clear) Urine pH (4.6-8.0) Ur Specific [place] (1.005-1.030) Urine Protein (Negative) Urine Glucose (UA) (Negative) mg/dL Urine Ketones (Negative) Urine Blood (Negative) Urine Nitrite (Negative) Urine Bilirubin (Negative) Urine Urobilinogen (0.2) mg/dL Ur Leukocyte Esterase (Negative) U Hyaline Cast (Auto) (0-2) /LPF Urine Microscopic RBC (0-5) /HPF Urine Microscopic WBC (0-5) /HPF Ur Epithelial Cells (None Seen) /HPF Urine Bacteria (None Seen) /HPF Urine Culture Reflexed (NO) Micro Results-Entire Visit: Microbiology 07/28/23 20:23 Urine Culture - Final Clean Catch Midstream MIXED RONY; 3 OR MORE TYPES. NO PREDOMINANT ORGANISM. NO FURTHER WORKUP. PLEASE RESUBMIT IF CLINICALLY INDICATED. Accuchecks Date 07/30/23 Date 07/30/23 Date 07/30/23 Date 07/30/23 Time 20:45 Time 17:07 Time 11:24 Time 07:37 - Radiology Exams Ordered Rad Exams-Entire Visit: Radiology Procedures Category Date Time Status MRA BRAIN WITHOUT CONTRAST [MRI] Urgent Exams 07/29/23 11:45 Completed MRA NECK WITHOUT CONTRAST [MRI] Urgent Exams 07/29/23 11:45 Completed MRI BRAIN W/O CONTRAST [MRI] Routine Exams 07/29/23 12:15 Completed - Procedures and Test Procedures and Tests throughout Hospitalization: Therapy Orders & Screens 07/28/23 23:48 EKG REPEAT IN AM Comment: 07/29/23 00:38 PT Eval & Treat (MD Order) ONCE Reason for Eval:: TIA Diagnosis: TIA, Elevating troponin 07/29/23 01:19 ST Screen per Nursing Assess ONCE Comment: Protocol Order Physician Instructions: Greater than [address] Admission Screening Reason For Exam: Triggered on Admission Diagnosis: TIA, Elevating troponin CVA/Dyshpagia/Aphasia: Yes Cognitive Deficits: No Dehydration/Nutrition Deficit: No Reflux: No Oral-Motor Difficulties: No Pneumonia: No [facility] Resident: No Total Points: 5 Discharge Exam General Appearance: no apparent distress Neurologic Exam: alert, disoriented, confusion Eye Exam: PERRL Ears, Nose, Throat Exam: normal ENT inspection Neck Exam: normal inspection Respiratory Exam: normal breath sounds, lungs clear Cardiovascular Exam: regular rate/rhythm, normal heart sounds Gastrointestinal/Abdomen Exam: soft, normal bowel sounds Pelvic Exam: deferred Rectal Exam: deferred Back Exam: normal inspection Extremity Exam: normal inspection Skin Exam: normal color Final Diagnosis/Problem List - Final Discharge Diagnosis/Problem (1) Acute kidney failure, unspecified Current Visit: Yes Status: Acute (2) Elevated troponin Current Visit: Yes Status: Acute Code(s): R79.89 - OTHER SPECIFIED ABNORMAL FINDINGS OF BLOOD CHEMISTRY (3) Hypertensive chronic kidney disease with stage 1 through stage 4 chronic kidney disease, or unspecified chronic kidney disease Current Visit: Yes Status: Acute Code(s): I12.9 - HYPERTENSIVE CHRONIC KIDNEY DISEASE W STG 1-4/UNSP CHR KDNY (4) Hypomagnesemia Current Visit: Yes Status: Acute Code(s): E83.42 - HYPOMAGNESEMIA (5) TIA (transient ischemic attack) Current Visit: Yes Status: Acute Code(s): G45.9 - TRANSIENT CEREBRAL ISCHEMIC ATTACK, UNSPECIFIED (6) Diabetes mellitus Current Visit: Yes Status: Acute Code(s): E11.9 - TYPE 2 DIABETES MELLITUS WITHOUT COMPLICATIONS - Discharge Disposition: Home, Self-Care Condition: Stable Prescriptions: New Atorvastatin Calcium 80 mg PO DAILY 30 Days #30 tablet Aspirin EC 81 mg [Ecotrin 81 mg] 81 mg PO DAILY 21 Days #21 tablet Amlodipine Besylate 5 mg [Norvasc 5 mg] 5 mg PO QAM 30 Days #30 tablet Clopidogrel Bisulfate [PLAVIX Tablet] 75 mg PO DAILY 30 Days #30 tablet Quetiapine Fumarate [Seroquel] 25 mg PO QHS 30 Days #30 tablet Continue Loratadine 10 mg [Claritin 10 mg] 10 mg PO DAILY Cholecalciferol (Vitamin D3) [Vitamin D3] 1,000 unit PO DAILY Omeprazole 20 mg PO DAILY Insulin Lispro [Humalog] 100 unit SQ QIDPRN PRN PRN Reason: sliding scale Folic Acid 1 mg [Folate 1 mg] 1 mg PO DAILY Metformin HCl 500 mg [Glucophage 500 MG] 500 mg PO BIDWM Potassium Chloride 20 meq PO BID Additional Instructions: [facility] HAS BEEN SET UP. THEY WILL CONTACT YOU TO ARRANGE A TIME TO COME SEE YOU. THEIR PHONE NUMBER IS [phone] IF YOU NEED ANYTHING BEFORE THEIR FIRST VISIT Follow up with: SAMAN BARNETT [Primary Care Provider] - 08/13/23 9:15 am [facility] [Provider Group] - 1 Week (Cardiology - no known provider per daughter needs f/u for OP cardiac monitoring TTE)
[2023-07-31] MEDS: VITAMIN D PO SCH (09:24)
[2023-07-31] MEDS: Pepcid 20 MG PO SCH (09:25)
[2023-07-31] MEDS: ECOTRIN 81 MG PO SCH (09:25)
[2023-07-31] MEDS: NORVASC 5 MG PO SCH (09:25)
[2023-07-31] MEDS: Protonix 40MG Tablet PO SCH (09:25)
[2023-07-31] MEDS: CLARITIN 10 MG PO SCH (09:25)
[2023-07-31] MEDS: FOLATE 1 MG PO SCH (09:25)
[2023-07-31] MEDS: PLAVIX Tablet PO SCH (09:25)
[2023-07-31] MEDS: HUMULIN R SQ PRN (11:36)
[2023-07-31 12:11] VITALS: TEMP 97.1
[2023-07-31 16:17] VITALS: BP 146/77; PULSE 72; RESP 16; O2SAT 98
[2023-07-31] MEDS ORDERED: Seroquel 25 MG PO SCH (22:00)
[2023-07-31] MEDS ORDERED: Seroquel 25 MG PO ONE (22:00)
== END 2023-07-31 16:30 | disposition home health service (06) ==
LOC: ED 19:57 → MED SURG 07-29
PROVIDERS: ADMIT Internal Medicine Nephrology; ATTEND Internal Medicine Nephrology
DX: N17.9 Acute kidney failure, unspecified (principal); I12.9 Hypertensive chronic kidney disease with stage 1 through stage 4 chronic kidney disease, or unspecified chronic kidney disease; E11.22 Type 2 diabetes mellitus with diabetic chronic kidney disease; N18.4 Chronic kidney disease, stage 4 (severe); R79.89 Other specified abnormal findings of blood chemistry; E83.42 Hypomagnesemia; G45.9 Transient cerebral ischemic attack, unspecified; E78.5 Hyperlipidemia, unspecified; Z79.899 Other long term (current) drug therapy; Z20.828 Contact with and (suspected) exposure to other viral communicable diseases; Z86.73 Personal history of transient ischemic attack (TIA), and cerebral infarction without residual deficits; Z85.3 Personal history of malignant neoplasm of breast
CPT/HCPCS: 36000; 36415; 70450; 70544; 70547; 70551; 71046; 80053; 80061; 81001; 82570; 82947; 83036; 83721; 83735; 83935; 84156; 84300; 84439; 84443; 84484; 85025; 85027; 85610; 85730; 87086; 93005; 93041; 97161; 99284; Q3014; 93268; J1815; J3475; A9270-GY; G0378

== ENCOUNTER 2023-08-09 13:56 | Emergency (ER) | payer MEDICARE ==
[2023-08-09 14:16] VITALS: PULSE 95; TEMP 98.5; O2SAT 100
[2023-08-09] MEDS ORDERED: Xylocaine 2%-Epi 1:100,000 MDV IJ ONE (14:23)
[2023-08-09] MEDS ORDERED: Adacel Vial IM ONE ×2 (14:27→15:06)
[2023-08-09] MEDS ORDERED: TYLENOL 325 MG PO STA (14:27)
--- NOTE | 2023-08-09 14:42 | ERPHSYRPT ---
- History of Present Illness Time Seen by Provider: 08/09/23 13:58 Source: patient, family Exam Limitations: no limitations Patient Subjective Stated Complaint: pt tripped on the vacuum cord and hit the back of her head on the entertainment center causing a laceration, pt also c/o of right buttock pain Triage Nursing Assessment: Pt brought to the ER by her son, hypertensive, rates pain as 8/10, pt has some dementia, 3.5-4 cm laceration to the upper back of her head, still bleeding minimally, pt thinks she landed on her right buttock due to pain in it, denies any other injury, doesn't appear to be in any distress Physician History: 72 years old female with history of hypertension, hyperlipidemia, DM, recent TIA on aspirin/Plavix got tripped on vacuum cord while cleaning at home, fell backward and hit the corner of entertainment center prior to arrival. She has a laceration right posterior parietal area with bleeding initially but stopped with applying pressure. No loss of consciousness. She is complaining of dull aching pain mild to moderate in area of laceration. Denies any neck pain. No numbness tingling or focal weakness. She also hit of right buttock area and has mild pain with ambulation. Did not hit her chest, denies any feeling of dizziness lightheadedness chest pain palpitations or shortness of breath before or after the fall. Allergies/Adverse Reactions: diphenhydramine HCl [From Benadryl] Adverse Reaction (Mild, Verified 08/09/23 14:16) "itchy & red face" Home Medications: Cholecalciferol (Vitamin D3) [Vitamin D3] 1,000 unit PO DAILY 12/17/18 [History] Loratadine 10 mg [Claritin 10 mg] 10 mg PO DAILY 12/17/18 [History] Omeprazole 20 mg PO DAILY 12/23/18 [History] Folic Acid 1 mg [Folate 1 mg] 1 mg PO DAILY 04/27/21 [History] Insulin Lispro [Humalog] 100 unit SQ QIDPRN PRN 04/27/21 [History] Metformin HCl 500 mg [Glucophage 500 MG] 500 mg PO BIDWM 07/12/22 [History] Potassium Chloride 20 meq PO BID 07/28/23 [History] Hx Tetanus, Diphtheria Vaccination/Date Given: Yes Hx Influenza Vaccination/Date Given: Yes Hx Pneumococcal Vaccination/Date Given: Yes Travel Risk - International Travel Have you traveled outside of the country in past 3 weeks: No - Coronavirus Screening Are you exhibiting any of the following symptoms?: No Close contact with a COVID-19 positive Pt in past 14-21 Days: No - Vaccine Status Have you recieved a Covid-19 vaccination: Yes 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 - Vaccination Dates Dates if Unknown: unknown - Review of Systems Constitutional: No Symptoms Eyes: No Symptoms Ears, Nose, & Throat: No Symptoms Respiratory: No Symptoms Abdominal/Gastrointestinal: No Symptoms Genitourinary Symptoms: No Symptoms Musculoskeletal: Fall, Injury, Joint Pain Skin: No Symptoms, Skin Lesions Neurological: Headache Hematologic/Lymphatic: No Symptoms Immunological/Allergic: No Symptoms - Past Medical History Pertinent Past Medical History: Yes Neurological History: No Pertinent History ENT History: Cataracts Cardiac History: High Cholesterol, Hypertension Respiratory History: No Pertinent History Endocrine Medical History: Diabetes Type II Musculoskeletal History: Rheumatoid Arthritis, Other GI Medical History: GERD History: Renal Disease, Other Psycho-Social History: No Pertinent History Female Reproductive Disorders: Breast Cancer Other Medical History: 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, psoriatic arthritis - Past Surgical History Past Surgical History: Yes Neuro Surgical History: No Pertinent History Cardiac: No Pertinent History Respiratory: No Pertinent History Gastrointestinal: No Pertinent History Genitourinary: No Pertinent History Musculoskeletal: Orthopedic Surgery Female Surgical History: Section, Tubal Ligation Other Surgical History: left arm fx repair with hardware,breast cancer surgery,left rotator cuff, port placement and removal, left arm tanvir placed,c- sections times 2 - Social History Smoking Status: Never smoker Exposure to second hand smoke: No Drug Use: none Patient Lives Alone: No Significant Family History: no pertinent family hx - Nursing Vital Signs Nursing Vital Signs: Initial Vital Signs Temperature 98.5 F 08/09/23 14:04 Pulse Rate 95 H 08/09/23 14:04 Blood Pressure 150/82 08/09/23 14:04 O2 Sat by Pulse Oximetry 100 08/09/23 14:04 Pain Scale Pain Intensity 9 - [place] Coma Score Best Eye Response ([place]): (4) open spontaneously Best Verbal Response ([place]): (5) oriented Best Motor Response ([place]): (6) obeys commands [place] Total: 15 - Physical Exam General Appearance: no apparent distress Head Injury: lacerations (4 cm laceration right posterior parietal area with hematoma around. No step in deformity. No active spurting or oozing.), swelling, tenderness Eye Exam: bilateral eye: normal inspection, PERRL, EOMI ENT Exam: airway nml, No evidence of ENT injury, No dental injury Neck Exam: supple, trachea midline, full range of motion, normal alignment, normal inspection Cardiovascular/Respiratory Exam: chest non-tender, normal breath sounds, regular rate/rhythm Gastrointestinal/Abdominal Exam: soft, non tender, No no distention Back Exam: normal inspection, normal range of motion, No CVA tenderness Extremity Exam: normal range of motion, swelling (Tenderness/swelling right buttock area probably gluteus robert muscle.) 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 hearing, normal speech, PERRL Coordination/Gait Exam: normal finger to nose Motor/Sensory Exam: no motor deficit, no sensory deficit, no pronator drift Skin Exam: normal color SpO2 Interpretation: normal SpO2: 100 O2 Delivery: Room Air Procedures - Laceration/Wound Repair Right Parietal Time of Procedure: 14:40 Wound Location: Right (Posterior parietal) Wound Length (cm): 4 Wound's Depth, Shape: superficial, linear Wound Explored: clean Irrigated: Yes Hibiclens Prep: Yes Anesthesia: 1% lidocaine w/ Epi Volume Anesthetic (ccs): 5 Wound Repaired With: Independence Number of Sutures: 6 Layer Closure?: No Ordered Tests: Active Orders 24 hr Category Date Time Status CERVICAL SPINE WO CONTRAST [CT] Stat Exams 08/09/23 14:26 Completed HEAD WITHOUT CONTRAST [CT] Stat Exams 08/09/23 14:26 Completed PELVIS WITHOUT CONTRAST [CT] Stat Exams 08/09/23 14:26 Completed Medication Summary Discontinued Medications Generic Name Dose Route Start Last Admin Trade Name Alea PRN Reason Stop Dose Admin Acetaminophen 975 mg 08/09/23 14:27 08/09/23 15:13 Acetaminophen 325 Mg Tablet PO 08/09/23 14:28 975 mg STAT STA Administration Acetaminophen Confirm 08/09/23 15:06 Acetaminophen 325 Mg Tablet Administered 08/09/23 15:07 Dose 975 mg .ROUTE .STK-MED ONE Diphtheria/Tetanus/Acell Pertussis 0.5 ml 08/09/23 14:27 08/09/23 15:12 Tdap --Diph,Pertuss(Acell),Tet Vac/Pf 0.5 Ml Vial IM 08/09/23 14:28 0.5 ml .ONCE ONE Administration Diphtheria/Tetanus/Acell Pertussis Confirm 08/09/23 15:06 Tdap --Diph,Pertuss(Acell),Tet Vac/Pf 0.5 Ml Vial Administered 08/09/23 15:07 Dose 0.5 ml IM .STK-MED ONE Lidocaine/Epinephrine Confirm 08/09/23 14:23 Lidocaine Hcl/Epinephrine 2% 20 Ml Mdv Administered 08/09/23 14:24 Dose 5 ml IJ .STK-MED ONE - Progress Progress: improved Progress Note: 08/09/23 15:54 72 years old female with history of hypertension, hyperlipidemia, DM, recent TIA on aspirin/Plavix got tripped on vacuum cord while cleaning at home, fell backward and hit the corner of [employer] [place] prior to arrival. She has a laceration right posterior parietal area with bleeding initially but stopped with applying pressure. No loss of consciousness. She is complaining of dull aching pain mild to moderate in area of laceration. Denies any neck pain. No numbness tingling or focal weakness. She also hit of right buttock area and has mild pain with ambulation. Did not hit her chest, denies any feeling of dizziness lightheadedness chest pain palpitations or shortness of breath before or after the fall. She has a nonfocal neuroexam throughout her stay in the ER. It was a clear mechanical fall, do not think needs any workup but imaging. CT head and cervical spine are negative for any acute trauma related findings. CT pelvis negative for acute fracture dislocation. Patient does have some swelling/edema of the right gluteus robert area which I do not think it is related to this fall but she had it before as well. She needs to have outpatient follow-up for that for further evaluation with possible MRI. I will refer her to orthopedics for that. Laceration of scalp was repaired. She is given Tylenol for symptomatic relief and feeling much better on reevaluation. I do not think she needs any other workup and is stable for discharge. Discussed with patient and family about signs symptoms of worsening/head injury and needing return to ER which they seem understanding. Counseled pt/family regarding: diagnosis, need for follow-up, rad results Medical Desision Making - Independent Historian Additional History obtained from: Child - Diagnostic Testing Diagnostic test were ordered, analyzed, and reviewed by me: Yes Radiological Interpretation: Reviewed by me - Risk of complications The pt has a mod risk of morbidity or mortality based on: Need for minor surgical intervention in patient with know risk factors - Departure Departure Disposition: Home Clinical Impression: Scalp laceration, Fall, Muscle strain of right gluteal region Condition: Stable Critical Care Time: No Referrals: SAMAN BARNETT [Primary Care Provider] - Follow Up with PCP/3 days JACKY - MARIA C WILKS NP [NON-STAFF PHY W/O PRIVILEGES] - Follow up/PCP as directed (In 3 days for reevaluation) Instructions: Laceration Repair With Jamari (DC), Head Injury Observation (DC) Additional Instructions: Take Tylenol as needed. Intermittent ice application. Stay with responsible person for next 48 hours with frequent neurochecks. Follow-up with orthopedic surgery for reevaluation of right hip pain/swelling which needs further evaluation. Follow head injury instructions and return to ER for any worsening. Staple removal in 10 to 14 days.
[2023-08-09] MEDS ORDERED: TYLENOL 325 MG ONE (15:06)
[2023-08-09 15:27] VITALS: BP 121/77
--- NOTE | 2023-08-09 15:37 | XRAY ---
Indication: Status post fall. Laceration. Multiple contiguous axial images obtained through the head without contrast. Comparison: July 28, 2023 Again age-appropriate global atrophy, moderate periventricular degenerative micro-ischemia bilaterally, and bilateral basal ganglia remote lacunar infarcts. No acute intracranial hemorrhage, abnormal extra-axial fluid collection, or mass effect. Fourth that was midline without hydrocephalus. Bony calvarium intact. Visualized paranasal sinuses and mastoid air cells are clear. Impression: Continued nonacute senile brain with remote basal ganglia remote lacunar infarcts.
--- NOTE | 2023-08-09 15:43 | XRAY ---
Indication: Pain following fall. Multiple contiguous axial images obtained through the cervical spine. Sagittal and coronal reformatted images obtained. Comparison: None Age-related osteopenia. Axial images negative for acute fracture, suspicious bony lesions, or spinal canal stenosis. Moderate/advanced multilevel degenerative disc disease greatest at C4-C6 levels. Also moderate atlantoaxial degenerative changes. Sagittal and coronal reformatted images demonstrates lordotic straightening, positional versus paraspinal spasm. C4-C7 degenerative disc space loss. No acute compression fracture, subluxation or jumped facet. Normal appearing craniocervical junction. Visualized noncontrasted soft tissues demonstrates diffuse scattered bilateral carotid calcifications. Lung apices clear. Impression: 1. Cervical lordotic straightening, positional versus paraspinal spasm. 2. Negative acute fracture/subluxation. 3. Osteopenia and multilevel degenerative changes.
--- NOTE | 2023-08-09 15:49 | XRAY ---
Indication: Pain following fall. Multiple contiguous axial images through the pelvis with special attention to the osseous structures. Sagittal and coronal reformatted images obtained. Comparison: None Osseous structures demineralized. No acute fracture, dislocation, or suspicious bone lesions. Moderate degenerative changes visualized lower lumbar spine, both SI joints, and both hips. Left innominate bone demonstrates remote bone graft defects Visualized noncontrasted soft tissues demonstrates right gluteal robert edema/swelling presumed posttraumatic. Mild diffuse colonic fecal debris best seen on toposcan. Incidental small fatty umbilical hernia, moderate scattered arteriosclerotic calcifications, and small fatty left inguinal hernia. Impression: 1. Negative acute fracture/dislocation. 2. Right gluteal robert soft tissue swelling/edema. 3. Chronic findings including osteopenia, degenerative changes, arteriosclerotic disease, fatty umbilical hernia, and fatty left inguinal hernia. 4. Incidental diffuse fecal stasis.
== END 2023-08-09 16:25 | disposition home or self-care (01) ==
LOC: ED 13:56
DX: S01.01XA Laceration without foreign body of scalp, initial encounter (principal); S76.811A Strain of other specified muscles, fascia and tendons at thigh level, right thigh, initial encounter; W01.190A Fall on same level from slipping, tripping and stumbling with subsequent striking against furniture, initial encounter; Y93.E3 Activity, vacuuming; R51.9 Headache, unspecified; I12.9 Hypertensive chronic kidney disease with stage 1 through stage 4 chronic kidney disease, or unspecified chronic kidney disease; E11.22 Type 2 diabetes mellitus with diabetic chronic kidney disease; N18.4 Chronic kidney disease, stage 4 (severe); E78.5 Hyperlipidemia, unspecified; Z79.02 Long term (current) use of antithrombotics/antiplatelets; Z79.4 Long term (current) use of insulin; Z79.84 Long term (current) use of oral hypoglycemic drugs; Z79.899 Other long term (current) drug therapy; Z23 Encounter for immunization
CPT/HCPCS: 12002; 70450; 72125; 72192; 90471; 90715; 99283; A9270-GY

== ENCOUNTER 2024-12-14 20:22 | Inpatient (IN) | payer MEDICARE ==
[2024-12-14] MEDS ORDERED: Zofran 4 MG/2 ML VIAL ONE (20:48)
[2024-12-14] MEDS ORDERED: MORPHINE SULFATE 2 MG INJ ONE ×2 (20:49→22:25)
[2024-12-14] MEDS: Zofran 4 MG/2 ML VIAL IV ONE (20:50)
[2024-12-14] MEDS: MORPHINE SULFATE 2 MG INJ IV ONE ×2 (20:51→22:26)
[2024-12-14 20:57] LABS: Absolute Neutrophil Ct (ANC) 16.52 x10^3/uL (1.56-6.13); BASOPHIL % 0.7 % (0.1-1.2); Basophil (Absolute #) 0.13 x10^3/uL (0.01-0.08); Eosinophil % 0.7 % (0.7-5.8); Eosinophil (Absolute #) 0.14 x10^3/uL (0.04-0.36); Hematocrit 28.4 % (34.1-44.9); Hemoglobin 8.8 g/dL (11.2-15.7); IMMATURE GRAN # 0.16 x10^3u/L (0.001-0.031); IMMATURE GRAN % 0.8 % (0.001-0.429); Lymphocyte (Absolute #) 1.35 x10^3/uL (1.18-3.74); Mean Cell Volume 86.1 fL (79.4-94.8); Mean Corpuscular Hemoglobin 26.7 pg (25.6-32.2); Mean Platelet Volume 10.6 fL (9.4-12.3); Monocyte (Absolute #) 1.08 x10^3/uL (0.24-0.86); Monocytes % 5.6 % (4.7-12.5); Neutrophil % 85.2 % (34.0-71.1); Platelet Count 237 x10^3/uL (182-369); Red Cell Distribution Width 14.5 % (11.7-14.4); White Blood Count 19.4 x10^3/uL (3.98-10.04)
[2024-12-14 21:12] LABS: ALBUMIN 3.6 g/dL (3.5-5.0); ANION GAP 17.6 MEQ/L (5-15); BILIRUBIN,TOTAL 0.7 mg/dL (0.2-1.3); Calcium 8.9 mg/dL (8.4-10.2); Creatinine 1 1.25 mg/dL (0.52-1.04); Total Protein 7.1 g/dL (6.3-8.2)
[2024-12-14] MEDS ORDERED: MORPHINE SULFATE 4 MG INJ ONE (21:38)
[2024-12-14] MEDS: MORPHINE SULFATE 4 MG INJ IV ONE (21:40)
[2024-12-14 21:57] LABS: Appearance Clear (Clear); Bacteria Few /HPF (None Seen); Bilirubin Negative (Negative); Blood Moderate (Negative); Epithelial Cells None Seen /HPF (None Seen); Glucose, Urine 500 mg/dL (Negative); Hyaline Casts NONE SEEN /LPF (0-2); Ketones Negative (Negative); Leukocyte Esterase Negative (Negative); Nitrite Negative (Negative); Ph 6.5 (4.6-8.0); Protein,Urine Dip 300 (Negative); RBC 0-2 /HPF (0-5)
--- NOTE | 2024-12-14 23:06 | ERPHSYRPT ---
- History of Present Illness Time Seen by Provider: 12/14/24 20:40 Source: patient Exam Limitations: no limitations Patient Subjective Stated Complaint: "I was at the fridge and I fell to the ground. I can't move my leg". Triage Nursing Assessment: Pt presents to ER with complaints of left hip/leg pain that occurred just [employer] after experiencing a fall at home. She stated she was trying to open the fridge and slid to the floor. After the fall is when her pain began. Pt is unable to bare weight on left leg. Complains of thigh/hip pain 10/10 scale. Pt is alert and able to answer most questions appropriately. Family at bedside. Pt lives with daughter and states uses cane/walker to ambulate, when needed. Pt appears in pain and had to be lifted from wheelchair to bed. Respirations are easy. Denies any LOC or other injuries. States is scheduled for biospy of left breast this week (hx of breast CA, has palpable mass in left breast as well as lymph edema to left arm). Physician History: Patient is a 74-year-old female history of diabetes hypertension and breast cancer presents to our ED for evaluation of left hip pain. Patient reports she was at home in her kitchen. Patient was opening the refrigerator door when she fell backwards into the island of the kitchen. Patient then fell to the floor. Patient experienced immediate pain at her left hip. The fall was not associated with any neuro or cardiovascular symptomology. No associated chest pain or shortness of breath. No nausea vomiting or diaphoresis. No numbness tingling or weakness. Patient rates her pain 10 out of 10. No other injuries reported. No BHT or LOC. No neck pain. Cervical spine cleared clinically. Daughter at bedside. She reports that patient is normally independent on a cane occasionally uses a walker. Patient's left hip pain is worse with movement and palpation. Pain improves with rest. Patient otherwise feels well. She voices no other complaints or concerns at this time. Portions of this note were created with voice recognition technology. There may be grammatical, spelling, punctuation or sound alike errors Timing/Duration: today Severity: moderate Modifying Factors: Improves With: movement Associated Symptoms: denies symptoms Allergies/Adverse Reactions: diphenhydramine HCl [From Benadryl] Adverse Reaction (Mild, Verified 12/14/24 20:47) "itchy & red face" Home Medications: Cholecalciferol (Vitamin D3) [Vitamin D3] 1,000 unit PO DAILY 12/17/18 [History] Loratadine 10 mg [Claritin 10 mg] 10 mg PO DAILY 12/17/18 [History] Omeprazole 20 mg PO DAILY 12/23/18 [History] Folic Acid 1 mg [Folate 1 mg] 1 mg PO DAILY 04/27/21 [History] Insulin Lispro [Humalog] 100 unit SQ QIDPRN PRN 04/27/21 [History] Metformin HCl 500 mg [Glucophage 500 MG] 500 mg PO BIDWM 07/12/22 [History] Hx Tetanus, Diphtheria Vaccination/Date Given: Yes Hx Influenza Vaccination/Date Given: No Hx Pneumococcal Vaccination/Date Given: No Travel Risk - International Travel Have you traveled outside of the country in past 3 weeks: No - Emerging Infectious Disease Are you exhibiting symptoms associated with any current EIDs: No - Review of Systems Constitutional: No Symptoms, No Fever, No Chills Eyes: No Symptoms Ears, Nose, & Throat: No Symptoms Respiratory: No Symptoms, No Cough, No Dyspnea Cardiac: No Symptoms, No Chest Pain, No Edema, No Syncope Abdominal/Gastrointestinal: No Symptoms, No Abdominal Pain, No Nausea, No Vomiting, No Diarrhea Genitourinary Symptoms: No Symptoms, No Dysuria Musculoskeletal: No Symptoms, No Back Pain, No Neck Pain Skin: No Symptoms, No Rash Neurological: No Symptoms, No Dizziness, No Focal Weakness, No Sensory Changes Psychological: No Symptoms Endocrine: No Symptoms Hematologic/Lymphatic: No Symptoms Immunological/Allergic: No Symptoms All Other Systems: Reviewed and Negative - Past Medical History Pertinent Past Medical History: Yes Neurological History: No Pertinent History ENT History: Cataracts Cardiac History: High Cholesterol, Hypertension Respiratory History: No Pertinent History Endocrine Medical History: Diabetes Type II Musculoskeletal History: Rheumatoid Arthritis, Other GI Medical History: GERD History: Renal Disease, Other Psycho-Social History: No Pertinent History Female Reproductive Disorders: Breast Cancer Other Medical History: 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, psoriatior arthritis - Past Surgical History Past Surgical History: Yes Neuro Surgical History: No Pertinent History Cardiac: No Pertinent History Respiratory: No Pertinent History Gastrointestinal: No Pertinent History Genitourinary: No Pertinent History Musculoskeletal: Orthopedic Surgery Female Surgical History: Section, Tubal Ligation Other Surgical History: left arm fx repair with hardware,breast cancer surgery,left rotator cuff, port placement and removal, left arm tanvir placed,c- sections times 2 Significant Family History: no pertinent family hx - Social History Smoking Status: Never smoker Exposure to second hand smoke: No Drug Use: none - Social Determinants of Health Will the patient participate in the screening: Yes Do you worry about a steady place to live?: No Do you have any problems with any of the following?: No known problems In the past 12 months,have you had to go without utilities?: No Transportation Issues: No Has anyone in your support network made you feel unsafe?: No Have you or anyone in your house had to go w/o enough food: No - Nursing Vital Signs Nursing Vital Signs: Initial Vital Signs Temperature 97.7 F 12/14/24 20:33 Pulse Rate 74 12/14/24 20:33 Respiratory Rate 18 12/14/24 20:33 Blood Pressure 198/78 12/14/24 20:33 O2 Sat by Pulse Oximetry 99 12/14/24 20:33 Pain Scale Pain Intensity 4 - Physical Exam General Appearance: no apparent distress, alert Eye Exam: PERRL/EOMI, eyes nml inspection Ears, Nose, Throat Exam: normal ENT inspection, moist mucous membranes Neck Exam: normal inspection, full range of motion Respiratory Exam: normal breath sounds, lungs clear, airway intact, No respiratory distress Cardiovascular Exam: regular rate/rhythm, normal heart sounds, normal peripheral pulses Gastrointestinal/Abdomen Exam: soft, normal bowel sounds, No tenderness, No mass Back Exam: normal inspection, normal range of motion, No CVA tenderness, No vertebral tenderness Extremity Exam: normal inspection, normal range of motion, pelvis stable, other (Left lower extremity is neurovascular intact distally compartments are soft cap refill less than 2 seconds. Tenderness to palpation at the anterolateral left hip. Overlying soft tissue intact. No open or draining lesions.) Neurologic Exam: alert, oriented x 3, cooperative, normal mood/affect, sensation nml, No motor deficits Skin Exam: normal color, warm, dry, No rash Lymphatic Exam: No adenopathy SpO2 Interpretation: normal SpO2: 93 O2 Delivery: Room Air - Course Nursing assessment & vital signs reviewed: Yes - CT Exams Lower Extremity CT Interpretation: Tele-radiologist Report (Comminuted impacted left intertrochanteric fracture) Ordered Tests: Active Orders 24 hr Category Date Time Status LOWER EXTREMITY WO CONTRAST [CT] Stat Exams 12/14/24 20:45 Taken PELVIS WITHOUT CONTRAST [CT] Stat Exams 12/14/24 21:12 Taken CBC W DIFF Stat Lab 12/14/24 20:55 Completed CMP Stat Lab 12/14/24 20:55 Completed CULTURE,URINE Stat Lab 12/14/24 21:36 Received UA W/RFX UR CULTURE Stat Lab 12/14/24 21:36 Completed Transfer Order Routine Transfer 12/14/24 Ordered Medication Summary Generic Name Dose Route Start Last Admin Trade Name Freq PRN Reason Stop Dose Admin Ceftriaxone Sodium 1 gm in 100 mls @ 200 mls/hr 12/14/24 23:08 12/14/24 23:14 Rocephin 1 Gm / 100 Ml Nacl IV 12/14/24 23:37 200 mls/hr STAT ONE 200 mls/hr Administration Discontinued Medications Generic Name Dose Route Start Last Admin Trade Name Freq PRN Reason Stop Dose Admin Ceftriaxone Sodium Confirm 12/14/24 23:12 Rocephin 1 Gm / 100 Ml Nacl Administered 12/14/24 23:13 Dose 1 gm in 100 mls @ ud IV .STK-MED ONE Morphine Sulfate 2 mg 12/14/24 20:46 12/14/24 20:51 Morphine Sulfate 2 Mg/Ml Inj IV 12/14/24 20:47 2 mg STAT ONE Administration Morphine Sulfate Confirm 12/14/24 20:49 Morphine Sulfate 2 Mg/Ml Inj Administered 12/14/24 20:50 Dose 2 mg .ROUTE .STK-MED ONE Morphine Sulfate 4 mg 12/14/24 21:37 12/14/24 21:40 Morphine Sulfate 4 Mg/Ml Injection IV 12/14/24 21:38 4 mg STAT ONE Administration Morphine Sulfate Confirm 12/14/24 21:38 Morphine Sulfate 4 Mg/Ml Injection Administered 12/14/24 21:39 Dose 4 mg .ROUTE .STK-MED ONE Morphine Sulfate 2 mg 12/14/24 22:12 12/14/24 22:26 Morphine Sulfate 2 Mg/Ml Inj IV 12/14/24 22:13 2 mg STAT ONE Administration Morphine Sulfate Confirm 12/14/24 22:25 Morphine Sulfate 2 Mg/Ml Inj Administered 12/14/24 22:26 Dose 2 mg .ROUTE .STK-MED ONE Ondansetron HCl 4 mg 12/14/24 20:46 12/14/24 20:50 Ondansetron Hcl 4 Mg/2 Ml Vial IV 12/14/24 20:47 4 mg STAT ONE Administration Ondansetron HCl Confirm 12/14/24 20:48 Ondansetron Hcl 4 Mg/2 Ml Vial Administered 12/14/24 20:49 Dose 4 mg .ROUTE .[facility] ONE Lab/Rad Data: Laboratory Result Diagrams 12/14/24 20:55 12/14/24 20:55 Laboratory Results 12/14/24 12/14/24 12/14/24 Range/Units 21:36 20:55 20:55 WBC 19.4 H (3.98-10.04) x10^3/uL RBC 3.30 L (3.93-5.22) x10^6/uL Hgb 8.8 L (11.2-15.7) g/dL Hct 28.4 L (34.1-44.9) % MCV 86.1 (79.4-94.8) fL MCH 26.7 (25.6-32.2) pg MCHC 31.0 L (32.2-35.5) g/dL RDW 14.5 H (11.7-14.4) % Plt Count 237 (182-369) x10^3/uL MPV 10.6 (9.4-12.3) fL Gran % 85.2 H (34.0-71.1) % Immature Gran % (Auto) 0.8 H (0.001-0.429) % Nucleat RBC Rel Count 0.0 (0.00-0.2) % Eos # (Auto) 0.14 (0.04-0.36) x10^3/uL Immature Gran # (Auto) 0.16 H (0.001-0.031) x10^3u/L Absolute Lymphs (auto) 1.35 (1.18-3.74) x10^3/uL Absolute Monos (auto) 1.08 H (0.24-0.86) x10^3/uL Absolute Nucleated RBC 0.00 (0.00-0.012) x10^3u/L Lymphocytes % 7.0 L (19.3-51.7) % Monocytes % 5.6 (4.7-12.5) % Eosinophils % 0.7 (0.7-5.8) % Basophils % 0.7 (0.1-1.2) % Absolute Granulocytes 16.52 H (1.56-6.13) x10^3/uL Basophils # 0.13 H (0.01-0.08) x10^3/uL Sodium 135 (135-145) mmol/L Potassium 5.0 (3.5-5.1) mmol/L Chloride 97 L (98-107) mmol/L Carbon Dioxide 25 (22-30) mmol/L Anion Gap 17.6 H (5-15) MEQ/L BUN 28 H (7-17) mg/dL Creatinine 1.25 H (0.52-1.04) mg/dL Estimated GFR 45.0 ML/MIN Glucose 305 H (74-106) mg/dL Calcium 8.9 (8.4-10.2) mg/dL Total Bilirubin 0.70 (0.2-1.3) mg/dL AST 106 H (14-36) U/L ALT 61 H (0-35) U/L Alkaline Phosphatase 369 H (38-126) U/L Serum Total Protein 7.1 (6.3-8.2) g/dL Albumin 3.6 (3.5-5.0) g/dL Urine Color Yellow (Yellow) Urine Appearance Clear (Clear) Urine pH 6.5 (4.6-8.0) Ur Specific [place] 1.020 (1.005-1.030) Urine Protein 300 A (Negative) Urine Glucose (UA) 500 A (Negative) mg/dL Urine Ketones Negative (Negative) Urine Blood Moderate A (Negative) Urine Nitrite Negative (Negative) Urine Bilirubin Negative (Negative) Urine Urobilinogen 1.0 A (0.2) mg/dL Ur Leukocyte Esterase Negative (Negative) U Hyaline Cast (Auto) NONE SEEN (0-2) /LPF Urine Microscopic RBC 0-2 (0-5) /HPF Urine Microscopic WBC 6-10 A (0-5) /HPF Ur Epithelial Cells None Seen (None Seen) /HPF Urine Bacteria Few A (None Seen) /HPF Urine Culture Reflexed YES (NO) - Progress Progress: improved Progress Note: I spoke to Dr. Thompson at 10:[address] Thompson accepts consultation. Patient to be admitted to hospitalist. 74-year-old female presents for emergency department for evaluation of pain to her left hip after a fall at home. Physical exam reveals tenderness to palpation at the left hip. The involved left lower extremity is neurovascular tact distally compartments are soft cap refill less than [address] scan reveals a comminuted impacted left intertrochanteric fracture. Laboratory workup reveals a hemoglobin of 8.8. Type and screen ordered in preparation for surgery. Patient has a leukocytosis of 19,000. It is unclear the cause or source of this leukocytosis however patient does have a urinary tract infection. Antibiotics administered. Patient will be admitted for further evaluation and treatment. Portions of this note were created with voice recognition technology. There may be grammatical, spelling, punctuation or sound alike errors Complexity of problem addressed is moderate acute complicated. No critical care time. Complex of data reviewed and analyzed is extensive. Test ordered chest reviewed results analyzed and correlated clinically with history and physical exam. Management discussed with orthopedic surgeon. Risk of complication and or risk of morbidity/mortality of patient management is high. Patient requires hospitalization for further evaluation and treatment. Vital stable. Time spent to admit patient is approximately 15 minutes. Plan of care established for shared decision making. No social determinants of health present to impede follow-up. Patient accepted by at 11:25 PM. 12/14/24 23:28 Counseled pt/family regarding: lab results, diagnosis, rad results - Departure Departure Disposition: Observation Clinical Impression: Fall, UTI (urinary tract infection), Intertrochanteric fracture of left femur Condition: Stable Critical Care Time: No Referrals: SAMAN BARNETT [Primary Care Provider] - Follow up/PCP as directed
[2024-12-14] MEDS ORDERED: ROCEPHIN 1 GM / 100 ML NaCl 1 GM/100 ML IVPB IV ONE (23:12)
[2024-12-14] MEDS: ROCEPHIN 1 GM / 100 ML NaCl 1 GM/100 ML IVPB IV ONE (23:14)
[2024-12-15] MEDS ORDERED: TYLENOL 325 MG PO PRN (00:05)
[2024-12-15 00:29] LABS: ABO TYPING A; Antibody Screen NEGATIVE (NEGATIVE); RH TYPING POSITIVE
--- NOTE | 2024-12-15 02:02 | PCM.HP ---
History of Present Illness - Chief Complaint Chief Complaint: fall Date: 12/15/24 History of Present Illness: 74-year-old woman with history of type 2 diabetes, hypertension, CKD stage III, TIA, who is here after a fall with left hip fracture. Patient was attempting to open refrigerator door, but she was wearing slick socks. She fell backward landing onto the island in the kitchen, and on the floor. Afterwards had severe pain over her left hip. She cannot remember the exact mechanism of the fall, but does not think that she hit her head, and denies any headache or loss of consciousness. Denies any dizziness or lightheadedness prior to the fall. Denies diarrhea or dysuria. Denies fevers, headaches, chest pain, cough, dyspnea, abdominal pain, or nausea. - Review of Systems All Other Systems: Reviewed and Negative Medications & Allergies Home Medications: Home Medication List Cholecalciferol (Vitamin D3) [Vitamin D3] 1,000 unit PO DAILY 12/17/18 [History Confirmed 12/14/24] Loratadine 10 mg [Claritin 10 mg] 10 mg PO DAILY 12/17/18 [History Confirmed 12/14/24] Omeprazole 20 mg PO DAILY 12/23/18 [History Confirmed 12/14/24] Folic Acid 1 mg [Folate 1 mg] 1 mg PO DAILY 04/27/21 [History Confirmed 12/14/24] Insulin Lispro [Humalog] 100 unit SQ QIDPRN PRN 04/27/21 [History Confirmed 12/14/24] Metformin HCl 500 mg [Glucophage 500 MG] 500 mg PO BIDWM 07/12/22 [History Confirmed 12/14/24] Amlodipine Besylate 5 mg [Norvasc 5 mg] 5 mg PO QAM 30 Days #30 tablet 07/31/23 [Rx Confirmed 12/14/24] Atorvastatin Calcium 80 mg PO DAILY 30 Days #30 tablet 07/31/23 [Rx Confirmed 12/14/24] Clopidogrel Bisulfate [PLAVIX Tablet] 75 mg PO DAILY 30 Days #30 tablet 07/31/23 [Rx Confirmed 12/14/24] Quetiapine Fumarate [Seroquel] 25 mg PO QHS 30 Days #30 tablet 07/31/23 [Rx Confirmed 12/14/24] Allergies/Adverse Reactions: Allergies Allergy/AdvReac Type Severity Reaction Status Date / Time diphenhydramine HCl AdvReac Mild "itchy & Verified 12/14/24 20:47 [From Benadryl] red face" - Past Medical History Past Medical History: Yes Neurological History: No Pertinent History ENT History: Cataracts Cardiac History: High Cholesterol, Hypertension Respiratory History: No Pertinent History Endocrine Medical History: Diabetes Type II Musculoskelatal History: Rheumatoid Arthritis, Other GI Medical History: GERD History: Renal Disease, Other Pyscho-Social History: No Pertinent History Reproductive Disorders: Breast Cancer Comment: 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, psoriatior arthritis - Past Surgical History Past Surgical History: Yes Neuro Surgical History: No Pertinent History Cardiac History: No Pertinent History Respiratory Surgery: No Pertinent History GI Surgical History: No Pertinent History Genitourinary Surgical Hx: No Pertinent History Musculskeletal Surgical Hx: Orthopedic Surgery Female Surgical History: Section, Tubal Ligation Other Surgical History: left arm fx repair with hardware,breast cancer surgery,left rotator cuff, port placement and removal, left arm tanvir placed,c- sections times 2 Significant Family History: no pertinent family hx - Social History Smoking Status: Never smoker Exposure to second hand smoke: No Alcohol: None Drug Use: none - Social Determinants of Health Will the patient participate in the screening: Yes Do you worry about a steady place to live?: No Do you have any problems with any of the following?: No known problems In the past 12 months,have you had to go without utilities?: No Have you or anyone in your house had to go without enough: No Transportation Issues: No Has anyone in your support network made you feel unsafe?: No Does the patient want assistance with any of the above?: No - Physical Exam Vital Signs: Vital Signs - 24 hr Temp Pulse Resp BP BP Pulse Ox 12/15/24 00:39 97.3 F 69 20 188/86 98 12/15/24 00:29 97.3 F 69 20 188/86 98 12/14/24 23:28 93 L 12/14/24 23:00 67 12 187/97 100 12/14/24 22:30 68 12 161/77 99 12/14/24 22:01 74 18 195/105 93 L 12/14/24 21:36 71 18 213/73 100 12/14/24 21:22 77 16 100 12/14/24 20:33 97.7 F 74 18 198/78 99 Physical Exam GEN: Sitting up in bed in no acute distress. HENT: Normocephalic, atraumatic. Moist mucous membranes. EYES: Normal inspection, anicteric sclera, extraocular movements intact. NECK: Supple, full range of motion CV: Regular rate and rhythm, no murmurs, no gallops. No JVD or edema. PULM: Clear to auscultation bilaterally, no work of breathing. On room air. ABD: Nondistended, nontender. MSK: Tender over left hip SKIN: No rashes, normal color. NEURO: Face symmetric, no focal motor or sensory deficits. PSYCH: Alert, oriented x 3 Results - Labs Lab/Micro Results: Lab Results-Last 24 Hours 12/14/24 12/14/24 12/14/24 Range/Units 20:55 20:55 21:36 WBC 19.4 H (3.98-10.04) x10^3/uL RBC 3.30 L (3.93-5.22) x10^6/uL Hgb 8.8 L (11.2-15.7) g/dL Hct 28.4 L (34.1-44.9) % MCV 86.1 (79.4-94.8) fL MCH 26.7 (25.6-32.2) pg MCHC 31.0 L (32.2-35.5) g/dL RDW 14.5 H (11.7-14.4) % Plt Count 237 (182-369) x10^3/uL MPV 10.6 (9.4-12.3) fL Gran % 85.2 H (34.0-71.1) % Immature Gran % (Auto) 0.8 H (0.001-0.429) % Nucleat RBC Rel Count 0.0 (0.00-0.2) % Eos # (Auto) 0.14 (0.04-0.36) x10^3/uL Immature Gran # (Auto) 0.16 H (0.001-0.031) x10^3u/L Absolute Lymphs (auto) 1.35 (1.18-3.74) x10^3/uL Absolute Monos (auto) 1.08 H (0.24-0.86) x10^3/uL Absolute Nucleated RBC 0.00 (0.00-0.012) x10^3u/L Lymphocytes % 7.0 L (19.3-51.7) % Monocytes % 5.6 (4.7-12.5) % Eosinophils % 0.7 (0.7-5.8) % Basophils % 0.7 (0.1-1.2) % Absolute Granulocytes 16.52 H (1.56-6.13) x10^3/uL Basophils # 0.13 H (0.01-0.08) x10^3/uL Sodium 135 (135-145) mmol/L Potassium 5.0 (3.5-5.1) mmol/L Chloride 97 L (98-107) mmol/L Carbon Dioxide 25 (22-30) mmol/L Anion Gap 17.6 H (5-15) MEQ/L BUN 28 H (7-17) mg/dL Creatinine 1.25 H (0.52-1.04) mg/dL Estimated GFR 45.0 ML/MIN Glucose 305 H (74-106) mg/dL Calcium 8.9 (8.4-10.2) mg/dL Total Bilirubin 0.70 (0.2-1.3) mg/dL AST 106 H (14-36) U/L ALT 61 H (0-35) U/L Alkaline Phosphatase 369 H (38-126) U/L Serum Total Protein 7.1 (6.3-8.2) g/dL Albumin 3.6 (3.5-5.0) g/dL Urine Color Yellow (Yellow) Urine Appearance Clear (Clear) Urine pH 6.5 (4.6-8.0) Ur Specific [place] 1.020 (1.005-1.030) Urine Protein 300 A (Negative) Urine Glucose (UA) 500 A (Negative) mg/dL Urine Ketones Negative (Negative) Urine Blood Moderate A (Negative) Urine Nitrite Negative (Negative) Urine Bilirubin Negative (Negative) Urine Urobilinogen 1.0 A (0.2) mg/dL Ur Leukocyte Esterase Negative (Negative) U Hyaline Cast (Auto) NONE SEEN (0-2) /LPF Urine Microscopic RBC 0-2 (0-5) /HPF Urine Microscopic WBC 6-10 A (0-5) /HPF Ur Epithelial Cells None Seen (None Seen) /HPF Urine Bacteria Few A (None Seen) /HPF Urine Culture Reflexed YES (NO) ABO Group Rh Factor Antibody Screen (NEGATIVE) 12/14/24 Range/Units 23:35 WBC (3.98-10.04) x10^3/uL RBC (3.93-5.22) x10^6/uL Hgb (11.2-15.7) g/dL Hct (34.1-44.9) % MCV (79.4-94.8) fL MCH (25.6-32.2) pg MCHC (32.2-35.5) g/dL RDW (11.7-14.4) % Plt Count (182-369) x10^3/uL MPV (9.4-12.3) fL Gran % (34.0-71.1) % Immature Gran % (Auto) (0.001-0.429) % Nucleat RBC Rel Count (0.00-0.2) % Eos # (Auto) (0.04-0.36) x10^3/uL Immature Gran # (Auto) (0.001-0.031) x10^3u/L Absolute Lymphs (auto) (1.18-3.74) x10^3/uL Absolute Monos (auto) (0.24-0.86) x10^3/uL Absolute Nucleated RBC (0.00-0.012) x10^3u/L Lymphocytes % (19.3-51.7) % Monocytes % (4.7-12.5) % Eosinophils % (0.7-5.8) % Basophils % (0.1-1.2) % Absolute Granulocytes (1.56-6.13) x10^3/uL Basophils # (0.01-0.08) x10^3/uL Sodium (135-145) mmol/L Potassium (3.5-5.1) mmol/L Chloride (98-107) mmol/L Carbon Dioxide (22-30) mmol/L Anion Gap (5-15) MEQ/L BUN (7-17) mg/dL Creatinine (0.52-1.04) mg/dL Estimated GFR ML/MIN Glucose (74-106) mg/dL Calcium (8.4-10.2) mg/dL Total Bilirubin (0.2-1.3) mg/dL AST (14-36) U/L ALT (0-35) U/L Alkaline Phosphatase (38-126) U/L Serum Total Protein (6.3-8.2) g/dL Albumin (3.5-5.0) g/dL Urine Color (Yellow) Urine Appearance (Clear) Urine pH (4.6-8.0) Ur Specific [place] (1.005-1.030) Urine Protein (Negative) Urine Glucose (UA) (Negative) mg/dL Urine Ketones (Negative) Urine Blood (Negative) Urine Nitrite (Negative) Urine Bilirubin (Negative) Urine Urobilinogen (0.2) mg/dL Ur Leukocyte Esterase (Negative) U Hyaline Cast (Auto) (0-2) /LPF Urine Microscopic RBC (0-5) /HPF Urine Microscopic WBC (0-5) /HPF Ur Epithelial Cells (None Seen) /HPF Urine Bacteria (None Seen) /HPF Urine Culture Reflexed (NO) ABO Group A Rh Factor POSITIVE Antibody Screen NEGATIVE (NEGATIVE) - Radiology Impressions Radiology Exams & Impressions: Radiology Procedures Category Date Time Status LOWER EXTREMITY WO CONTRAST [CT] Stat Exams 12/14/24 20:45 Taken PELVIS WITHOUT CONTRAST [CT] Stat Exams 12/14/24 21:[address] leg and pelvis results not currently available, but per ED provider, showed comminuted left intertrochanteric femur fracture Assessment/Plan (1) Intertrochanteric fracture of left femur Current Visit: Yes Status: Acute Assessment & Plan: 74-year-old woman with history of diabetes, hypertension, CKD stage III, TIA, who presents after fall with left femoral fracture. ## Comminuted left intertrochanteric femoral fracture after a fall. Appears to have been mechanical fall, with no evidence of preceding symptoms to give high fall risk. Orthopedics consulted by the ED, but note they have no OR time until Saturday. Orthopedics evaluate tomorrow Nonweightbearing to left leg PRN morphine 4 mg ## Type 2 diabetes Placed on moderate dose sliding scale insulin Diabetic diet ## Leukocytosis etiology is unclear. Patient has some minimal pyuria on UA, but she denies any dysuria, arguing clinically against any significant acute cystitis. Leukocytosis might be stress reaction, although this would be higher than typical. Discontinue any further Rocephin Repeat WBC ## Anemia normocytic, chronic, with current hemoglobin roughly equivalent to her prior of 9.6. No evidence of acute bleeding. Follow CBC ## Chronic kidney disease stage III patient's baseline creatinine is 1.4-1.6. She is currently slightly better than prior documented baseline, at 1.25. Follow BMP ## Hypertension blood pressure elevated on arrival, but in the setting of acute pain. Treat pain as above Continue Norvasc 5 mg daily ## History of TIA Continue atorvastatin 80, Plavix 75 CODE STATUS: Full code Prophylaxis: Heparin subcutaneous q.8 hours Diet: Diabetic Dispo: Place in observation Entirety of encounter took place via live audio/video telemedicine device, with remote physician and patient in hospital, with the assistance of bedside nurse. Code(s): S72.142A - DISPLACED INTERTROCHANTERIC FRACTURE OF LEFT FEMUR, INIT Telemedicine Encounter - Telemedicine Encounter Telemedicine Encounter: "The entirety of this encounter was performed via Telemedicine" This visit was performed using real-time audio and video connection between my location and thepatients locationwith the assistance of a surrogateat the patients location. Written or verbal consent was obtained from the patient/guardian to perform this visit [email or web address]. Any patient questions regarding the telemedicine interaction were answered.
[2024-12-15] MEDS: MORPHINE SULFATE 4 MG INJ IV PRN (04:29)
[2024-12-15 05:12] LABS: Hemoglobin 8.4 g/dL (11.2-15.7); Mean Cell Volume 84.6 fL (79.4-94.8); Mean Corpuscular Hemoglobin 26.3 pg (25.6-32.2); Mean Corpuscular Hgb Concent. 31.1 g/dL (32.2-35.5); Mean Platelet Volume 10.7 fL (9.4-12.3); Platelet Count 223 x10^3/uL (182-369); Red Blood Count 3.19 x10^6/uL (3.93-5.22); Red Cell Distribution Width 14.6 % (11.7-14.4); White Blood Count 19.6 x10^3/uL (3.98-10.04)
[2024-12-15 05:37] LABS: ANION GAP 14.8 MEQ/L (5-15); Calcium 8.8 mg/dL (8.4-10.2); Creatinine 1 1.38 mg/dL (0.52-1.04); EST GLOMERULAR FILTRATION RATE 39.9 ML/MIN; PREALBUMIN 8.59 mg/dL (17.6-36.0); Potassium 4.7 mmol/L (3.5-5.1)
[2024-12-15] MEDS: HEPARIN 5000 UNITS/0.5 ML (HIGH RISK MED) SQ SCH (06:06)
[2024-12-15] MEDS: HUMALOG SQ PRN (07:55)
--- NOTE | 2024-12-15 08:49 | XRAY ---
Indication: Left hip pain following fall. Multiple contiguous axial images obtained through the pelvis with special attention to the osseous structures. Sagittal and coronal reformatted images obtained. Comparison: August 09, 2023. Osseous structures remain demineralized. Both hip articulation intact with stable mild degenerative changes. New comminuted impacted left intertrochanteric fracture with surrounding soft tissue hematoma. No other acute fracture or suspicious bony lesions. Elsewhere there remains moderate degenerative changes visualized lower lumbar spine, both SI joints, and pubic symphysis. Visualized noncontrasted soft tissues again demonstrate mild scattered colonic fecal debris, small fatty umbilical hernia, small fatty left inguinal hernia, and extensive scattered arteriosclerotic calcifications. New diffuse anasarca. Impression: 1. New comminuted impacted left intertrochanteric fracture. 2. New anasarca. Rule out CHF versus fluid overload. 3. Chronic findings including osteopenia, degenerative changes, arteriosclerotic disease, fatty umbilical hernia, and fatty left inguinal hernia.
--- NOTE | 2024-12-15 08:54 | XRAY ---
Indication: Left hip pain following fall. Multiple contiguous axial images obtained through the left femur with special attention to the osseous structures. Sagittal and coronal reformatted images obtained. Comparison: None. Osseous structures demineralized with mild left hip degenerative changes. There is comminuted impacted intertrochanteric fracture with surrounding soft tissue hematoma. No other acute fracture or suspicious bony lesions. Knee demonstrate moderate tricompartmental degenerative changes with small nonspecific effusion. Visualized noncontrasted soft tissues demonstrates small fatty left inguinal hernia and extensive scattered arteriosclerotic calcifications. Impression: 1. Comminuted impacted intertrochanteric fracture. 2. Chronic findings including osteopenia, hip/knee degenerative changes, arteriosclerotic disease, and fatty left inguinal hernia.
--- NOTE | 2024-12-15 09:02 | XRAY ---
Indication: Leukocytosis. Comparison: July 28, 2023 Portable chest remains inflated and clear. Heart not enlarged again with mitral valve calcifications. Bony thorax intact again with osteopenia, degenerative changes, partial resection distal left clavicle, and incompletely visualized left humeral shaft fracture. Impression: Continued nonacute chest with chronic features.
[2024-12-15] MEDS: Protonix 40MG Tablet PO SCH (09:11)
[2024-12-15] MEDS: PLAVIX Tablet PO SCH (09:11)
[2024-12-15] MEDS: ZOCOR 20MG PO SCH (09:11)
[2024-12-15] MEDS: CLARITIN 10 MG PO SCH (09:11)
[2024-12-15] MEDS: FOLATE 1 MG PO SCH (09:12)
[2024-12-15] MEDS: VITAMIN D PO SCH (09:12)
[2024-12-15] MEDS: NORVASC 5 MG PO SCH (09:12)
[2024-12-15] MEDS ORDERED: CHOLECALCIFEROL 400 UNIT PO SCH (10:00)
[2024-12-15] MEDS ORDERED: ROCEPHIN 1 GM / 100 ML NaCl 1 GM/100 ML IVPB IV SCH (10:00)
[2024-12-15] MEDS ORDERED: NON-FORMULARY ITEM (Omeprazole [Omeprazole] 20 MG Tablet.Dr) PO SCH (10:00)
[2024-12-15] MEDS ORDERED: NON-FORMULARY ITEM (Atorvastatin Calcium [Atorvastatin Calcium] 80 MG Tablet) PO SCH (10:00)
--- NOTE | 2024-12-15 10:23 | PCM.CONS ---
History of Present Illness - Consult Date of Consultation Date: 12/15/24 Reason for Consult: left hip fracture Consulting Provider: JEFF SAAVEDRA MD - [facility] History of Present Illness: is a 74 year old female who fell last night injuring her left hip. She complains of left hip pain and inability to walk. She typically uses a walker or a cane for ambulation. CT scan shows a comminuted left hip intertrochanteric femur fracture. - Review of Systems Musculoskeletal: Fall, Injury, Joint Pain, No Back Pain, No Neck Pain Medications & Allergies Home Medications: Home Medication List Cholecalciferol (Vitamin D3) [Vitamin D3] 1,000 unit PO DAILY 12/17/18 [History Confirmed 12/14/24] Loratadine 10 mg [Claritin 10 mg] 10 mg PO DAILY 12/17/18 [History Confirmed 12/14/24] Omeprazole 20 mg PO DAILY 12/23/18 [History Confirmed 12/14/24] Folic Acid 1 mg [Folate 1 mg] 1 mg PO DAILY 04/27/21 [History Confirmed 12/14/24] Insulin Lispro [Humalog] 100 unit SQ QIDPRN PRN 04/27/21 [History Confirmed 12/14/24] Metformin HCl 500 mg [Glucophage 500 MG] 500 mg PO BIDWM 07/12/22 [History Confirmed 12/14/24] Amlodipine Besylate 5 mg [Norvasc 5 mg] 5 mg PO QAM 30 Days #30 tablet 07/31/23 [Rx Confirmed 12/14/24] Atorvastatin Calcium 80 mg PO DAILY 30 Days #30 tablet 07/31/23 [Rx Confirmed 12/14/24] Clopidogrel Bisulfate [PLAVIX Tablet] 75 mg PO DAILY 30 Days #30 tablet 07/31/23 [Rx Confirmed 12/14/24] Quetiapine Fumarate [Seroquel] 25 mg PO QHS 30 Days #30 tablet 07/31/23 [Rx Confirmed 12/14/24] Allergies/Adverse Reactions: Allergies Allergy/AdvReac Type Severity Reaction Status Date / Time diphenhydramine HCl AdvReac Mild "itchy & Verified 12/14/24 20:47 [From Benadryl] red face" - Past Medical History Past Medical History: Yes Neurological History: No Pertinent History ENT History: Cataracts Cardiac History: High Cholesterol, Hypertension Respiratory History: No Pertinent History Endocrine Medical History: Diabetes Type II Musculoskelatal History: Rheumatoid Arthritis, Other GI Medical History: GERD History: Renal Disease, Other Pyscho-Social History: No Pertinent History Reproductive Disorders: Breast Cancer Comment: 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, psoriatior arthritis - Past Surgical History Past Surgical History: Yes Neuro Surgical History: No Pertinent History Cardiac History: No Pertinent History Respiratory Surgery: No Pertinent History GI Surgical History: No Pertinent History Genitourinary Surgical Hx: No Pertinent History Musculskeletal Surgical Hx: Orthopedic Surgery Female Surgical History: Section, Tubal Ligation Other Surgical History: left arm fx repair with hardware,breast cancer surgery,left rotator cuff, port placement and removal, left arm tanvir placed,c- sections times 2 Significant Family History: no pertinent family hx - Social History Smoking Status: Never smoker Exposure to second hand smoke: No Alcohol: None Drug Use: none - Social Determinants of Health Will the patient participate in the screening: Yes Do you worry about a steady place to live?: No Do you have any problems with any of the following?: No known problems In the past 12 months,have you had to go without utilities?: No Have you or anyone in your house had to go without enough: No Transportation Issues: No Has anyone in your support network made you feel unsafe?: No Does the patient want assistance with any of the above?: No - Nursing Vital Signs Nursing Vital Signs: Vital Signs - 24 hr Temp Pulse Resp BP BP Pulse Ox 12/15/24 07:19 98.0 F 69 16 168/77 95 12/15/24 04:00 97.5 F 72 18 198/90 97 12/15/24 00:39 97.3 F 69 20 188/86 98 12/15/24 00:29 97.3 F 69 20 188/86 98 12/14/24 23:28 93 L 12/14/24 23:00 67 12 187/97 100 12/14/24 22:30 68 12 161/77 99 12/14/24 22:01 74 18 195/105 93 L 12/14/24 21:36 71 18 213/73 100 12/14/24 21:22 77 16 213/73 100 12/14/24 20:33 97.7 F 74 18 198/78 99 - Physical Exam SpO2: 95 - Lower Extremity Hips: left: bone tenderness (left hip), limited range of motion (left hip), pain - Narrative Narrative Physical Exam: Ortho Physical Exam Assessment/Plan (1) Intertrochanteric fracture of left femur Current Visit: Yes Status: Acute Qualifiers: Encounter type: initial encounter Fracture type: closed Fracture alignment: displaced Qualified Code(s): S72.142A - Displaced intertrochanteric fracture of left femur, initial encounter for closed fracture Assessment & Plan: We discussed options, and I recommended IM nailing of the left hip fracture. Details of the procedure were discussed, as well as expected post op recovery. We will hold the plavix. Surgery will be scheduled for tomorrow morning. NPO after midnight. Code(s): S72.142A - DISPLACED INTERTROCHANTERIC FRACTURE OF LEFT FEMUR, INIT Results - Labs Lab/Micro Results: Lab Results-Last 24 Hours 12/14/24 12/14/24 12/14/24 Range/Units 20:55 20:55 21:36 WBC 19.4 H (3.98-10.04) x10^3/uL RBC 3.30 L (3.93-5.22) x10^6/uL Hgb 8.8 L (11.2-15.7) g/dL Hct 28.4 L (34.1-44.9) % MCV 86.1 (79.4-94.8) fL MCH 26.7 (25.6-32.2) pg MCHC 31.0 L (32.2-35.5) g/dL RDW 14.5 H (11.7-14.4) % Plt Count 237 (182-369) x10^3/uL MPV 10.6 (9.4-12.3) fL Gran % 85.2 H (34.0-71.1) % Immature Gran % (Auto) 0.8 H (0.001-0.429) % Nucleat RBC Rel Count 0.0 (0.00-0.2) % Eos # (Auto) 0.14 (0.04-0.36) x10^3/uL Immature Gran # (Auto) 0.16 H (0.001-0.031) x10^3u/L Absolute Lymphs (auto) 1.35 (1.18-3.74) x10^3/uL Absolute Monos (auto) 1.08 H (0.24-0.86) x10^3/uL Absolute Nucleated RBC 0.00 (0.00-0.012) x10^3u/L Lymphocytes % 7.0 L (19.3-51.7) % Monocytes % 5.6 (4.7-12.5) % Eosinophils % 0.7 (0.7-5.8) % Basophils % 0.7 (0.1-1.2) % Absolute Granulocytes 16.52 H (1.56-6.13) x10^3/uL Basophils # 0.13 H (0.01-0.08) x10^3/uL Sodium 135 (135-145) mmol/L Potassium 5.0 (3.5-5.1) mmol/L Chloride 97 L (98-107) mmol/L Carbon Dioxide 25 (22-30) mmol/L Anion Gap 17.6 H (5-15) MEQ/L BUN 28 H (7-17) mg/dL Creatinine 1.25 H (0.52-1.04) mg/dL Estimated GFR 45.0 ML/MIN Glucose 305 H (74-106) mg/dL POC Glucometer (74 to 106) mg/dL Calcium 8.9 (8.4-10.2) mg/dL Total Bilirubin 0.70 (0.2-1.3) mg/dL AST 106 H (14-36) U/L ALT 61 H (0-35) U/L Alkaline Phosphatase 369 H (38-126) U/L Serum Total Protein 7.1 (6.3-8.2) g/dL Albumin 3.6 (3.5-5.0) g/dL Prealbumin (17.6-36.0) mg/dL Urine Color Yellow (Yellow) Urine Appearance Clear (Clear) Urine pH 6.5 (4.6-8.0) Ur Specific Mellott 1.020 (1.005-1.030) Urine Protein 300 A (Negative) Urine Glucose (UA) 500 A (Negative) mg/dL Urine Ketones Negative (Negative) Urine Blood Moderate A (Negative) Urine Nitrite Negative (Negative) Urine Bilirubin Negative (Negative) Urine Urobilinogen 1.0 A (0.2) mg/dL Ur Leukocyte Esterase Negative (Negative) U Hyaline Cast (Auto) NONE SEEN (0-2) /LPF Urine Microscopic RBC 0-2 (0-5) /HPF Urine Microscopic WBC 6-10 A (0-5) /HPF Ur Epithelial Cells None Seen (None Seen) /HPF Urine Bacteria Few A (None Seen) /HPF Urine Culture Reflexed YES (NO) ABO Group Rh Factor Antibody Screen (NEGATIVE) 12/14/24 12/15/24 12/15/24 Range/Units 23:35 05:06 05:06 WBC 19.6 H (3.98-10.04) x10^3/uL RBC 3.19 L (3.93-5.22) x10^6/uL Hgb 8.4 L (11.2-15.7) g/dL Hct 27.0 L (34.1-44.9) % MCV 84.6 (79.4-94.8) fL MCH 26.3 (25.6-32.2) pg MCHC 31.1 L (32.2-35.5) g/dL RDW 14.6 H (11.7-14.4) % Plt Count 223 (182-369) x10^3/uL MPV 10.7 (9.4-12.3) fL Gran % (34.0-71.1) % Immature Gran % (Auto) (0.001-0.429) % Nucleat RBC Rel Count (0.00-0.2) % Eos # (Auto) (0.04-0.36) x10^3/uL Immature Gran # (Auto) (0.001-0.031) x10^3u/L Absolute Lymphs (auto) (1.18-3.74) x10^3/uL Absolute Monos (auto) (0.24-0.86) x10^3/uL Absolute Nucleated RBC (0.00-0.012) x10^3u/L Lymphocytes % (19.3-51.7) % Monocytes % (4.7-12.5) % Eosinophils % (0.7-5.8) % Basophils % (0.1-1.2) % Absolute Granulocytes (1.56-6.13) x10^3/uL Basophils # (0.01-0.08) x10^3/uL Sodium 135 (135-145) mmol/L Potassium 4.7 (3.5-5.1) mmol/L Chloride 97 L (98-107) mmol/L Carbon Dioxide 28 (22-30) mmol/L Anion Gap 14.8 (5-15) MEQ/L BUN 27 H (7-17) mg/dL Creatinine 1.38 H (0.52-1.04) mg/dL Estimated GFR 39.9 ML/MIN Glucose 251 H (74-106) mg/dL POC Glucometer (74 to 106) mg/dL Calcium 8.8 (8.4-10.2) mg/dL Total Bilirubin (0.2-1.3) mg/dL AST (14-36) U/L ALT (0-35) U/L Alkaline Phosphatase (38-126) U/L Serum Total Protein (6.3-8.2) g/dL Albumin (3.5-5.0) g/dL Prealbumin 8.59 L (17.6-36.0) mg/dL Urine Color (Yellow) Urine Appearance (Clear) Urine pH (4.6-8.0) Ur Specific Mellott (1.005-1.030) Urine Protein (Negative) Urine Glucose (UA) (Negative) mg/dL Urine Ketones (Negative) Urine Blood (Negative) Urine Nitrite (Negative) Urine Bilirubin (Negative) Urine Urobilinogen (0.2) mg/dL Ur Leukocyte Esterase (Negative) U Hyaline Cast (Auto) (0-2) /LPF Urine Microscopic RBC (0-5) /HPF Urine Microscopic WBC (0-5) /HPF Ur Epithelial Cells (None Seen) /HPF Urine Bacteria (None Seen) /HPF Urine Culture Reflexed (NO) ABO Group A Rh Factor POSITIVE Antibody Screen NEGATIVE (NEGATIVE) 12/15/24 Range/Units 07:30 WBC (3.98-10.04) x10^3/uL RBC (3.93-5.22) x10^6/uL Hgb (11.2-15.7) g/dL Hct (34.1-44.9) % MCV (79.4-94.8) fL MCH (25.6-32.2) pg MCHC (32.2-35.5) g/dL RDW (11.7-14.4) % Plt Count (182-369) x10^3/uL MPV (9.4-12.3) fL Gran % (34.0-71.1) % Immature Gran % (Auto) (0.001-0.429) % Nucleat RBC Rel Count (0.00-0.2) % Eos # (Auto) (0.04-0.36) x10^3/uL Immature Gran # (Auto) (0.001-0.031) x10^3u/L Absolute Lymphs (auto) (1.18-3.74) x10^3/uL Absolute Monos (auto) (0.24-0.86) x10^3/uL Absolute Nucleated RBC (0.00-0.012) x10^3u/L Lymphocytes % (19.3-51.7) % Monocytes % (4.7-12.5) % Eosinophils % (0.7-5.8) % Basophils % (0.1-1.2) % Absolute Granulocytes (1.56-6.13) x10^3/uL Basophils # (0.01-0.08) x10^3/uL Sodium (135-145) mmol/L Potassium (3.5-5.1) mmol/L Chloride (98-107) mmol/L Carbon Dioxide (22-30) mmol/L Anion Gap (5-15) MEQ/L BUN (7-17) mg/dL Creatinine (0.52-1.04) mg/dL Estimated GFR ML/MIN Glucose (74-106) mg/dL POC Glucometer 217 H (74 to 106) mg/dL Calcium (8.4-10.2) mg/dL Total Bilirubin (0.2-1.3) mg/dL AST (14-36) U/L ALT (0-35) U/L Alkaline Phosphatase (38-126) U/L Serum Total Protein (6.3-8.2) g/dL Albumin (3.5-5.0) g/dL Prealbumin (17.6-36.0) mg/dL Urine Color (Yellow) Urine Appearance (Clear) Urine pH (4.6-8.0) Ur Specific Mellott (1.005-1.030) Urine Protein (Negative) Urine Glucose (UA) (Negative) mg/dL Urine Ketones (Negative) Urine Blood (Negative) Urine Nitrite (Negative) Urine Bilirubin (Negative) Urine Urobilinogen (0.2) mg/dL Ur Leukocyte Esterase (Negative) U Hyaline Cast (Auto) (0-2) /LPF Urine Microscopic RBC (0-5) /HPF Urine Microscopic WBC (0-5) /HPF Ur Epithelial Cells (None Seen) /HPF Urine Bacteria (None Seen) /HPF Urine Culture Reflexed (NO) ABO Group Rh Factor Antibody Screen (NEGATIVE) Microbiology 12/15/24 01:00 Urine Culture - Preliminary Catherized NO GROWTH TO DATE 12/14/24 21:36 Urine Culture - Preliminary Urine, Catheterized NO GROWTH TO DATE Accuchecks Date 12/15/24 Time 07:45 - Radiology Impressions Radiology Exams & Impressions: Radiology Procedures Category Date Time Status CHEST 1 VIEW (PORTABLE) Stat Exams 12/15/24 08:34 Completed HIP UNILATERAL (1 VIEW) Routine Exams 12/15/24 09:34 Ordered LOWER EXTREMITY WO CONTRAST [CT] Stat Exams 12/14/24 20:45 Completed PELVIS WITHOUT CONTRAST [CT] Stat Exams 12/14/24 21:12 Completed
[2024-12-15 10:49] LABS: ABO TYPING A; Antibody Screen NEGATIVE (NEGATIVE); RH TYPING POSITIVE
--- NOTE | 2024-12-15 10:58 | XRAY ---
Indication: Left hip pain. Comparison: CT 1 day earlier. Single AP portable left hip demonstrates grossly stable comminuted impacted intratrochanteric fracture, osteopenia, and extensive scattered vascular calcifications. No new bony, articular, or soft tissue abnormalities.
[2024-12-15] MEDS: NORCO 5/325 MG PO PRN (14:13)
[2024-12-15] MEDS: Apresoline 25 MG TABLET PO ONE (17:57)
[2024-12-15] MEDS: Seroquel 25 MG PO SCH (21:28)
--- NOTE | 2024-12-16 05:16 | PCM.NOTE ---
Date and Time: 12/16/24 0509 Subjective Assessment: A 74-year-old woman with a history of type 2 diabetes, hypertension, dementia, CKD stage III, and prior TIA presents after a mechanical fall resulting in a comminuted left intertrochanteric femoral fracture. She was attempting to open the refrigerator while wearing slick socks, lost her balance, and fell backward onto the kitchen island before landing on the floor. She reports severe left hip pain but denies loss of consciousness, head trauma, dizziness, lightheadedness, or preceding symptoms suggestive of a syncopal or infectious etiology. Orthopedics was consulted in the ED and recommends intramedullary nailing, though OR availability is delayed until 12/16/24. She remains non-weightbearing on the left leg with pain managed via PRN morphine. 12/16/24: Plan for surgery today intramedullary nailing. Objective Data Vital Signs: Vital Signs - 24 hr Temp Pulse Resp BP Pulse Ox 12/16/24 04:57 164/72 12/16/24 04:00 97.9 F 75 16 171/78 94 L 12/16/24 00:00 97.8 F 84 18 156/71 97 12/15/24 19:57 97.5 F 73 16 152/70 99 12/15/24 19:44 95 12/15/24 15:00 97.8 F 69 16 172/77 95 12/15/24 13:39 99 12/15/24 11:51 97.5 F 72 16 173/79 90 L 12/15/24 10:27 95 12/15/24 07:19 98.0 F 69 16 168/77 95 Pain Assessment - Last Documented Pain Intensity 4 Pain Scale Used 0-10 Pain Scale Intake and Output: Intake & Output 12/13/24 12/14/24 12/15/24 12/16/24 11:59 11:59 11:59 11:59 Intake Total 0 520 Output Total 700 550 Balance -700 -30 Weight 59.7 kg Lab Results: Lab Results-Last 24 Hours 12/15/24 12/15/24 12/15/24 Range/Units 05:06 05:06 07:30 WBC 19.6 H (3.98-10.04) x10^3/uL RBC 3.19 L (3.93-5.22) x10^6/uL Hgb 8.4 L (11.2-15.7) g/dL Hct 27.0 L (34.1-44.9) % MCV 84.6 (79.4-94.8) fL MCH 26.3 (25.6-32.2) pg MCHC 31.1 L (32.2-35.5) g/dL RDW 14.6 H (11.7-14.4) % Plt Count 223 (182-369) x10^3/uL MPV 10.7 (9.4-12.3) fL Sodium 135 (135-145) mmol/L Potassium 4.7 (3.5-5.1) mmol/L Chloride 97 L (98-107) mmol/L Carbon Dioxide 28 (22-30) mmol/L Anion Gap 14.8 (5-15) MEQ/L BUN 27 H (7-17) mg/dL Creatinine 1.38 H (0.52-1.04) mg/dL Estimated GFR 39.9 ML/MIN Glucose 251 H (74-106) mg/dL POC Glucometer 217 H (74 to 106) mg/dL Calcium 8.8 (8.4-10.2) mg/dL Prealbumin 8.59 L (17.6-36.0) mg/dL ABO Group Rh Factor Antibody Screen (NEGATIVE) 12/15/24 12/15/24 12/15/24 Range/Units 08:00 11:24 16:57 WBC (3.98-10.04) x10^3/uL RBC (3.93-5.22) x10^6/uL Hgb (11.2-15.7) g/dL Hct (34.1-44.9) % MCV (79.4-94.8) fL MCH (25.6-32.2) pg MCHC (32.2-35.5) g/dL RDW (11.7-14.4) % Plt Count (182-369) x10^3/uL MPV (9.4-12.3) fL Sodium (135-145) mmol/L Potassium (3.5-5.1) mmol/L Chloride (98-107) mmol/L Carbon Dioxide (22-30) mmol/L Anion Gap (5-15) MEQ/L BUN (7-17) mg/dL Creatinine (0.52-1.04) mg/dL Estimated GFR ML/MIN Glucose (74-106) mg/dL POC Glucometer 90 167 H (74 to 106) mg/dL Calcium (8.4-10.2) mg/dL Prealbumin (17.6-36.0) mg/dL ABO Group A Rh Factor POSITIVE Antibody Screen NEGATIVE (NEGATIVE) 12/15/24 Range/Units 21:04 WBC (3.98-10.04) x10^3/uL RBC (3.93-5.22) x10^6/uL Hgb (11.2-15.7) g/dL Hct (34.1-44.9) % MCV (79.4-94.8) fL MCH (25.6-32.2) pg MCHC (32.2-35.5) g/dL RDW (11.7-14.4) % Plt Count (182-369) x10^3/uL MPV (9.4-12.3) fL Sodium (135-145) mmol/L Potassium (3.5-5.1) mmol/L Chloride (98-107) mmol/L Carbon Dioxide (22-30) mmol/L Anion Gap (5-15) MEQ/L BUN (7-17) mg/dL Creatinine (0.52-1.04) mg/dL Estimated GFR ML/MIN Glucose (74-106) mg/dL POC Glucometer 207 H (74 to 106) mg/dL Calcium (8.4-10.2) mg/dL Prealbumin (17.6-36.0) mg/dL ABO Group Rh Factor Antibody Screen (NEGATIVE) Radiology Exams: Radiology Procedures Category Date Time Status CHEST 1 VIEW (PORTABLE) Stat Exams 12/15/24 08:34 Completed HIP UNILATERAL (1 VIEW) Routine Exams 12/15/24 09:34 Completed LOWER EXTREMITY WO CONTRAST [CT] Stat Exams 12/14/24 20:45 Completed PELVIS WITHOUT CONTRAST [CT] Stat Exams 12/14/24 21:12 Completed Assessment/Plan (1) Intertrochanteric fracture of left femur Current Visit: Yes Status: Acute Qualifiers: Encounter type: initial encounter Fracture type: closed Fracture alignment: displaced Qualified Code(s): S72.142A - Displaced intertrochanteric fracture of left femur, initial encounter for closed fracture Assessment & Plan: -Reviewed ortho note - intramedullary nailing planned 12/16/24 -non-weightbearing on the left leg with -pain managed via PRN morphine Code(s): S72.142A - DISPLACED INTERTROCHANTERIC FRACTURE OF LEFT FEMUR, INIT (2) Leukocytosis Current Visit: Yes Status: Acute Assessment & Plan: -WBC reviewed at 19.8 ?reactive -No obvious source of infection -trend -CXR non acute -UA with no growth on culture -Blood cultures ordered - will start on Ceftriaxone empirically Code(s): D72.829 - ELEVATED WHITE BLOOD CELL COUNT, UNSPECIFIED (3) Anemia Current Visit: Yes Status: Acute Assessment & Plan: normocytic, chronic, with current hemoglobin at 7.8 and stable. No evidence of acute bleeding -trend - will add iron studies Code(s): D64.9 - ANEMIA, UNSPECIFIED (4) CKD (chronic kidney disease) stage 3, GFR 30-59 ml/min Current Visit: Yes Status: Acute Assessment & Plan: patient's baseline creatinine is 1.4-1.6 Cmp reviewed and at 1.52 -trend -avoid nephrotoxic agents -IVF Code(s): N18.30 - CHRONIC KIDNEY DISEASE, STAGE 3 UNSPECIFIED (5) HTN (hypertension) Current Visit: Yes Status: Acute Assessment & Plan: Continue Norvasc 5 mg daily Code(s): I10 - ESSENTIAL (PRIMARY) HYPERTENSION (6) History of TIA (transient ischemic attack) Current Visit: Yes Status: Acute Assessment & Plan: Continue atorvastatin 80, Plavix 75 Code(s): Z86.73 - PRSNL HX OF TIA (TIA), AND CEREB INFRC W/O RESID DEFICITS (7) Fall Current Visit: Yes Status: Acute Assessment & Plan: -see plan for fracture above -PT/OT eval when able -may need placement for rehab after surgery Code(s): W19.XXXA - UNSPECIFIED FALL, INITIAL ENCOUNTER (8) Diabetes mellitus Current Visit: No Status: Acute Assessment & Plan: -ADA diet -A1c -SSI VTE: hold for surgery Dispo 2-3 days - may need rehab on discharge Code status: Full code Code(s): E11.9 - TYPE 2 DIABETES MELLITUS WITHOUT COMPLICATIONS
[2024-12-16] MEDS: Sodium Chloride 0.9% 1000 ML 1,000 ML IV SCH ×2 (06:01→11:33)
[2024-12-16] MEDS: CEFAZOLIN 2 GM/100 ML NaCl 2 GM/100 ML IVPB IV SCH ×2 (06:04→13:40)
[2024-12-16 06:33] LABS: BASOPHIL % 0.5 % (0.1-1.2); Basophil (Absolute #) 0.09 x10^3/uL (0.01-0.08); Eosinophil % 0.3 % (0.7-5.8); Eosinophil (Absolute #) 0.05 x10^3/uL (0.04-0.36); Hematocrit 22.7 % (34.1-44.9); IMMATURE GRAN # 0.12 x10^3u/L (0.001-0.031); IMMATURE GRAN % 0.6 % (0.001-0.429); Lymphocytes % 9.1 % (19.3-51.7); Mean Cell Volume 85.7 fL (79.4-94.8); Mean Corpuscular Hemoglobin 26.4 pg (25.6-32.2); Mean Corpuscular Hgb Concent. 30.8 g/dL (32.2-35.5); Mean Platelet Volume 10.2 fL (9.4-12.3); Monocyte (Absolute #) 1.35 x10^3/uL (0.24-0.86); Monocytes % 6.8 % (4.7-12.5); Neutrophil % 82.7 % (34.0-71.1); Platelet Count 204 x10^3/uL (182-369); Red Blood Count 2.65 x10^6/uL (3.93-5.22); Red Cell Distribution Width 14.6 % (11.7-14.4); White Blood Count 19.8 x10^3/uL (3.98-10.04)
[2024-12-16 06:45] LABS: ALBUMIN 3.3 g/dL (3.5-5.0); ANION GAP 15.8 MEQ/L (5-15); BILIRUBIN,TOTAL 0.7 mg/dL (0.2-1.3); Calcium 8.5 mg/dL (8.4-10.2); Creatinine 1 1.52 mg/dL (0.52-1.04); EST GLOMERULAR FILTRATION RATE 35.6 ML/MIN; Potassium 4.4 mmol/L (3.5-5.1); Total Protein 6.8 g/dL (6.3-8.2)
[2024-12-16 07:06] LABS: Hematocrit 25.8 % (34.1-44.9); Hemoglobin 7.8 g/dL (11.2-15.7)
[2024-12-16] MEDS ORDERED: SUBLIMAZE 100 MCG/2 ML ONE ×3 (07:44→09:37)
[2024-12-16] MEDS ORDERED: ROCURONIUM BROMIDE IV ONE (07:45)
[2024-12-16] MEDS ORDERED: propofoL IV ONE (07:45)
[2024-12-16] MEDS ORDERED: BRIDION 200MG/2ML IV ONE (07:45)
[2024-12-16] MEDS ORDERED: Zofran 4 MG/2 ML VIAL ONE (07:45)
[2024-12-16] MEDS ORDERED: Marcaine Mpf 0.5% Vial 30 Ml ONE (07:55)
[2024-12-16] MEDS ORDERED: PHENYLEPHRINE HCL ONE (07:59)
[2024-12-16] MEDS ORDERED: TRANDATE 20 MG/4 ML SYRINGE IV ONE (09:30)
[2024-12-16] MEDS ORDERED: MORPHINE SULFATE 2 MG INJ ONE ×3 (09:34→10:21)
--- NOTE | 2024-12-16 10:59 | XRAY ---
Indication: Left hip pinning. Intraoperative fluoroscopy provided for 1 minute 27 seconds. 20 digital spot images submitted for interpretation ultimately demonstrates gamma nail, intramedullary tanvir, and distal transverse screw fixating intertrochanteric fracture. Fracture apposition/alignment appears near anatomic. Correlate with intraoperative findings/report.
[2024-12-16] MEDS ORDERED: Miralax Powder 17GM PACKET PO PRN (11:24)
[2024-12-16] MEDS ORDERED: Zofran 4 MG/2 ML VIAL IV PRN (11:25)
[2024-12-16 11:26] LABS: Iron 39 ug/dL (37-170); Iron Saturation 19 % (20-39); TIBC 210 ug/dL (265-462)
[2024-12-16] MEDS: NORVASC 5 MG PO SCH (11:32)
[2024-12-16 12:24] LABS: Ferritin 431 ng/mL (11.1-264); Folate (Folic Acid) > 20.0 ng/mL (2.76 - >20); Vitamin B12 636 pg/mL (239-931)
--- NOTE | 2024-12-16 12:58 | XRAY ---
One minute and 27 seconds of fluoroscopy was used in surgery for a left hip pinning.
[2024-12-16 14:29] LABS: Hematocrit 27.3 % (34.1-44.9); Hemoglobin 8.4 g/dL (11.2-15.7); Mean Cell Volume 87.2 fL (79.4-94.8); Mean Corpuscular Hemoglobin 26.8 pg (25.6-32.2); Mean Corpuscular Hgb Concent. 30.8 g/dL (32.2-35.5); Mean Platelet Volume 10.3 fL (9.4-12.3); Platelet Count 269 x10^3/uL (182-369); Red Blood Count 3.13 x10^6/uL (3.93-5.22); Red Cell Distribution Width 14.4 % (11.7-14.4)
[2024-12-16 14:40] LABS: ALBUMIN 3.8 g/dL (3.5-5.0); ANION GAP 18.9 MEQ/L (5-15); BILIRUBIN,TOTAL 0.5 mg/dL (0.2-1.3); Calcium 8.7 mg/dL (8.4-10.2); Creatinine 1 1.56 mg/dL (0.52-1.04); EST GLOMERULAR FILTRATION RATE 34.5 ML/MIN; Potassium 4.2 mmol/L (3.5-5.1); Total Protein 7.5 g/dL (6.3-8.2)
[2024-12-16 14:44] LABS: White Blood Count 27.5 x10^3/uL (3.98-10.04)
[2024-12-16] MEDS: NORCO 5/325 MG PO PRN (15:50)
--- NOTE | 2024-12-17 05:31 | PCM.NOTE ---
Date and Time: 12/17/24529 Subjective Assessment: A 74-year-old woman with a history of type 2 diabetes, hypertension, dementia, CKD stage III, and prior TIA presents after a mechanical fall resulting in a comminuted left intertrochanteric femoral fracture. She was attempting to open the refrigerator while wearing slick socks, lost her balance, and fell backward onto the kitchen island before landing on the floor. She reports severe left hip pain but denies loss of consciousness, head trauma, dizziness, lightheadedness, or preceding symptoms suggestive of a syncopal or infectious etiology. Orthopedics was consulted in the ED and recommends intramedullary nailing, though OR availability is delayed until 12/16/24. She remains non-weightbearing on the left leg with pain managed via PRN morphine. 12/16/24: Plan for surgery today intramedullary nailing. Patient evaluated s/p intramedullary nailing. Reports zero pain currently. Spoke with son at bedside, plan is for patient to discharge home if she does well with PT. Patient has been hypertensive and amlodipine increased. 12/17/24: Met with patient bedside, son in law present. POD#1 Endorses significant pain with movement, rating at 7/10 on numerical scale. Hemoglobin was 6.4 this morning and patient is set up to receive 2 units lprbc. WBC is now down-trending with no obvious source of infection. Creat is at baseline. Plan for patient to work with PT for evaluation on discharge plans. - Review of Systems Constitutional: No Symptoms (left hip) Eyes: No Symptoms Ears, Nose, & Throat: No Symptoms Respiratory: No Symptoms Cardiac: No Symptoms Abdominal/Gastrointestinal: No Symptoms Genitourinary Symptoms: No Symptoms Musculoskeletal: Joint Pain Skin: Other (left hip incision with dressing CDI) Neurological: No Symptoms Psychological: No Symptoms Endocrine: No Symptoms Hematologic/Lymphatic: Anemia Immunological/Allergic: No Symptoms Objective Exam General Appearance: no apparent distress Neurologic Exam: alert, cooperative, disoriented, confusion Skin Exam: pale Eye Exam: PERRL Ears, Nose, Throat Exam: normal ENT inspection Neck Exam: normal inspection Respiratory Exam: normal breath sounds, lungs clear Cardiovascular Exam: regular rate/rhythm, normal heart sounds Gastrointestinal/Abdomen Exam: soft, normal bowel sounds Extremity Exam: other (left hip incision with dressing CDI) Back Exam: normal inspection Pelvic Exam: deferred Objective Data Vital Signs: Vital Signs - 24 hr Temp Pulse Resp BP Pulse Ox 12/17/24 04:00 97.8 F 78 18 147/67 97 12/16/24 23:40 97.8 F 79 18 147/67 97 12/16/24 21:43 92 L 12/16/24 20:00 97.6 F 74 18 151/67 96 12/16/24 16:00 97.8 F 80 17 148/65 95 12/16/24 13:11 96 12/16/24 12:05 75 17 159/78 99 12/16/24 11:35 74 17 163/75 100 12/16/24 11:05 73 17 169/84 97 12/16/24 10:50 73 17 187/84 97 12/16/24 07:48 97.7 F 74 17 169/75 93 L 12/16/24 06:31 97.9 F 75 16 164/72 94 L Pain Assessment - Last Documented Pain Intensity 0 Pain Scale Used 0-10 Pain Scale Intake and Output: Intake & Output 12/14/24 12/15/24 12/16/24 12/17/24 11:59 11:59 11:59 11:59 Intake Total 0 520 1737 Output Total 700 550 775 Balance -700 -30 962 Weight 59.7 kg 59.7 kg 59.7 kg Lab Results: Lab Results-Last 24 Hours 12/16/24 12/16/24 12/16/24 Range/Units 06:15 06:15 06:15 WBC 19.8 H (3.98-10.04) x10^3/uL RBC 2.65 L (3.93-5.22) x10^6/uL Hgb 7.0 L* (11.2-15.7) g/dL Hct 22.7 L (34.1-44.9) % MCV 85.7 (79.4-94.8) fL MCH 26.4 (25.6-32.2) pg MCHC 30.8 L (32.2-35.5) g/dL RDW 14.6 H (11.7-14.4) % Plt Count 204 (182-369) x10^3/uL MPV 10.2 (9.4-12.3) fL Gran % 82.7 H (34.0-71.1) % Immature Gran % (Auto) 0.6 H (0.001-0.429) % Nucleat RBC Rel Count 0.0 (0.00-0.2) % Eos # (Auto) 0.05 (0.04-0.36) x10^3/uL Immature Gran # (Auto) 0.12 H (0.001-0.031) x10^3u/L Absolute Lymphs (auto) 1.80 (1.18-3.74) x10^3/uL Absolute Monos (auto) 1.35 H (0.24-0.86) x10^3/uL Absolute Nucleated RBC 0.00 (0.00-0.012) x10^3u/L Lymphocytes % 9.1 L (19.3-51.7) % Monocytes % 6.8 (4.7-12.5) % Eosinophils % 0.3 L (0.7-5.8) % Basophils % 0.5 (0.1-1.2) % Absolute Granulocytes 16.40 H (1.56-6.13) x10^3/uL Basophils # 0.09 H (0.01-0.08) x10^3/uL Sodium 134 L (135-145) mmol/L Potassium 4.4 (3.5-5.1) mmol/L Chloride 95 L (98-107) mmol/L Carbon Dioxide 28 (22-30) mmol/L Anion Gap 15.8 H (5-15) MEQ/L BUN 27 H (7-17) mg/dL Creatinine 1.52 H (0.52-1.04) mg/dL Estimated GFR 35.6 ML/MIN Glucose 187 H (74-106) mg/dL POC Glucometer (74 to 106) mg/dL Calcium 8.5 (8.4-10.2) mg/dL Iron (37-170) ug/dL TIBC (265-462) ug/dL Iron Saturation (20-39) % Ferritin (11.1-264) ng/mL Total Bilirubin 0.70 (0.2-1.3) mg/dL AST 68 H (14-36) U/L ALT 47 H (0-35) U/L Alkaline Phosphatase 275 H (38-126) U/L Serum Total Protein 6.8 (6.3-8.2) g/dL Albumin 3.3 L (3.5-5.0) g/dL Lipase (23-300) U/L Vitamin B12 (239-931) pg/mL Folic Acid (2.76 - >20) ng/mL Procalcitonin 0.480 H (0.030-0.080) ng/mL 12/16/24 12/16/24 12/16/24 Range/Units 06:15 06:15 06:15 WBC (3.98-10.04) x10^3/uL RBC (3.93-5.22) x10^6/uL Hgb (11.2-15.7) g/dL Hct (34.1-44.9) % MCV (79.4-94.8) fL MCH (25.6-32.2) pg MCHC (32.2-35.5) g/dL RDW (11.7-14.4) % Plt Count (182-369) x10^3/uL MPV (9.4-12.3) fL Gran % (34.0-71.1) % Immature Gran % (Auto) (0.001-0.429) % Nucleat RBC Rel Count (0.00-0.2) % Eos # (Auto) (0.04-0.36) x10^3/uL Immature Gran # (Auto) (0.001-0.031) x10^3u/L Absolute Lymphs (auto) (1.18-3.74) x10^3/uL Absolute Monos (auto) (0.24-0.86) x10^3/uL Absolute Nucleated RBC (0.00-0.012) x10^3u/L Lymphocytes % (19.3-51.7) % Monocytes % (4.7-12.5) % Eosinophils % (0.7-5.8) % Basophils % (0.1-1.2) % Absolute Granulocytes (1.56-6.13) x10^3/uL Basophils # (0.01-0.08) x10^3/uL Sodium (135-145) mmol/L Potassium (3.5-5.1) mmol/L Chloride (98-107) mmol/L Carbon Dioxide (22-30) mmol/L Anion Gap (5-15) MEQ/L BUN (7-17) mg/dL Creatinine (0.52-1.04) mg/dL Estimated GFR ML/MIN Glucose (74-106) mg/dL POC Glucometer (74 to 106) mg/dL Calcium (8.4-10.2) mg/dL Iron 39 (37-170) ug/dL TIBC 210 L (265-462) ug/dL Iron Saturation 19 L (20-39) % Ferritin 431 H (11.1-264) ng/mL Total Bilirubin (0.2-1.3) mg/dL AST (14-36) U/L ALT (0-35) U/L Alkaline Phosphatase (38-126) U/L Serum Total Protein (6.3-8.2) g/dL Albumin (3.5-5.0) g/dL Lipase 40 (23-300) U/L Vitamin B12 636 (239-931) pg/mL Folic Acid > 20.0 (2.76 - >20) ng/mL Procalcitonin (0.030-0.080) ng/mL 12/16/24 12/16/24 12/16/24 Range/Units 07:01 07:19 09:45 WBC (3.98-10.04) x10^3/uL RBC (3.93-5.22) x10^6/uL Hgb 7.8 L (11.2-15.7) g/dL Hct 25.8 L (34.1-44.9) % MCV (79.4-94.8) fL MCH (25.6-32.2) pg MCHC (32.2-35.5) g/dL RDW (11.7-14.4) % Plt Count (182-369) x10^3/uL MPV (9.4-12.3) fL Gran % (34.0-71.1) % Immature Gran % (Auto) (0.001-0.429) % Nucleat RBC Rel Count (0.00-0.2) % Eos # (Auto) (0.04-0.36) x10^3/uL Immature Gran # (Auto) (0.001-0.031) x10^3u/L Absolute Lymphs (auto) (1.18-3.74) x10^3/uL Absolute Monos (auto) (0.24-0.86) x10^3/uL Absolute Nucleated RBC (0.00-0.012) x10^3u/L Lymphocytes % (19.3-51.7) % Monocytes % (4.7-12.5) % Eosinophils % (0.7-5.8) % Basophils % (0.1-1.2) % Absolute Granulocytes (1.56-6.13) x10^3/uL Basophils # (0.01-0.08) x10^3/uL Sodium (135-145) mmol/L Potassium (3.5-5.1) mmol/L Chloride (98-107) mmol/L Carbon Dioxide (22-30) mmol/L Anion Gap (5-15) MEQ/L BUN (7-17) mg/dL Creatinine (0.52-1.04) mg/dL Estimated GFR ML/MIN Glucose (74-106) mg/dL POC Glucometer 172 H 191 H (74 to 106) mg/dL Calcium (8.4-10.2) mg/dL Iron (37-170) ug/dL TIBC (265-462) ug/dL Iron Saturation (20-39) % Ferritin (11.1-264) ng/mL Total Bilirubin (0.2-1.3) mg/dL AST (14-36) U/L ALT (0-35) U/L Alkaline Phosphatase (38-126) U/L Serum Total Protein (6.3-8.2) g/dL Albumin (3.5-5.0) g/dL Lipase (23-300) U/L Vitamin B12 (239-931) pg/mL Folic Acid (2.76 - >20) ng/mL Procalcitonin (0.030-0.080) ng/mL 12/16/24 12/16/24 12/16/24 Range/Units 11:49 14:05 14:05 WBC 27.5 H* (3.98-10.04) x10^3/uL RBC 3.13 L (3.93-5.22) x10^6/uL Hgb 8.4 L (11.2-15.7) g/dL Hct 27.3 L (34.1-44.9) % MCV 87.2 (79.4-94.8) fL MCH 26.8 (25.6-32.2) pg MCHC 30.8 L (32.2-35.5) g/dL RDW 14.4 (11.7-14.4) % Plt Count 269 (182-369) x10^3/uL MPV 10.3 (9.4-12.3) fL Gran % (34.0-71.1) % Immature Gran % (Auto) (0.001-0.429) % Nucleat RBC Rel Count (0.00-0.2) % Eos # (Auto) (0.04-0.36) x10^3/uL Immature Gran # (Auto) (0.001-0.031) x10^3u/L Absolute Lymphs (auto) (1.18-3.74) x10^3/uL Absolute Monos (auto) (0.24-0.86) x10^3/uL Absolute Nucleated RBC (0.00-0.012) x10^3u/L Lymphocytes % (19.3-51.7) % Monocytes % (4.7-12.5) % Eosinophils % (0.7-5.8) % Basophils % (0.1-1.2) % Absolute Granulocytes (1.56-6.13) x10^3/uL Basophils # (0.01-0.08) x10^3/uL Sodium 136 (135-145) mmol/L Potassium 4.2 (3.5-5.1) mmol/L Chloride 96 L (98-107) mmol/L Carbon Dioxide 25 (22-30) mmol/L Anion Gap 18.9 H (5-15) MEQ/L BUN 26 H (7-17) mg/dL Creatinine 1.56 H (0.52-1.04) mg/dL Estimated GFR 34.5 ML/MIN Glucose 182 H (74-106) mg/dL POC Glucometer 206 H (74 to 106) mg/dL Calcium 8.7 (8.4-10.2) mg/dL Iron (37-170) ug/dL TIBC (265-462) ug/dL Iron Saturation (20-39) % Ferritin (11.1-264) ng/mL Total Bilirubin 0.50 (0.2-1.3) mg/dL AST 72 H (14-36) U/L ALT 55 H (0-35) U/L Alkaline Phosphatase 300 H (38-126) U/L Serum Total Protein 7.5 (6.3-8.2) g/dL Albumin 3.8 (3.5-5.0) g/dL Lipase (23-300) U/L Vitamin B12 (239-931) pg/mL Folic Acid (2.76 - >20) ng/mL Procalcitonin (0.030-0.080) ng/mL 12/16/24 12/16/24 Range/Units 16:28 21:35 WBC (3.98-10.04) x10^3/uL RBC (3.93-5.22) x10^6/uL Hgb (11.2-15.7) g/dL Hct (34.1-44.9) % MCV (79.4-94.8) fL MCH (25.6-32.2) pg MCHC (32.2-35.5) g/dL RDW (11.7-14.4) % Plt Count (182-369) x10^3/uL MPV (9.4-12.3) fL Gran % (34.0-71.1) % Immature Gran % (Auto) (0.001-0.429) % Nucleat RBC Rel Count (0.00-0.2) % Eos # (Auto) (0.04-0.36) x10^3/uL Immature Gran # (Auto) (0.001-0.031) x10^3u/L Absolute Lymphs (auto) (1.18-3.74) x10^3/uL Absolute Monos (auto) (0.24-0.86) x10^3/uL Absolute Nucleated RBC (0.00-0.012) x10^3u/L Lymphocytes % (19.3-51.7) % Monocytes % (4.7-12.5) % Eosinophils % (0.7-5.8) % Basophils % (0.1-1.2) % Absolute Granulocytes (1.56-6.13) x10^3/uL Basophils # (0.01-0.08) x10^3/uL Sodium (135-145) mmol/L Potassium (3.5-5.1) mmol/L Chloride (98-107) mmol/L Carbon Dioxide (22-30) mmol/L Anion Gap (5-15) MEQ/L BUN (7-17) mg/dL Creatinine (0.52-1.04) mg/dL Estimated GFR ML/MIN Glucose (74-106) mg/dL POC Glucometer 241 H 321 H (74 to 106) mg/dL Calcium (8.4-10.2) mg/dL Iron (37-170) ug/dL TIBC (265-462) ug/dL Iron Saturation (20-39) % Ferritin (11.1-264) ng/mL Total Bilirubin (0.2-1.3) mg/dL AST (14-36) U/L ALT (0-35) U/L Alkaline Phosphatase (38-126) U/L Serum Total Protein (6.3-8.2) g/dL Albumin (3.5-5.0) g/dL Lipase (23-300) U/L Vitamin B12 (239-931) pg/mL Folic Acid (2.76 - >20) ng/mL Procalcitonin (0.030-0.080) ng/mL Radiology Exams: Radiology Procedures Category Date Time Status CHEST 1 VIEW (PORTABLE) Stat Exams 12/15/24 08:34 Completed FLUOROSCOPY UP TO 1 HR Routine Exams 12/16/24 08:00 Completed HIP UNI (2V) INCL PEL IF DONE Routine Exams 12/16/24 08:00 Completed HIP UNILATERAL (1 VIEW) Routine Exams 12/15/24 09:34 Completed Multi-Disciplinary Progress Notes: Multi-Disciplinary Progress Notes 12/16/24 16:53 OT Plan of Care Note by Jcarlos (L#[id number])Marlin OT Eval OT Inpatient Eval and POC Start: 12/16/24 10:49 Freq: ONCE Status: Complete Protocol: Created 12/16/24 10:50 JULIA (Rec: 12/16/24 10:50 JULIA [id number]) Document 12/16/24 16:25 KA (Rec: 12/16/24 16:52 KA [id number]) OT Evaluation Subjective EV IS AGREEABLE TO EVALUATION ; 2 FAMILY MEMBERS PRESENT IN ROOM. Pertinent Past Medical History SEE PMH BELOW *LIMB ALERT IN LEFT UE DUE TO LYMPHEDEMA Prior Level of Function PATIENT RESIDES AT HOME WITH 2 FAMILY MEMBERS, UTILIZED CANE AND WALKER ADAPTIVE DEVICE WITHIN THE HOME. SHE OWNS A ROLLATOR, BUT FAMILY DOES NOT LET HER USE IT DUE TO SAFETY CONCERNS. SHE WAS INDEPENDENT WITH ADLS AT HOME. PRIOR HISTORY LIMITED DUE TO POOR HISTORIAN BY PATIENT. Equipment at Home Prior to Admission Walker,Cane Home Setup [id number] Date 12/16/24 Feeding Impaired Comment PATIENT REQUIRES MAX ASSIST TO HOLD/MANAGE HER DRINK. FAMILY REPORTS THAT SHE HAS ONLY ATE A CRACKER SINCE SURGERY. Grooming Impaired Comment MAX ASSIST Bathing Impaired Comment MAX ASSIST Dressing Impaired Comment MAX ASSIST Toileting Impaired Comment MAX ASSIST Bed Mobility Impaired Comment MAX ASSIST X2 Toilet Transfers Impaired Functional Transfers Impaired Comment UNABLE TO ASSESS DUE TO SIGNIFICANT PAIN AND POOR STABILITY AT EOB. Functional Endurance POOR (+); ABLE TO TOLERATE SITTING AT EDGE OF BED WITH CGA FOR APPROXIMATELY 2 MINUTES Cognition ALERT AND ORIENTED TO NAME ONLY. VERBAL CUES WITH POOR PROCESESING NOTED; REQUIRED TACTILE CUES THROUGHOUT SESSION. Pain PATIENT REPORTS SIGNIFICANT PAIN DURING REST AND TRANSFERS THIS DATE WITH HER LEFT HIP. Objective Data/Standardized Assessment(s CARBAJAL: 0/6 INDICATING HIGH ) LEVEL OF DEPENDENCE WITH ADLS Comment SHE REQUIRED MAX ASSIST X 2 WITH SUPINE<>SIT T/F AND 2 SIT <>STAND T/FS. DUE TO POOR COGNITIVE PROCESSING, INCREASED PAIN RESPONSE, AND POOR TRANSFER/WEIGHTBEARING; UNABLE TO TRANSFER TO CHAIR THIS DATE. OT Plan Of Care Date of Evaluation 12/16/24 Treatment Diagnosis LEFT HIP FRACTURE, IM NAILING OF LEFT HIP Precaution/Orders as written HIGH FALL RISK Teaching Recipient Patient,Family Patient is Aware of Diagnosis and Yes Prognosis Patient is receptive to Plan of Care and Yes contributory towards OT goals Functional Problem List EV PRESENTS WITH POOR COGNITIVE PROCESSING, GENERALIZED WEAKNESS, DECREASED ACTIVITY TOLERANCE, SIGNIFICANT PAIN LEVEL LIMITING INDEPENDENCE WITH I/ ADLS AND QUALITY OF LIFE. Therapuetic Interventions SELF CARE, THERAPEUTIC EXERCISE, THERAPEUTIC ACTIVITY , PATIENT EDUCATION Functional Goals of Treatment 1) BY 12/23/24, EV AND FAMILY WILL DEMONSTRATE INDEPENDENCE WITH HEP, ACTIVITY MODIFICATION, AND SAFETY INSIGHT TO FACILITATE SAFE D/C HOME. 2) BY 12/23/24, EV WILL DEMONSTRATE INDEPENDENCE WITH GROOMING AND FEEDING/EATING WHILE SITTING UPRIGHT IN CHAIR OR AT EDGE OF BED TO FACILTIATE SAFE D/C. 3) BY 12/23/24, EV WILL COMPLETE FUNCTIONAL TRANSFER TO [facility] WITH MOD ASSIST IN ORDER TO FACILTIATE SAFE D/C. Frequency/Duration 5X/WEEK Rehabilitation Potential for Goals/ Good Barriers to Progress Discharge Recommendations/Plan PATIENT MAY BENEFIT FROM FURTHER SKILLED THERAPY AND NURSING CARE AT SNF UPON D/C; HOWEVER, RECOMMENDATION MAY CHANGE PENDING ON STATUS POD # 1. Medical & Surgical History Past Medical History Yes Neurological History No Pertinent History ENT History Cataracts Endocrine History Diabetes Type II Respiratory History No Pertinent History Cardiac History High Cholesterol,Hypertension GI History GERD History Renal Disease,Other Female Reproductive Disorders Breast Cancer Musculoskeletal History Rheumatoid Arthritis,Other Psycho-Social History No Pertinent History Other Medical History 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, psoriatior arthritis Past Surgical History Yes Hx Anesthesia Reactions Yes: hard to wake up Hx Malignant Hyperthermia No Neurological Surgical History No Pertinent History ENT Surgical History Cataract Surgery Respiratory Surgical History No Pertinent History Cardiac Surgical History No Pertinent History Gastrointestinal Surgical History No Pertinent History Genitourinary Surgical History No Pertinent History Female Surgical History Section,Tubal Ligation Musculoskeletal Surgical History Orthopedic Surgery Other Surgical History left arm fx repair with hardware,breast cancer surgery ,left rotator cuff, port placement and removal, left arm tanvir placed,c-sections times 2 Alcohol None Drug Use none Hx Substance Use Treatment No Initialized on 12/16/24 16:53 - END OF NOTE 12/16/24 11:31 Pharmacy Note by Reynold Recio Lovenox dose decreased to 30mg per renal dosing policy. Estimated crcl is 29ml/min. Initialized on 12/16/24 11:31 - END OF NOTE 12/16/24 09:45 Case Management Note by Joselyn Patel PATIENT IN OR TODAY- WILL NEED TO SEE HOW PATIENT DOES WITH PHYSICAL THERAPY POST OPERATIVELY TO SEE HOW MUCH SUPPORT FAMILY FEELS PATIENT WILL NEED AT [place]. THEY IDEALLY WOULD LIKE PATIENT TO RETURN HOME WITH EITHER HHC OR OTPT THERAPY BUT THEY ARE OPEN TO CONSIDERING A REHAB STAY IF NEEDED Initialized on 12/16/24 09:45 - END OF NOTE Assessment/Plan (1) Intertrochanteric fracture of left femur Current Visit: Yes Status: Acute Qualifiers: Encounter type: initial encounter Fracture type: closed Fracture alignment: displaced Qualified Code(s): S72.142A - Displaced intertrochanteric fracture of left femur, initial encounter for closed fracture Assessment & Plan: -Reviewed ortho note - intramedullary nailing planned 12/16/24 -non-weightbearing on the left leg with -pain managed via PRN morphine 12/17: -POD#1 -NWB to left leg per ortho -PT to evaluate Code(s): S72.142A - DISPLACED INTERTROCHANTERIC FRACTURE OF LEFT FEMUR, INIT (2) Leukocytosis Current Visit: Yes Status: Acute Assessment & Plan: -WBC reviewed at 19.8 ?reactive -No obvious source of infection -trend -CXR non acute -UA with no growth on culture -Blood cultures ordered - will start on Ceftriaxone empirically 12/17: -WBC reviewed and down-trending now at 16.7- no obvious source of infection -Blood and urine cultures with ngtd -Will continue Ceftriaxone empirically x a total of 7 days Code(s): D72.829 - ELEVATED WHITE BLOOD CELL COUNT, UNSPECIFIED (3) Anemia Current Visit: Yes Status: Acute Assessment & Plan: normocytic, chronic, with current hemoglobin at 7.8 and stable. No evidence of acute bleeding -trend - will add iron studies 12/17: -Hgb 6.4 s/p surgery- will transfuse with 2 units lprbc -iron studies reviewed and sat at 19% - will add ferrous sulfate Code(s): D64.9 - ANEMIA, UNSPECIFIED (4) CKD (chronic kidney disease) stage 3, GFR 30-59 ml/min Current Visit: Yes Status: Acute Assessment & Plan: patient's baseline creatinine is 1.4-1.6 Cmp reviewed and at 1.52 -trend -avoid nephrotoxic agents -IVF 12/17: -creat reviewed at 1.36 and at baseline Code(s): N18.30 - CHRONIC KIDNEY DISEASE, STAGE 3 UNSPECIFIED (5) HTN (hypertension) Current Visit: Yes Status: Acute Assessment & Plan: Continue Norvasc increased at 10 mg daily Code(s): I10 - ESSENTIAL (PRIMARY) HYPERTENSION (6) History of TIA (transient ischemic attack) Current Visit: Yes Status: Acute Assessment & Plan: Continue atorvastatin 80, Plavix 75 Code(s): Z86.73 - PRSNL HX OF TIA (TIA), AND CEREB INFRC W/O RESID DEFICITS (7) Fall Current Visit: Yes Status: Acute Assessment & Plan: -see plan for fracture above -PT/OT eval when able -may need placement for rehab after surgery Code(s): W19.XXXA - UNSPECIFIED FALL, INITIAL ENCOUNTER (8) Diabetes mellitus Current Visit: No Status: Acute Assessment & Plan: -ADA diet -A1c -SSI VTE: hold for surgery Dispo 2-3 days - may need rehab on discharge Code status: Full code Code(s): S72.142A - DISPLACED INTERTROCHANTERIC FRACTURE OF LEFT FEMUR, INIT (2) Leukocytosis Current Visit: Yes Status: Acute Code(s): D72.829 - ELEVATED WHITE BLOOD CELL COUNT, UNSPECIFIED (3) Anemia Current Visit: Yes Status: Acute Code(s): D64.9 - ANEMIA, UNSPECIFIED (4) CKD (chronic kidney disease) stage 3, GFR 30-59 ml/min Current Visit: Yes Status: Acute Code(s): N18.30 - CHRONIC KIDNEY DISEASE, STAGE 3 UNSPECIFIED (5) HTN (hypertension) Current Visit: Yes Status: Acute Code(s): I10 - ESSENTIAL (PRIMARY) HYPERTENSION (6) History of TIA (transient ischemic attack) Current Visit: Yes Status: Acute Code(s): Z86.73 - PRSNL HX OF TIA (TIA), AND CEREB INFRC W/O RESID DEFICITS (7) Fall Current Visit: Yes Status: Acute Code(s): W19.XXXA - UNSPECIFIED FALL, INITIAL ENCOUNTER (8) Diabetes mellitus Current Visit: No Status: Acute Code(s): E11.9 - TYPE 2 DIABETES MELLITUS WITHOUT COMPLICATIONS
[2024-12-17 06:07] LABS: ALBUMIN 2.7 g/dL (3.5-5.0); BILIRUBIN,TOTAL 0.5 mg/dL (0.2-1.3); Calcium 7.6 mg/dL (8.4-10.2); Creatinine 1 1.36 mg/dL (0.52-1.04); EST GLOMERULAR FILTRATION RATE 40.6 ML/MIN; Potassium 4.1 mmol/L (3.5-5.1); Total Protein 5.7 g/dL (6.3-8.2)
[2024-12-17] MEDS: TYLENOL EXTRA STRENGTH 500 MG PO PRN (07:45)
[2024-12-17 08:15] LABS: Absolute Neutrophil Ct (ANC) 14.02 x10^3/uL (1.56-6.13); BASOPHIL % 0.4 % (0.1-1.2); Basophil (Absolute #) 0.07 x10^3/uL (0.01-0.08); Eosinophil % 0.2 % (0.7-5.8); Eosinophil (Absolute #) 0.04 x10^3/uL (0.04-0.36); Hematocrit 20.4 % (34.1-44.9); IMMATURE GRAN # 0.09 x10^3u/L (0.001-0.031); IMMATURE GRAN % 0.5 % (0.001-0.429); Lymphocyte (Absolute #) 1.21 x10^3/uL (1.18-3.74); Lymphocytes % 7.2 % (19.3-51.7); Mean Cell Volume 85.7 fL (79.4-94.8); Mean Corpuscular Hemoglobin 26.9 pg (25.6-32.2); Mean Corpuscular Hgb Concent. 31.4 g/dL (32.2-35.5); Mean Platelet Volume 9.7 fL (9.4-12.3); Monocyte (Absolute #) 1.26 x10^3/uL (0.24-0.86); Monocytes % 7.5 % (4.7-12.5); Neutrophil % 84.2 % (34.0-71.1); Platelet Count 160 x10^3/uL (182-369); Red Blood Count 2.38 x10^6/uL (3.93-5.22); Red Cell Distribution Width 14.2 % (11.7-14.4); White Blood Count 16.7 x10^3/uL (3.98-10.04)
[2024-12-17 08:24] LABS: Hemoglobin 6.4 g/dL (11.2-15.7)
[2024-12-17 09:41] LABS: CROSS MATCH (PRBC) COMPATIBLE (COMPATIBLE)
[2024-12-17 09:43] LABS: CROSS MATCH (PRBC) COMPATIBLE (COMPATIBLE)
[2024-12-17] MEDS: ROCEPHIN 1 GM / 100 ML NaCl 1 GM/100 ML IVPB IV SCH (10:20)
[2024-12-17] MEDS: ENOXAPARIN SODIUM SQ SCH (10:34)
[2024-12-17] MEDS: FEOSOL 325 MG PO SCH (12:21)
[2024-12-17] MEDS: Docusate Sodium 100 MG PO PRN (13:57)
[2024-12-17 19:35] LABS: Hematocrit 29.6 % (34.1-44.9)
[2024-12-17 19:42] LABS: Hemoglobin 9.4 g/dL (11.2-15.7)
--- NOTE | 2024-12-17 21:50 | OP ---
SURGERY DATE/TIME: 12/16/2024 [id number] PREOPERATIVE DIAGNOSIS: Left hip intertrochanteric femur fracture. POSTOPERATIVE DIAGNOSIS: Left hip intertrochanteric femur fracture. PROCEDURE: Closed reduction and intramedullary nailing of left intertrochanteric femur fracture. SURGEON: Benja Crane MD SHREDDING MACHINE OPERATOR: NASRA Arndt ANESTHESIA: General. ESTIMATED BLOOD LOSS: 100 mL. COMPLICATIONS: None. INDICATIONS: The patient is a 74-year-old female who fell and injured her left hip on the evening of 12/14/2024. She presented to the emergency room where x-rays revealed a comminuted intertrochanteric femur fracture on the left. I was consulted to evaluate the injury. I recommended intramedullary nailing. I explained risks associated with the procedure, including but not limited to infection, pain, bleeding, damage to surrounding structures, stiffness, limp, nonunion, malunion, blood clot, and need for further procedures. After explaining all risks, benefits, and alternative treatment options, she desired to proceed with surgery. DESCRIPTION OF PROCEDURE AND FINDINGS: The patient was taken to the operating room and placed in the supine position. IV antibiotics were administered and general anesthesia was administered as well. She was then placed on the fracture table. Her left foot was placed in the foot traction device and her right leg was placed in a well legholder. Traction was then applied to the left lower extremity. The C-arm was used to view the fracture and it was noted to be in adequate alignment. The left hip and thigh region were then prepped and draped in standard sterile fashion. At this time, an incision was made longitudinally, proximal to the greater trochanter. Dissection was carried down and a guide pin was advanced partway down the proximal femur, beginning at the tip of the greater trochanter. The guide pin was then overreamed with the proximal reamer. At this time, a Biomet Affixus 125-degree, 11 mm x 180 mm nail was advanced down across the fracture site. Using the guide and through a small incision laterally, the guide pin was advanced into the femoral head. The position was slightly posterior on the lateral and this was felt to be adequate. The length of the screw was then measured. The canal was then prepared and a 90 mm lag screw was advanced into the femoral head. Through a small stab incision distally, an appropriate length 5.0 mm screw was placed through the static locking position of the nail distally. The C-arm was used to confirm adequate fracture alignment and hardware fixation. The wounds were then thoroughly irrigated with normal saline. The subcutaneous tissue was closed with 2-0 Vicryl sutures and the skin for all of the incisions was closed with akua. A sterile dressing was then applied. Estimated blood loss was 100 mL. There were no complications. The patient was then awakened from anesthesia and taken to the recovery room in stable condition.
[2024-12-18 05:01] LABS: Absolute Neutrophil Ct (ANC) 11.59 x10^3/uL (1.56-6.13); BASOPHIL % 0.4 % (0.1-1.2); Basophil (Absolute #) 0.06 x10^3/uL (0.01-0.08); Eosinophil % 0.6 % (0.7-5.8); Eosinophil (Absolute #) 0.08 x10^3/uL (0.04-0.36); Hematocrit 29.5 % (34.1-44.9); Hemoglobin 9.6 g/dL (11.2-15.7); IMMATURE GRAN # 0.09 x10^3u/L (0.001-0.031); IMMATURE GRAN % 0.6 % (0.001-0.429); Lymphocyte (Absolute #) 1.27 x10^3/uL (1.18-3.74); Mean Corpuscular Hemoglobin 27.7 pg (25.6-32.2); Mean Corpuscular Hgb Concent. 32.5 g/dL (32.2-35.5); Mean Platelet Volume 10.7 fL (9.4-12.3); Monocyte (Absolute #) 0.97 x10^3/uL (0.24-0.86); Monocytes % 6.9 % (4.7-12.5); Neutrophil % 82.5 % (34.0-71.1); Platelet Count 159 x10^3/uL (182-369); Red Blood Count 3.47 x10^6/uL (3.93-5.22); Red Cell Distribution Width 14.2 % (11.7-14.4); White Blood Count 14.1 x10^3/uL (3.98-10.04)
--- NOTE | 2024-12-18 05:08 | PCM.NOTE ---
Date and Time: 12/18/24 0509 Subjective Assessment: A 74-year-old woman with a history of type 2 diabetes, hypertension, dementia, CKD stage III, and prior TIA presents after a mechanical fall resulting in a comminuted left intertrochanteric femoral fracture. She was attempting to open the refrigerator while wearing slick socks, lost her balance, and fell backward onto the kitchen island before landing on the floor. She reports severe left hip pain but denies loss of consciousness, head trauma, dizziness, lightheadedness, or preceding symptoms suggestive of a syncopal or infectious etiology. Orthopedics was consulted in the ED and recommends intramedullary nailing, though OR availability is delayed until 12/16/24. She remains non-weightbearing on the left leg with pain managed via PRN morphine. 12/16/24: Plan for surgery today intramedullary nailing. Patient evaluated s/p intramedullary nailing. Reports zero pain currently. Spoke with son at bedside, plan is for patient to discharge home if she does well with PT. Patient has been hypertensive and amlodipine increased. 12/17/24: Met with patient bedside, son in law present. POD#1 Endorses significant pain with movement, rating at 7/10 on numerical scale. Hemoglobin was 6.4 this morning and patient is set up to receive 2 units lprbc. WBC is now down-trending with no obvious source of infection. Creat is at baseline. Plan for patient to work with PT for evaluation on discharge plans. Objective Data Vital Signs: Vital Signs - 24 hr Temp Pulse Resp BP Pulse Ox 12/18/24 04:00 97.5 F 66 17 148/70 100 12/18/24 00:00 18 12/17/24 19:40 98.5 F 74 18 144/62 97 12/17/24 16:00 97.5 F 75 22 160/70 98 12/17/24 13:33 93 L 12/17/24 13:31 93 L 12/17/24 12:00 97.8 F 72 20 148/65 98 12/17/24 08:00 98.7 F 76 18 136/65 98 Pain Assessment - Last Documented Pain Intensity 0 Pain Scale Used 0-10 Pain Scale Intake and Output: Intake & Output 12/15/24 12/16/24 12/17/24 12/18/24 11:59 11:59 11:59 11:59 Intake Total 0 520 1857 2991 Output Total 700 104 827 5092 Balance -700 -30 1082 1141 Weight 59.7 kg 59.7 kg 59.7 kg Lab Results: Lab Results-Last 24 Hours 12/17/24 12/17/24 12/17/24 Range/Units 04:54 04:54 06:59 WBC 16.7 H (3.98-10.04) x10^3/uL RBC 2.38 L (3.93-5.22) x10^6/uL Hgb 6.4 L* D (11.2-15.7) g/dL Hct 20.4 L (34.1-44.9) % MCV 85.7 (79.4-94.8) fL MCH 26.9 (25.6-32.2) pg MCHC 31.4 L (32.2-35.5) g/dL RDW 14.2 (11.7-14.4) % Plt Count 160 L D (182-369) x10^3/uL MPV 9.7 (9.4-12.3) fL Gran % 84.2 H (34.0-71.1) % Immature Gran % (Auto) 0.5 H (0.001-0.429) % Nucleat RBC Rel Count 0.0 (0.00-0.2) % Eos # (Auto) 0.04 (0.04-0.36) x10^3/uL Immature Gran # (Auto) 0.09 H (0.001-0.031) x10^3u/L Absolute Lymphs (auto) 1.21 (1.18-3.74) x10^3/uL Absolute Monos (auto) 1.26 H (0.24-0.86) x10^3/uL Absolute Nucleated RBC 0.00 (0.00-0.012) x10^3u/L Lymphocytes % 7.2 L (19.3-51.7) % Monocytes % 7.5 (4.7-12.5) % Eosinophils % 0.2 L (0.7-5.8) % Basophils % 0.4 (0.1-1.2) % Absolute Granulocytes 14.02 H (1.56-6.13) x10^3/uL Basophils # 0.07 (0.01-0.08) x10^3/uL Sodium 134 L (135-145) mmol/L Potassium 4.1 (3.5-5.1) mmol/L Chloride 97 L (98-107) mmol/L Carbon Dioxide 23 (22-30) mmol/L Anion Gap 17.0 H (5-15) MEQ/L BUN 27 H (7-17) mg/dL Creatinine 1.36 H (0.52-1.04) mg/dL Estimated GFR 40.6 ML/MIN Glucose 195 H (74-106) mg/dL POC Glucometer 208 H (74 to 106) mg/dL Calcium 7.6 L (8.4-10.2) mg/dL Total Bilirubin 0.50 (0.2-1.3) mg/dL AST 50 H (14-36) U/L ALT 24 (0-35) U/L Alkaline Phosphatase 224 H (38-126) U/L Serum Total Protein 5.7 L (6.3-8.2) g/dL Albumin 2.7 L (3.5-5.0) g/dL Crossmatch (COMPATIBLE) 12/17/24 12/17/24 12/17/24 Range/Units 08:00 08:00 11:27 WBC (3.98-10.04) x10^3/uL RBC (3.93-5.22) x10^6/uL Hgb (11.2-15.7) g/dL Hct (34.1-44.9) % MCV (79.4-94.8) fL MCH (25.6-32.2) pg MCHC (32.2-35.5) g/dL RDW (11.7-14.4) % Plt Count (182-369) x10^3/uL MPV (9.4-12.3) fL Gran % (34.0-71.1) % Immature Gran % (Auto) (0.001-0.429) % Nucleat RBC Rel Count (0.00-0.2) % Eos # (Auto) (0.04-0.36) x10^3/uL Immature Gran # (Auto) (0.001-0.031) x10^3u/L Absolute Lymphs (auto) (1.18-3.74) x10^3/uL Absolute Monos (auto) (0.24-0.86) x10^3/uL Absolute Nucleated RBC (0.00-0.012) x10^3u/L Lymphocytes % (19.3-51.7) % Monocytes % (4.7-12.5) % Eosinophils % (0.7-5.8) % Basophils % (0.1-1.2) % Absolute Granulocytes (1.56-6.13) x10^3/uL Basophils # (0.01-0.08) x10^3/uL Sodium (135-145) mmol/L Potassium (3.5-5.1) mmol/L Chloride (98-107) mmol/L Carbon Dioxide (22-30) mmol/L Anion Gap (5-15) MEQ/L BUN (7-17) mg/dL Creatinine (0.52-1.04) mg/dL Estimated GFR ML/MIN Glucose (74-106) mg/dL POC Glucometer 172 H (74 to 106) mg/dL Calcium (8.4-10.2) mg/dL Total Bilirubin (0.2-1.3) mg/dL AST (14-36) U/L ALT (0-35) U/L Alkaline Phosphatase (38-126) U/L Serum Total Protein (6.3-8.2) g/dL Albumin (3.5-5.0) g/dL Crossmatch COMPATIBLE COMPATIBLE (COMPATIBLE) 12/17/24 12/17/24 12/17/24 Range/Units 16:18 19:30 20:41 WBC (3.98-10.04) x10^3/uL RBC (3.93-5.22) x10^6/uL Hgb 9.4 L D (11.2-15.7) g/dL Hct 29.6 L (34.1-44.9) % MCV (79.4-94.8) fL MCH (25.6-32.2) pg MCHC (32.2-35.5) g/dL RDW (11.7-14.4) % Plt Count (182-369) x10^3/uL MPV (9.4-12.3) fL Gran % (34.0-71.1) % Immature Gran % (Auto) (0.001-0.429) % Nucleat RBC Rel Count (0.00-0.2) % Eos # (Auto) (0.04-0.36) x10^3/uL Immature Gran # (Auto) (0.001-0.031) x10^3u/L Absolute Lymphs (auto) (1.18-3.74) x10^3/uL Absolute Monos (auto) (0.24-0.86) x10^3/uL Absolute Nucleated RBC (0.00-0.012) x10^3u/L Lymphocytes % (19.3-51.7) % Monocytes % (4.7-12.5) % Eosinophils % (0.7-5.8) % Basophils % (0.1-1.2) % Absolute Granulocytes (1.56-6.13) x10^3/uL Basophils # (0.01-0.08) x10^3/uL Sodium (135-145) mmol/L Potassium (3.5-5.1) mmol/L Chloride (98-107) mmol/L Carbon Dioxide (22-30) mmol/L Anion Gap (5-15) MEQ/L BUN (7-17) mg/dL Creatinine (0.52-1.04) mg/dL Estimated GFR ML/MIN Glucose (74-106) mg/dL POC Glucometer 178 H 220 H (74 to 106) mg/dL Calcium (8.4-10.2) mg/dL Total Bilirubin (0.2-1.3) mg/dL AST (14-36) U/L ALT (0-35) U/L Alkaline Phosphatase (38-126) U/L Serum Total Protein (6.3-8.2) g/dL Albumin (3.5-5.0) g/dL Crossmatch (COMPATIBLE) Radiology Exams: Radiology Procedures Category Date Time Status FLUOROSCOPY UP TO 1 HR Routine Exams 12/16/24 08:00 Completed HIP UNI (2V) INCL PEL IF DONE Routine Exams 12/16/24 08:00 Completed Multi-Disciplinary Progress Notes: Multi-Disciplinary Progress Notes 12/17/24 18:03 Case Management Note by Joselyn Patel S/W PATIENT AND FAMILY- THEY WOULD LIKE PATIENT TO GO FOR A SHORT TERM REHAB STAY AT [facility]. [facility] COMPLETE- NO LEVEL II REQUIRED FULL REFERRAL WAS SENT WITH [facility] TO [facility]- THEY HAVE ACCEPTED [facility] VAN SCHEDULED FOR EXCHANGE SPECIALIST 12/18 @1500. (CAN CANCEL IF NOT READY FOR DC) Initialized on 12/17/24 18:03 - END OF NOTE 12/17/24 15:33 Occupational Therapy Note by Jcarlos (L#[id number])Marlin OT attempted session again; however, she recently transferred to [facility]. She reports feeling much better while sitting up, and family reports that she will begin her next blood transfusion when the nurse returns to the room. Initialized on 12/17/24 15:33 - END OF NOTE 12/17/24 13:20 Case Management Note by Joselyn Patel VERIFIED WITH FAMILY IN ROOM- PATENT HAS HISTORY OF DEMENTIA Initialized on 12/17/24 13:20 - END OF NOTE 12/17/24 11:05 Occupational Therapy Note by Jcarlos (L#[id number])Marlin OT WILL HOLD TREATMENT SESSION AT THIS TIME PATIENT'S HGB DECREASED TO 6.4 AND SHE IS RECEIVING A BLOOD TRANSFUSION. WILL ATTEMPT BACK LATER IN DAY APPROPRIATE. Initialized on 12/17/24 11:05 - END OF NOTE Assessment/Plan (1) Intertrochanteric fracture of left femur Current Visit: Yes Status: Acute Qualifiers: Encounter type: initial encounter Fracture type: closed Fracture alignment: displaced Qualified Code(s): S72.142A - Displaced intertrochanteric fracture of left femur, initial encounter for closed fracture Assessment & Plan: -Reviewed ortho note - intramedullary nailing planned 12/16/24 -non-weightbearing on the left leg with -pain managed via PRN morphine 12/17: -POD#1 -NWB to left leg per ortho -PT to evaluate Code(s): S72.142A - DISPLACED INTERTROCHANTERIC FRACTURE OF LEFT FEMUR, INIT (2) Leukocytosis Current Visit: Yes Status: Acute Assessment & Plan: -WBC reviewed at 19.8 ?reactive -No obvious source of infection -trend -CXR non acute -UA with no growth on culture -Blood cultures ordered - will start on Ceftriaxone empirically 12/17: -WBC reviewed and down-trending now at 16.7- no obvious source of infection -Blood and urine cultures with ngtd -Will continue Ceftriaxone empirically x a total of 7 days Code(s): D72.829 - ELEVATED WHITE BLOOD CELL COUNT, UNSPECIFIED (3) Anemia Current Visit: Yes Status: Acute Assessment & Plan: normocytic, chronic, with current hemoglobin at 7.8 and stable. No evidence of acute bleeding -trend - will add iron studies 12/17: -Hgb 6.4 s/p surgery- will transfuse with 2 units lprbc -iron studies reviewed and sat at 19% - will add ferrous sulfate Code(s): D64.9 - ANEMIA, UNSPECIFIED (4) CKD (chronic kidney disease) stage 3, GFR 30-59 ml/min Current Visit: Yes Status: Acute Assessment & Plan: patient's baseline creatinine is 1.4-1.6 Cmp reviewed and at 1.52 -trend -avoid nephrotoxic agents -IVF 12/17: -creat reviewed at 1.36 and at baseline Code(s): N18.30 - CHRONIC KIDNEY DISEASE, STAGE 3 UNSPECIFIED (5) HTN (hypertension) Current Visit: Yes Status: Acute Assessment & Plan: Continue Norvasc increased at 10 mg daily Code(s): I10 - ESSENTIAL (PRIMARY) HYPERTENSION (6) History of TIA (transient ischemic attack) Current Visit: Yes Status: Acute Assessment & Plan: Continue atorvastatin 80, Plavix 75 Code(s): Z86.73 - PRSNL HX OF TIA (TIA), AND CEREB INFRC W/O RESID DEFICITS (7) Fall Current Visit: Yes Status: Acute Assessment & Plan: -see plan for fracture above -PT/OT eval when able -may need placement for rehab after surgery Code(s): W19.XXXA - UNSPECIFIED FALL, INITIAL ENCOUNTER (8) Diabetes mellitus Current Visit: No Status: Acute Assessment & Plan: -ADA diet -A1c -SSI Code(s): S72.142A - DISPLACED INTERTROCHANTERIC FRACTURE OF LEFT FEMUR, INIT (2) Leukocytosis Current Visit: Yes Status: Acute Code(s): D72.829 - ELEVATED WHITE BLOOD CELL COUNT, UNSPECIFIED (3) Anemia Current Visit: Yes Status: Acute Code(s): D64.9 - ANEMIA, UNSPECIFIED (4) CKD (chronic kidney disease) stage 3, GFR 30-59 ml/min Current Visit: Yes Status: Acute Code(s): N18.30 - CHRONIC KIDNEY DISEASE, STAGE 3 UNSPECIFIED (5) HTN (hypertension) Current Visit: Yes Status: Acute Code(s): I10 - ESSENTIAL (PRIMARY) HYPERTENSION (6) History of TIA (transient ischemic attack) Current Visit: Yes Status: Acute Code(s): Z86.73 - PRSNL HX OF TIA (TIA), AND CEREB INFRC W/O RESID DEFICITS (7) Fall Current Visit: Yes Status: Acute Code(s): W19.XXXA - UNSPECIFIED FALL, INITIAL ENCOUNTER (8) Diabetes mellitus Current Visit: No Status: Acute Code(s): E11.9 - TYPE 2 DIABETES MELLITUS WITHOUT COMPLICATIONS
[2024-12-18 05:21] LABS: ALBUMIN 2.9 g/dL (3.5-5.0); ANION GAP 12.7 MEQ/L (5-15); BILIRUBIN,TOTAL 0.5 mg/dL (0.2-1.3); Creatinine 1 1.53 mg/dL (0.52-1.04); EST GLOMERULAR FILTRATION RATE 35.3 ML/MIN; Potassium 3.6 mmol/L (3.5-5.1); Total Protein 6.3 g/dL (6.3-8.2)
[2024-12-18 07:25] VITALS: RESP 16
--- NOTE | 2024-12-18 08:52 | PCM.NOTE ---
Date and Time: 12/18/24817 Subjective Assessment: Resting comfortably in bed. Pain controlled. afebrile. HGB stable. Left hip bandage dry, intact. NVI. A/P: POD #2 s/p IM nailing left hip fracture. Plan on DC to rehab today. Continue lovenox BID for 30 days Change left hip dressing at 7 days post op, then daily dry dressing changes Follow up in clinic 10-14 days for staple removal. Objective Data Vital Signs: Vital Signs - 24 hr Temp Pulse Resp BP Pulse Ox 12/18/24 07:30 98 12/18/24 07:25 97.5 F 69 16 141/67 99 12/18/24 04:00 97.5 F 66 17 148/70 100 12/18/24 00:00 18 12/17/24 19:40 98.5 F 74 18 144/62 97 12/17/24 16:00 97.5 F 75 22 160/70 98 12/17/24 13:33 93 L 12/17/24 13:31 93 L 12/17/24 12:00 97.8 F 72 20 148/65 98 Pain Assessment - Last Documented Pain Intensity 0 Pain Scale Used 0-10 Pain Scale Intake and Output: Intake & Output 12/16/24 12/17/24 12/18/24 12/19/24 06:59 06:59 06:59 06:59 Intake Total 520 1737 3111 Output Total 393 077 0268 Balance -30 962 1261 Weight 59.7 kg 59.7 kg Lab Results: Lab Results-Last 24 Hours 12/17/24 12/17/24 12/17/24 Range/Units 04:54 08:00 08:00 WBC 16.7 H (3.98-10.04) x10^3/uL RBC 2.38 L (3.93-5.22) x10^6/uL Hgb 6.4 L* D (11.2-15.7) g/dL Hct 20.4 L (34.1-44.9) % MCV 85.7 (79.4-94.8) fL MCH 26.9 (25.6-32.2) pg MCHC 31.4 L (32.2-35.5) g/dL RDW 14.2 (11.7-14.4) % Plt Count 160 L D (182-369) x10^3/uL MPV 9.7 (9.4-12.3) fL Gran % 84.2 H (34.0-71.1) % Immature Gran % (Auto) 0.5 H (0.001-0.429) % Nucleat RBC Rel Count 0.0 (0.00-0.2) % Eos # (Auto) 0.04 (0.04-0.36) x10^3/uL Immature Gran # (Auto) 0.09 H (0.001-0.031) x10^3u/L Absolute Lymphs (auto) 1.21 (1.18-3.74) x10^3/uL Absolute Monos (auto) 1.26 H (0.24-0.86) x10^3/uL Absolute Nucleated RBC 0.00 (0.00-0.012) x10^3u/L Lymphocytes % 7.2 L (19.3-51.7) % Monocytes % 7.5 (4.7-12.5) % Eosinophils % 0.2 L (0.7-5.8) % Basophils % 0.4 (0.1-1.2) % Absolute Granulocytes 14.02 H (1.56-6.13) x10^3/uL Basophils # 0.07 (0.01-0.08) x10^3/uL Sodium (135-145) mmol/L Potassium (3.5-5.1) mmol/L Chloride (98-107) mmol/L Carbon Dioxide (22-30) mmol/L Anion Gap (5-15) MEQ/L BUN (7-17) mg/dL Creatinine (0.52-1.04) mg/dL Estimated GFR ML/MIN Glucose (74-106) mg/dL POC Glucometer (74 to 106) mg/dL Calcium (8.4-10.2) mg/dL Total Bilirubin (0.2-1.3) mg/dL AST (14-36) U/L ALT (0-35) U/L Alkaline Phosphatase (38-126) U/L Serum Total Protein (6.3-8.2) g/dL Albumin (3.5-5.0) g/dL Crossmatch COMPATIBLE COMPATIBLE (COMPATIBLE) 12/17/24 12/17/24 12/17/24 Range/Units 11:27 16:18 19:30 WBC (3.98-10.04) x10^3/uL RBC (3.93-5.22) x10^6/uL Hgb 9.4 L D (11.2-15.7) g/dL Hct 29.6 L (34.1-44.9) % MCV (79.4-94.8) fL MCH (25.6-32.2) pg MCHC (32.2-35.5) g/dL RDW (11.7-14.4) % Plt Count (182-369) x10^3/uL MPV (9.4-12.3) fL Gran % (34.0-71.1) % Immature Gran % (Auto) (0.001-0.429) % Nucleat RBC Rel Count (0.00-0.2) % Eos # (Auto) (0.04-0.36) x10^3/uL Immature Gran # (Auto) (0.001-0.031) x10^3u/L Absolute Lymphs (auto) (1.18-3.74) x10^3/uL Absolute Monos (auto) (0.24-0.86) x10^3/uL Absolute Nucleated RBC (0.00-0.012) x10^3u/L Lymphocytes % (19.3-51.7) % Monocytes % (4.7-12.5) % Eosinophils % (0.7-5.8) % Basophils % (0.1-1.2) % Absolute Granulocytes (1.56-6.13) x10^3/uL Basophils # (0.01-0.08) x10^3/uL Sodium (135-145) mmol/L Potassium (3.5-5.1) mmol/L Chloride (98-107) mmol/L Carbon Dioxide (22-30) mmol/L Anion Gap (5-15) MEQ/L BUN (7-17) mg/dL Creatinine (0.52-1.04) mg/dL Estimated GFR ML/MIN Glucose (74-106) mg/dL POC Glucometer 172 H 178 H (74 to 106) mg/dL Calcium (8.4-10.2) mg/dL Total Bilirubin (0.2-1.3) mg/dL AST (14-36) U/L ALT (0-35) U/L Alkaline Phosphatase (38-126) U/L Serum Total Protein (6.3-8.2) g/dL Albumin (3.5-5.0) g/dL Crossmatch (COMPATIBLE) 12/17/24 12/18/24 12/18/24 Range/Units 20:41 04:56 04:56 WBC 14.1 H (3.98-10.04) x10^3/uL RBC 3.47 L (3.93-5.22) x10^6/uL Hgb 9.6 L (11.2-15.7) g/dL Hct 29.5 L (34.1-44.9) % MCV 85.0 (79.4-94.8) fL MCH 27.7 (25.6-32.2) pg MCHC 32.5 (32.2-35.5) g/dL RDW 14.2 (11.7-14.4) % Plt Count 159 L (182-369) x10^3/uL MPV 10.7 (9.4-12.3) fL Gran % 82.5 H (34.0-71.1) % Immature Gran % (Auto) 0.6 H (0.001-0.429) % Nucleat RBC Rel Count 0.0 (0.00-0.2) % Eos # (Auto) 0.08 (0.04-0.36) x10^3/uL Immature Gran # (Auto) 0.09 H (0.001-0.031) x10^3u/L Absolute Lymphs (auto) 1.27 (1.18-3.74) x10^3/uL Absolute Monos (auto) 0.97 H (0.24-0.86) x10^3/uL Absolute Nucleated RBC 0.00 (0.00-0.012) x10^3u/L Lymphocytes % 9.0 L (19.3-51.7) % Monocytes % 6.9 (4.7-12.5) % Eosinophils % 0.6 L (0.7-5.8) % Basophils % 0.4 (0.1-1.2) % Absolute Granulocytes 11.59 H (1.56-6.13) x10^3/uL Basophils # 0.06 (0.01-0.08) x10^3/uL Sodium 137 (135-145) mmol/L Potassium 3.6 (3.5-5.1) mmol/L Chloride 101 (98-107) mmol/L Carbon Dioxide 27 (22-30) mmol/L Anion Gap 12.7 (5-15) MEQ/L BUN 26 H (7-17) mg/dL Creatinine 1.53 H (0.52-1.04) mg/dL Estimated GFR 35.3 ML/MIN Glucose 149 H (74-106) mg/dL POC Glucometer 220 H (74 to 106) mg/dL Calcium 8.0 L (8.4-10.2) mg/dL Total Bilirubin 0.50 (0.2-1.3) mg/dL AST 51 H (14-36) U/L ALT 15 (0-35) U/L Alkaline Phosphatase 215 H (38-126) U/L Serum Total Protein 6.3 (6.3-8.2) g/dL Albumin 2.9 L (3.5-5.0) g/dL Crossmatch (COMPATIBLE) 12/18/24 Range/Units 07:19 WBC (3.98-10.04) x10^3/uL RBC (3.93-5.22) x10^6/uL Hgb (11.2-15.7) g/dL Hct (34.1-44.9) % MCV (79.4-94.8) fL MCH (25.6-32.2) pg MCHC (32.2-35.5) g/dL RDW (11.7-14.4) % Plt Count (182-369) x10^3/uL MPV (9.4-12.3) fL Gran % (34.0-71.1) % Immature Gran % (Auto) (0.001-0.429) % Nucleat RBC Rel Count (0.00-0.2) % Eos # (Auto) (0.04-0.36) x10^3/uL Immature Gran # (Auto) (0.001-0.031) x10^3u/L Absolute Lymphs (auto) (1.18-3.74) x10^3/uL Absolute Monos (auto) (0.24-0.86) x10^3/uL Absolute Nucleated RBC (0.00-0.012) x10^3u/L Lymphocytes % (19.3-51.7) % Monocytes % (4.7-12.5) % Eosinophils % (0.7-5.8) % Basophils % (0.1-1.2) % Absolute Granulocytes (1.56-6.13) x10^3/uL Basophils # (0.01-0.08) x10^3/uL Sodium (135-145) mmol/L Potassium (3.5-5.1) mmol/L Chloride (98-107) mmol/L Carbon Dioxide (22-30) mmol/L Anion Gap (5-15) MEQ/L BUN (7-17) mg/dL Creatinine (0.52-1.04) mg/dL Estimated GFR ML/MIN Glucose (74-106) mg/dL POC Glucometer 150 H (74 to 106) mg/dL Calcium (8.4-10.2) mg/dL Total Bilirubin (0.2-1.3) mg/dL AST (14-36) U/L ALT (0-35) U/L Alkaline Phosphatase (38-126) U/L Serum Total Protein (6.3-8.2) g/dL Albumin (3.5-5.0) g/dL Crossmatch (COMPATIBLE) Radiology Exams: Radiology Procedures Category Date Time Status FLUOROSCOPY UP TO 1 HR Routine Exams 12/16/24 08:00 Completed HIP UNI (2V) INCL PEL IF DONE Routine Exams 12/16/24 08:00 Completed Multi-Disciplinary Progress Notes: Multi-Disciplinary Progress Notes 12/17/24 18:03 Case Management Note by Joselyn Patel S/W PATIENT AND FAMILY- THEY WOULD LIKE PATIENT TO GO FOR A SHORT TERM REHAB STAY AT [facility]. [facility] COMPLETE- NO LEVEL II REQUIRED FULL REFERRAL WAS SENT WITH [facility] TO [facility]- THEY HAVE ACCEPTED [facility] VAN SCHEDULED FOR LOGISTICS ASSOCIATE 12/18 @1500. (CAN CANCEL IF NOT READY FOR DC) Initialized on 12/17/24 18:03 - END OF NOTE 12/17/24 15:33 Occupational Therapy Note by Jcarlos (L#[id number])Marlin OT attempted session again; however, she [facility]. She reports feeling much better while sitting up, and family reports that she will begin her next blood transfusion when the nurse returns to the room. Initialized on 12/17/24 15:33 - END OF NOTE 12/17/24 13:20 Case Management Note by Joselyn Patel VERIFIED WITH FAMILY IN ROOM- PATENT HAS HISTORY OF DEMENTIA Initialized on 12/17/24 13:20 - END OF NOTE 12/17/24 11:05 Occupational Therapy Note by Jcarlos (L#[id number])Marlin OT WILL HOLD TREATMENT SESSION AT THIS TIME PATIENT'S HGB DECREASED TO 6.4 AND SHE IS RECEIVING A BLOOD TRANSFUSION. WILL ATTEMPT BACK LATER IN DAY APPROPRIATE. Initialized on 12/17/24 11:05 - END OF NOTE
--- NOTE | 2024-12-18 09:42 | PCM.DS ---
Discharge Summary Date of Admission: 12/15/24 08:00 Date of Discharge: 12/18/24 Admitting Physician: LIVIA PERES MD Consults: Consults on Case 12/14/24 22:30 Consult Ortho ROUTINE 12/15/24 07:00 Consult Ortho ROUTINE Primary Care Provider: SAMAN BARNETT Allergies Allergies diphenhydramine HCl [From Benadryl] Adverse Reaction (Mild, Verified 12/14/24 20:47) "itchy & red face" Hospital Summary - Hospital Course Hospital Course: Ms. Harrington is a a 74-year-old female with a history of type 2 diabetes, hypertension, dementia, chronic kidney disease stage III, and a prior transient ischemic attack, who was admitted 12/15/24 following a mechanical fall resulting in a comminuted left intertrochanteric femoral fracture. The patient underwent successful intramedullary nailing surgery for the fracture on 12/16/24 and had an uneventful postoperative course initially, reporting no pain post-surgery. However, by postoperative day 1 (12/17/24), the patient experienced significant pain with movement (7/10 on the pain scale) and was noted to have a hemoglobin level of 6.4, prompting the administration of 2 units of packed red blood cells (PRBC). Despite this, her white blood cell count was down-trending without signs of infection, and her renal function remained stable with creatinine at basel ine. Patient will remain on ceftriaxone for a total of 7 days 12/17/24-12/23/24. The patients blood pressure was monitored, and her amlodipine dosage was increased to address her hypertension. The plan includes discharge to a rehabilitation facility for continued physical therapy and dressing changes for the surgical site. Per ortho she is to continue her plavix with the addition of a 325mg aspirin for the next four week- then just plavix there after. A follow- up appointment is scheduled in 10-14 days for staple removal. The patients discharge and rehabilitation plans were discussed with her son, and she is expected to continue recovery with close monitoring of her pain and overall progress. I spent 35 minutes [id number] with the patient on the day of discharge performing discharge exam, discussing hospital stay and discharge instructions with patient and caregivers, preparation of discharge records, prescriptions & referral forms and addressing any questions/concerns the patient had as documented above. - Vitals & Intake/Output Vital Signs: Vital Signs Temperature 97.5 F 12/18/24 07:25 Pulse Rate 69 12/18/24 07:25 Respiratory Rate 16 12/18/24 07:25 Blood Pressure 141/67 12/18/24 07:25 O2 Sat by Pulse Oximetry 98 12/18/24 07:30 Intake & Output: Intake & Output 12/15/24 12/16/24 12/17/24 12/18/24 11:59 11:59 11:59 11:59 Intake Total 0 520 1857 2991 Output Total 700 716 208 1930 Balance -700 -30 1082 1141 Weight 59.7 kg 59.7 kg 59.7 kg - Lab Result Diagrams: 12/18/24 04:56 12/18/24 04:56 Lab Results-Last 24 Hrs: Lab Results-Last 24 Hours 12/17/24 12/17/24 12/17/24 Range/Units 08:00 08:00 11:27 WBC (3.98-10.04) x10^3/uL RBC (3.93-5.22) x10^6/uL Hgb (11.2-15.7) g/dL Hct (34.1-44.9) % MCV (79.4-94.8) fL MCH (25.6-32.2) pg MCHC (32.2-35.5) g/dL RDW (11.7-14.4) % Plt Count (182-369) x10^3/uL MPV (9.4-12.3) fL Gran % (34.0-71.1) % Immature Gran % (Auto) (0.001-0.429) % Nucleat RBC Rel Count (0.00-0.2) % Eos # (Auto) (0.04-0.36) x10^3/uL Immature Gran # (Auto) (0.001-0.031) x10^3u/L Absolute Lymphs (auto) (1.18-3.74) x10^3/uL Absolute Monos (auto) (0.24-0.86) x10^3/uL Absolute Nucleated RBC (0.00-0.012) x10^3u/L Lymphocytes % (19.3-51.7) % Monocytes % (4.7-12.5) % Eosinophils % (0.7-5.8) % Basophils % (0.1-1.2) % Absolute Granulocytes (1.56-6.13) x10^3/uL Basophils # (0.01-0.08) x10^3/uL Sodium (135-145) mmol/L Potassium (3.5-5.1) mmol/L Chloride (98-107) mmol/L Carbon Dioxide (22-30) mmol/L Anion Gap (5-15) MEQ/L BUN (7-17) mg/dL Creatinine (0.52-1.04) mg/dL Estimated GFR ML/MIN Glucose (74-106) mg/dL POC Glucometer 172 H (74 to 106) mg/dL Calcium (8.4-10.2) mg/dL Total Bilirubin (0.2-1.3) mg/dL AST (14-36) U/L ALT (0-35) U/L Alkaline Phosphatase (38-126) U/L Serum Total Protein (6.3-8.2) g/dL Albumin (3.5-5.0) g/dL Crossmatch COMPATIBLE COMPATIBLE (COMPATIBLE) 12/17/24 12/17/24 12/17/24 Range/Units 16:18 19:30 20:41 WBC (3.98-10.04) x10^3/uL RBC (3.93-5.22) x10^6/uL Hgb 9.4 L D (11.2-15.7) g/dL Hct 29.6 L (34.1-44.9) % MCV (79.4-94.8) fL MCH (25.6-32.2) pg MCHC (32.2-35.5) g/dL RDW (11.7-14.4) % Plt Count (182-369) x10^3/uL MPV (9.4-12.3) fL Gran % (34.0-71.1) % Immature Gran % (Auto) (0.001-0.429) % Nucleat RBC Rel Count (0.00-0.2) % Eos # (Auto) (0.04-0.36) x10^3/uL Immature Gran # (Auto) (0.001-0.031) x10^3u/L Absolute Lymphs (auto) (1.18-3.74) x10^3/uL Absolute Monos (auto) (0.24-0.86) x10^3/uL Absolute Nucleated RBC (0.00-0.012) x10^3u/L Lymphocytes % (19.3-51.7) % Monocytes % (4.7-12.5) % Eosinophils % (0.7-5.8) % Basophils % (0.1-1.2) % Absolute Granulocytes (1.56-6.13) x10^3/uL Basophils # (0.01-0.08) x10^3/uL Sodium (135-145) mmol/L Potassium (3.5-5.1) mmol/L Chloride (98-107) mmol/L Carbon Dioxide (22-30) mmol/L Anion Gap (5-15) MEQ/L BUN (7-17) mg/dL Creatinine (0.52-1.04) mg/dL Estimated GFR ML/MIN Glucose (74-106) mg/dL POC Glucometer 178 H 220 H (74 to 106) mg/dL Calcium (8.4-10.2) mg/dL Total Bilirubin (0.2-1.3) mg/dL AST (14-36) U/L ALT (0-35) U/L Alkaline Phosphatase (38-126) U/L Serum Total Protein (6.3-8.2) g/dL Albumin (3.5-5.0) g/dL Crossmatch (COMPATIBLE) 12/18/24 12/18/24 12/18/24 Range/Units 04:56 04:56 07:19 WBC 14.1 H (3.98-10.04) x10^3/uL RBC 3.47 L (3.93-5.22) x10^6/uL Hgb 9.6 L (11.2-15.7) g/dL Hct 29.5 L (34.1-44.9) % MCV 85.0 (79.4-94.8) fL MCH 27.7 (25.6-32.2) pg MCHC 32.5 (32.2-35.5) g/dL RDW 14.2 (11.7-14.4) % Plt Count 159 L (182-369) x10^3/uL MPV 10.7 (9.4-12.3) fL Gran % 82.5 H (34.0-71.1) % Immature Gran % (Auto) 0.6 H (0.001-0.429) % Nucleat RBC Rel Count 0.0 (0.00-0.2) % Eos # (Auto) 0.08 (0.04-0.36) x10^3/uL Immature Gran # (Auto) 0.09 H (0.001-0.031) x10^3u/L Absolute Lymphs (auto) 1.27 (1.18-3.74) x10^3/uL Absolute Monos (auto) 0.97 H (0.24-0.86) x10^3/uL Absolute Nucleated RBC 0.00 (0.00-0.012) x10^3u/L Lymphocytes % 9.0 L (19.3-51.7) % Monocytes % 6.9 (4.7-12.5) % Eosinophils % 0.6 L (0.7-5.8) % Basophils % 0.4 (0.1-1.2) % Absolute Granulocytes 11.59 H (1.56-6.13) x10^3/uL Basophils # 0.06 (0.01-0.08) x10^3/uL Sodium 137 (135-145) mmol/L Potassium 3.6 (3.5-5.1) mmol/L Chloride 101 (98-107) mmol/L Carbon Dioxide 27 (22-30) mmol/L Anion Gap 12.7 (5-15) MEQ/L BUN 26 H (7-17) mg/dL Creatinine 1.53 H (0.52-1.04) mg/dL Estimated GFR 35.3 ML/MIN Glucose 149 H (74-106) mg/dL POC Glucometer 150 H (74 to 106) mg/dL Calcium 8.0 L (8.4-10.2) mg/dL Total Bilirubin 0.50 (0.2-1.3) mg/dL AST 51 H (14-36) U/L ALT 15 (0-35) U/L Alkaline Phosphatase 215 H (38-126) U/L Serum Total Protein 6.3 (6.3-8.2) g/dL Albumin 2.9 L (3.5-5.0) g/dL Crossmatch (COMPATIBLE) Micro Results-Entire Visit: Microbiology 12/16/24 14:05 Blood Culture - Preliminary Blood 12/16/24 18:26 Blood Culture - Preliminary Blood 12/14/24 21:36 Urine Culture - Final Urine, Catheterized NO GROWTH 12/15/24 01:00 Urine Culture - Final Catherized NO GROWTH Accuchecks Date 12/18/24 Date 12/17/24 Date 12/17/24 Date 12/17/24 Time 07:34 Time 21:00 - Procedures and Test Procedures and Tests throughout Hospitalization: Therapy Orders & Screens 12/15/24 13:30 Oxygen NASAL CANNULA 2 lpm Comment: Diagnosis: LEFT HIP FRACTURE, ACUTE PAIN, LEUKOCYTOSIS 12/16/24 07:00 EKG ROUTINE Comment: ordered from anesthesia Diagnosis: LEFT HIP FRACTURE, ACUTE PAIN, LEUKOCYTOSIS 12/16/24 10:48 Incentive Spirometry ROUTINE Comment: Diagnosis: LEFT HIP FRACTURE, ACUTE PAIN, LEUKOCYTOSIS 12/16/24 10:49 PT Eval & Treat (MD Order) ONCE Reason for Eval:: Intramedullary nailing of left hip fracture Diagnosis: LEFT HIP FRACTURE, ACUTE PAIN, LEUKOCYTOSIS OT Eval and Treat (MD Order) ONCE Comment: Physician Instructions: Reason For Exam: Intramedullary nailing of left hip fracture Diagnosis: LEFT HIP FRACTURE, ACUTE PAIN, LEUKOCYTOSIS Discharge Exam General Appearance: no apparent distress Neurologic Exam: alert, cooperative, disoriented, confusion Eye Exam: PERRL Ears, Nose, Throat Exam: normal ENT inspection Neck Exam: normal inspection Respiratory Exam: normal breath sounds, lungs clear Cardiovascular Exam: regular rate/rhythm, normal heart sounds Gastrointestinal/Abdomen Exam: soft, normal bowel sounds Pelvic Exam: deferred Rectal Exam: deferred Back Exam: normal inspection Extremity Exam: other (Left arm chronic lymphedema with compression sleeve) Skin Exam: normal color, other (Surgical wound to left hip with) Final Diagnosis/Problem List - Final Discharge Diagnosis/Problem (1) Intertrochanteric fracture of left femur Current Visit: Yes Status: Resolved Code(s): S72.142A - DISPLACED INTERTROCHANTERIC FRACTURE OF LEFT FEMUR, INIT (2) Leukocytosis Current Visit: Yes Status: Acute Code(s): D72.829 - ELEVATED WHITE BLOOD CELL COUNT, UNSPECIFIED (3) Anemia Current Visit: Yes Status: Chronic Code(s): D64.9 - ANEMIA, UNSPECIFIED (4) CKD (chronic kidney disease) stage 3, GFR 30-59 ml/min Current Visit: Yes Status: Chronic Code(s): N18.30 - CHRONIC KIDNEY DISEASE, STAGE 3 UNSPECIFIED (5) HTN (hypertension) Current Visit: Yes Status: Chronic Code(s): I10 - ESSENTIAL (PRIMARY) HYPERT ENSION (6) History of TIA (transient ischemic attack) Current Visit: Yes Status: Chronic Code(s): Z86.73 - PRSNL HX OF TIA (TIA), AND CEREB INFRC W/O RESID DEFICITS (7) Fall Current Visit: Yes Status: Chronic Code(s): W19.XXXA - UNSPECIFIED FALL, INITIAL ENCOUNTER (8) Diabetes mellitus Current Visit: No Status: Chronic Code(s): E11.9 - TYPE 2 DIABETES MELLITUS WITHOUT COMPLICATIONS - Discharge Discharge Date: 12/18/24 Disposition: DC TO ANY "OTHER" SKILLED NURSING Condition: Stable Prescriptions: New Hydrocodone/Acetaminophen [Hydrocodone-Acetamin 5-325 mg] 1 tab PO Q4HPRN PRN 14 Days #84 tablet MDD 6 PRN Reason: Pain Docusate Sodium 100 mg [Docusate Sodium 100 MG] 100 mg PO BID PRN PRN cap PRN Reason: Constipation Ferrous Sulfate 325 mg [Feosol 325 mg] 325 mg PO DAILY tablet Amlodipine Besylate 5 mg [Norvasc 5 mg] 10 mg PO QAM tablet PANTOPRAZOLE 40 mg Tablet [Protonix 40MG Tablet] 40 mg PO DAILY tablet Ceftriaxone Sodium [ROCEPHIN 1 GM / 100 ML NaCl] 1 gm IV Q24H 5 Days #5 iv piggy Cholecalciferol (Vitamin D3) [Vitamin D] 1,000 unit PO DAILY tablet Aspirin EC 325 mg [Ecotrin 325 MG] 325 mg PO DAILY 30 Days #30 tab Continue Loratadine 10 mg [Claritin 10 mg] 10 mg PO DAILY Cholecalciferol (Vitamin D3) [Vitamin D3] 1,000 unit PO DAILY Omeprazole 20 mg PO DAILY Folic Acid 1 mg [Folate 1 mg] 1 mg PO DAILY Metformin HCl 500 mg [Glucophage 500 MG] 500 mg PO BIDWM Atorvastatin Calcium 80 mg PO DAILY 30 Days #30 tablet Clopidogrel Bisulfate [PLAVIX Tablet] 75 mg PO DAILY 30 Days #30 tablet Quetiapine Fumarate [Seroquel] 25 mg PO QHS 30 Days #30 tablet Discontinued Insulin Lispro [Humalog] 100 unit SQ QIDPRN PRN PRN Reason: sliding scale Amlodipine Besylate 5 mg [Norvasc 5 mg] 5 mg PO QAM 30 Days #30 tablet Additional Instructions: COBBLESTONE ORDERS: ADMIT TO SKILLED SNF [address] ADA DIET ACHS ACCU CHECKS 2L/NC -WEAN TOLERATED PT/OT EVAL AND TREAT WEIGHT BEARING TOLERATED CHANGE HIP DRESSING AT 7 DAYS POST OP(12/23)- THEN DAILY DRY DRESSING CHANGES FOLLOW UP WITH ORTHO SCHEDULED IN 10-14 DAYS FOR STAPLE REMOVAL CONTINUE LOVENOX BID FOR 30 DAYS SEE RX FOR PAIN MEDS ROCEPHIN TO CONTINUE TO COMPLETE 7 DAY COURSE STARTED 12/17/24 SEE ATTACHED MED LIST Follow up with: SAMAN BARNETT [Primary Care Provider] - 02/12/25 10:00 am JEFF SAAVEDRA MD [ACTIVE STAFF] - 12/28/24 11:00 am (for staple removal)
--- NOTE | 2024-12-18 11:48 | XRAY ---
Indication: Left arm edema. History breast cancer with known axilla mass. Two-dimensional sonogram and color Doppler imaging major venous vessels left upper extremity performed. Comparison: None No thrombus seen in the visualized left internal jugular, subclavian, axillary, brachial, basilic, cephalic, radial, and ulnar veins. Veins demonstrate normal compressibility and normal venous waveforms. Axilla demonstrates incidental 5.0 x 3.8 x 5.4 cm soft tissue mass, probable lymphadenopathy. Impression: 1. Left upper extremity negative for venous thrombosis. 2. Incidental axillary soft tissue mass, probably lymphadenopathy. Patient is scheduled for biopsy.
[2024-12-18 12:01] VITALS: BP 140/64; PULSE 75; TEMP 97.6; O2SAT 97
== END 2024-12-18 15:15 | DRG 482 ==
LOC: ED 20:22 → MED SURG 23:39 → OBSVTOIN 12-15 08:00
PROVIDERS: ADMIT Internal Medicine; ATTEND Internal Medicine
PROC: 0QSC34Z Reposition Left Lower Femur with Internal Fixation Device, Percutaneous Approach (ICD-10-PCS; principal; 2024-12-16)
DX: S72.142A Displaced intertrochanteric fracture of left femur, initial encounter for closed fracture (principal); E11.22 Type 2 diabetes mellitus with diabetic chronic kidney disease; I12.9 Hypertensive chronic kidney disease with stage 1 through stage 4 chronic kidney disease, or unspecified chronic kidney disease; N18.30 Chronic kidney disease, stage 3 unspecified; D72.829 Elevated white blood cell count, unspecified; D64.9 Anemia, unspecified; W19.XXXA Unspecified fall, initial encounter; Z86.73 Personal history of transient ischemic attack (TIA), and cerebral infarction without residual deficits; Z85.3 Personal history of malignant neoplasm of breast; Z79.899 Other long term (current) drug therapy; Z79.01 Long term (current) use of anticoagulants
CPT/HCPCS: 27245; 36415; 36430; 71045; 72192; 73501; 73502; 73700; 76000; 80048; 80053; 81001; 82607; 82728; 82746; 82947; 83540; 83550; 83690; 84134; 84145; 85014; 85018; 85025; 85027; 86850; 86900; 86901; 86922; 87040; 87086; 93005; 93971; 94760; 96374; 96375; 96376; 97110; 97161; 97165; 97530; 99285; G0378; P9016; Q3014; 99024; 99221; C1713; J0690; J0696; J1644; J1650; J1817; J2270; J2371; J2405; J2704; J3010; A9270-GY